=== PATIENT | female | born 1955 | race Caucasian/White ===

== ENCOUNTER 2017-11-17 23:13 | Inpatient (IN) | payer OTHER ==
[~2017-11-17] VITALS: Ht 170.2 cm; Wt 87.0 kg
[2017-11-18] VITALS (12 sets, daily range): BP systolic 161–189; BP diastolic 70–80; PULSE 71–80; RESP 10–23; TEMP 98.4–98.9; O2SAT 94–99
[2017-11-18] MEDS ORDERED: LACTULOSE SYRUP 20 GM/30 ML CUP PO PRN (03:30)
[2017-11-18] MEDS ORDERED: RESP: ALBUTEROL 2.5 MG/IPRATROPIUM 0.5 MG NEB (PRN) INH (03:30)
[2017-11-18] MEDS ORDERED: BISACODYL 10 MG SUPP RECTAL PRN (03:30)
[2017-11-18] MEDS ORDERED: MISCELLANEOUS NURSING INFORMATION XX SCH (03:30)
[2017-11-18] MEDS ORDERED: CHLORHEXIDINE GLUCONATE 2 % 1 PACK (2 CLOTHS) TOP PRN (03:30)
[2017-11-18] MEDS ORDERED: HYDROmorphone HCL PF 2 MG/ML VIAL IV PRN (03:45)
[2017-11-18] MEDS: CHLORHEXIDINE GLUCONATE 2 % 1 PACK (2 CLOTHS) TOP SCH (03:57)
[2017-11-18] MEDS: D5-1/2 NS + KCL 20 MEQ INJ 1,000 ML IV SCH ×3 (04:11→23:31)
[2017-11-18] MEDS: HYDROmorphone HCL PF 2 MG/ML VIAL IV PRN ×3 (04:12→21:41)
[2017-11-18] MEDS: ONDANSETRON HCL 4 MG/2 ML VIAL IV PUSH PRN ×2 (04:12→12:15)
[2017-11-18 04:15] LABS: HEMATOCRIT 37.2 % (35.0-46.0); MEAN CELL VOLUME 85.1 FL (80.0-100.0); MEAN CORPUSCULAR HEMOGLOBIN 29.7 PG (27.0-34.0); MEAN CORPUSCULAR HGB CONC 34.9 % (32.0-36.0); MEAN PLATELET VOLUME 9.5 FL (7.0-11.0); PLATELET COUNT 152 TH/MM3 (150-450); RED BLOOD COUNT 4.37 MIL/MM3 (4.00-5.30); RED CELL DISTRIBUTION WIDTH 14.1 % (11.6-17.2); WHITE BLOOD COUNT 7.2 TH/MM3 (4.0-11.0)
--- NOTE | 2017-11-18 04:16 | HHI.HP ---
HPI Service Critical Care Medicine Primary Care Physician Unknown Admission Diagnosis Elevated LFTs, CBD obstruction Diagnosis: Travel History International Travel<30 Days: No Contact w/Intl Traveler <30 Da: No Traveled to Known Affected Are: No History of Present Illness 62-year-old female was admitted to the [facility] when she presented with abdominal pain going on for about a week. She was diagnosed to be in DKA. CT abdomen pelvis done on 11/15 revealed cholelithiasis as well as 10 mm pancreatic head hypodensity possibly a cyst. Patient was initially treated with insulin drip which was subsequently discontinued on 11/16. She underwent imaging studies including MRCP on 11/16 which revealed abrupt cutoff of common hepatic duct related to cystic mass in the pancreatic head. HIDA scan on 11/17 revealed normal gallbladder, CBD and obstruction of common hepatic duct. Patient was transferred to [facility] for evaluation by GI for ERCP. Patient was admitted by critical care medicine service to [facility]. I evaluated the patient following her arrival. She was hemodynamically stable maintaining her blood pressure and denied any shortness of breath fever or chills. She did have some nausea and abdominal pain. Denied any diarrhea, melena or rectal bleeding. History is obtained by discussion with patient as well as reviewing records sent over from [facility]. Review of Systems ROS Per HPI. Otherwise unremarkable Past Family Social History Allergies: Coded Allergies: metoclopramide (Unverified Allergy, Mild, 11/18/17) Past Medical History Denies any medical problems before. Past Surgical History Hysterectomy Reported Medications Lovenox 40 mg subcutaneous tennis daily, Zofran 4 mg IV every 4 hourly when necessary, D5 half NS with 20mEq KCl at 150 cc per hour, Dilaudid 0.5 mg every 3 hourly when necessary for pain, sliding scale insulin Family History Noncontributory at this time Social History Mother in her late 80s from an [place]. Physical Exam Laboratory Labs from outside hospital reviewed: White count 5.6, hemoglobin 11.5, hematocrit 33.8, platelets 135 Total bilirubin 8.9, direct bilirubin 7.34, AST 1038, ALP 1306, alkaline phosphatase 746, total protein 5.3, albumin 2.7, amylase 61, lipase 64 Sodium 141, potassium 3.3, chloride 111, bicarbonate 20, and BUN 12, creatinine 0.37, glucose 183, calcium 8.5, phosphorus 1.8, magnesium 1.8 Caprini VTE Risk Assessment Caprini VTE Risk Assessment: Mod/High Risk (score >= 2) VTE Pharm Contraindication: for possible ERCP Caprini Risk Assessment Model Point Value = 1 Point Value = 2 Point Value = 3 Point Value = 5 Age 41-60 Minor surgery BMI > 25 kg/m2 Swollen legs Varicose veins or History of unexplained or recurrent spontaneous Oral contraceptives or hormone replacement Sepsis (< 1 month) Serious lung disease, including pneumonia (< 1 month) Abnormal pulmonary function Acute myocardial infarction Congestive heart failure (< 1 month) History of inflammatory bowel disease Medical patient at bed rest Age 61-74 Arthroscopic surgery Major open surgery (> 45 min) Laparoscopic surgery (> 45 min) Malignancy Confined to bed (> 72 hours) Immobilizing plaster cast Central venous access Age >= 75 History of VTE Family history of VTE Factor V Leiden Prothrombin [id number] Lupus anticoagulant Anticardiolipin antibodies Elevated serum homocysteine Heparin-induced thrombocytopenia Other congenital or acquired thrombophilia Stroke (< 1 month) Elective arthroplasty Hip, pelvis, or leg fracture Acute spinal cord injury (< 1 month) Prophylaxis Regimen Total Risk Factor Score Risk Level Prophylaxis Regimen 0-1 Low Early ambulation 2 Moderate Order ONE of the following: *Sequential Compression Device (SCD) *Heparin 5000 units SQ BID 3-4 Higher Order ONE of the following medications: *Heparin 5000 units SQ TID *Enoxaparin/Lovenox 40 mg SQ daily (WT < 150 kg, CrCl > 30 mL/min) *Enoxaparin/Lovenox 30 mg SQ daily (WT < 150 kg, CrCl > 10-29 mL/min) *Enoxaparin/Lovenox 30 mg SQ BID (WT < 150 kg, CrCl > 30 mL/min) AND/OR *Sequential Compression Device (SCD) 5 or more Highest Order ONE of the following medications: *Heparin 5000 units SQ TID (Preferred with Epidurals) *Enoxaparin/Lovenox 40 mg SQ daily (WT < 150 kg, CrCl > 30 mL/min) *Enoxaparin/Lovenox 30 mg SQ daily (WT < 150 kg, CrCl > 10-29 mL/min) *Enoxaparin/Lovenox 30 mg SQ BID (WT < 150 kg, CrCl > 30 mL/min) AND *Sequential Compression Device (SCD) Assessment and Plan Assessment and Plan 62-year-old female with: New onset Diabetes mellitus DKA which is now resolved Cystic lesion and pancreatic head with common hepatic duct obstruction/ obstructive jaundice Elevated LFTs Cholelithiasis Hypertension Plan: Patient admitted to the ICU Dilaudid when necessary for pain, Percocet when necessary for pain Supplemental O2 as needed. Bronchodilators when necessary IV hydration. Keep nothing by mouth. GI consult requested for evaluation for ERCP for biliary tract obstruction from possible cystic lesion and pancreatic head. May eventually require laparoscopic cholecystectomy. Sliding scale insulin for glycemic control. Add Levemir 10 units subcutaneously daily as patient presented with DKA to outside hospital. Strict intake output, monitor and replete elect lites, follow BUN creatinine. Follow CBC and coags. GI prophylaxis with Pepcid, DVT prophylaxis with SCDs. Resume subcutaneous Lovenox when okay with GI. Further recommendations per GI. Patient will be transferred to hospitalist service for further medical management as she will possibly be transferred out of ICU following ERCP. Misha Braxton MD Nov 18, 2017 04:16
[2017-11-18 04:25] LABS: PROTHROMBIN TIME - PATIENT 10.1 SEC (9.8-11.6)
[2017-11-18] MEDS ORDERED: DEXTROSE 50% IN WATER 50 ML VIAL(D50) IV PRN (04:30)
[2017-11-18] MEDS ORDERED: GLUCAGON 1 MG/ML VIAL IM/SQ PRN (04:30)
[2017-11-18 04:40] LABS: ALBUMIN 2.6 GM/DL (3.4-5.0); AST (GOT) 969 U/L (15-37); BICARBONATE 23.1 MEQ/L (21.0-32.0); BLOOD UREA NITROGEN 7 MG/DL (7-18); CALCIUM 8.8 MG/DL (8.5-10.1); CHLORIDE 105 MEQ/L (98-107); CREATININE 0.81 MG/DL (0.50-1.00); GLUCOSE,RANDOM 227 MG/DL (74-106); MAGNESIUM 1.6 MG/DL (1.5-2.5); SODIUM (NA) 138 MEQ/L (136-145)
[2017-11-18 04:54] LABS: ALKALINE PHOSPHATASE 1001 U/L (45-117); ALT (GPT) 1404 U/L (10-53); PHOSPHORUS 1.7 MG/DL (2.5-4.9); TOTAL BILIRUBIN ADULT 12.1 MG/DL (0.2-1.0); TOTAL PROTEIN 5.8 GM/DL (6.4-8.2)
[2017-11-18 05:12] LABS: BANDS 4 % (0-6); BASOPHILS 1 % (0-2); LYMPHOCYTES 33 % (9-44); MONOCYTES 2 % (0-8); NEUTROPHIL # MANUAL DIFF 4.5 TH/MM3 (1.8-7.7); POLYS (SEG NEUTROPHILS) 59 % (16-70); STOMATOCYTES 1+ (NORMAL)
[2017-11-18 05:13] LABS: ACANTHOCYTES OCC (NORMAL)
[2017-11-18] MEDS: INSULIN ASPART SUPPLEMENTAL SCALE SQ SCH ×4 (05:50→22:04)
[2017-11-18] MEDS: FAMOTIDINE 20 MG/2 ML VIAL IV PUSH SCH ×2 (08:09→21:34)
[2017-11-18] MEDS: SODIUM CHLORIDE 0.9% FLUSH 10 ML FLUSH IV FLUSH SCH ×2 (08:09→21:34)
[2017-11-18] MEDS: INSULIN DETEMIR 100 UNITS/ML VIAL SQ SCH ×2 (08:09→21:34)
[2017-11-18] MEDS ORDERED: POTASSIUM PHOSPHATE MONOBASIC 500 MG TAB PO PRN (08:30)
[2017-11-18] MEDS ORDERED: MAGNESIUM OXIDE 400 MG TAB PO PRN (08:30)
[2017-11-18] MEDS ORDERED: POTASSIUM CHLORIDE 25 MEQ EFFERVESCENT TAB PO PRN (08:30)
[2017-11-18] MEDS ORDERED: POTASSIUM PHOSPHATE MONOBASIC 500 MG TAB PO/TUBE PRN (08:30)
[2017-11-18] MEDS ORDERED: MAGNESIUM SULFATE INJ 4 GM in SODIUM CHLORIDE 0.9% INJ 92 ML IV PRN (08:30)
[2017-11-18] MEDS ORDERED: POTASSIUM CHLOR 40 MEQ PREMIX 100 ML IV PRN ×2 (08:30)
[2017-11-18] MEDS ORDERED: MAGNESIUM SULFATE INJ 2 GM in SODIUM CHLORIDE 0.9% INJ 96 ML IV PRN (08:30)
[2017-11-18] MEDS ORDERED: POTASSIUM PHOSPHATE INJ 30 MMOL in SODIUM CHLOR 0.9% 250 ML INJ 250 ML IV PRN (08:30)
[2017-11-18] MEDS ORDERED: SODIUM PHOSPHATE INJ 30 MMOL in SODIUM CHLOR 0.9% 250 ML INJ 240 ML IV PRN (08:30)
--- NOTE | 2017-11-18 08:55 | RADRPT ---
EXAM DATE/TIME: 11/18/2017 08:35 [facility] COMPARISON: No previous studies available for comparison. INDICATIONS : Dypnea. MEDICAL HISTORY : Diabetes. SURGICAL HISTORY : Hysterectomy. ENCOUNTER: Initial ACUITY: 1 day PAIN SCORE: 0/10 LOCATION: Bilateral chest FINDINGS: Mild airspace disease in the left lower lung zone at the base. Cardiomedias noncontrast within normal limits. Bony thorax is intact. CONCLUSION: 1. Left lung base airspace disease, presumably atelectasis. Developing pneumonia cannot be excluded i n the appropriate clinical setting. Ameya Valdez MD on November 18, 2017 at 8:52 Board Certified Radiologist. This report was verified electronically.
--- NOTE | 2017-11-18 10:28 | PD.CONS ---
HPI History of Present Illness This is a 62 year old female who presented with abd pain and nausea that started 8 days ago, she was transferred from [place] for an ERCP. She started having upper quadrant pain 8 days ago. Admits vomiting but no emesis. Feels her abdomen has been more distended of late. No prior hx liver problems or problems with gallbladder or pancreas. Never had this pain before. Denies diarrhea. Not on blood thinenrs. Admits DM but controls with diet, takes not meds for it. CT 11/15/17 showed cholelithiasis, pancreatic head density poss cyst , MRCP 11/16 showed cystic mass, HIDA 11/17 indicated CBD obstruction. (Hortencia Chen) PFSH Past Medical History DM controlled with diet OA bursitis Past Surgical History hysterectomy (Hortencia Chen) Coded Allergies: metoclopramide (Unverified Allergy, Mild, 11/18/17) Family History low blood pressure Social History denies toxic habits (Hortencia Chen) Review of Systems Constitutional: DENIES: Fever Endocrine: DENIES: Polydipsia Eyes: DENIES: Blurred vision Ears, nose, mouth, throat: DENIES: Hearing loss Respiratory: DENIES: Cough Cardiovascular: DENIES: Chest pain Gastrointestinal: COMPLAINS OF: Abdominal pain, Nausea, Swelling of Abdomen, DENIES: Diarrhea, Vomiting Musculoskeletal: DENIES: Joint pain Integumentary: COMPLAINS OF: Jaundice Hematologic/lymphatic: DENIES: Bruising Immunologic/allergic: DENIES: Eczema Neurologic: DENIES: Abnormal gait Psychiatric: DENIES: Confusion (Hortencia Chen) GI Exam Vitals I&O Vital Signs Date Time Temp Pulse Resp B/P (MAP) Pulse Ox O2 Delivery O2 Flow Rate FiO2 11/18/17 08:00 98.7 80 23 177/75 (109) 99 11/18/17 08:00 71 11/18/17 06:00 72 11/18/17 05:00 98.6 74 10 173/74 (107) 96 11/18/17 04:00 98.6 75 12 185/80 (115) 97 11/18/17 04:00 75 I/O 11/17/17 11/17/17 11/17/17 11/18/17 11/18/17 11/18/17 07:00 15:00 23:00 07:00 15:00 23:00 Output Total 700 ml Balance -700 ml Output Urine Total 700 ml Imaging Last Impressions Chest X-Ray 11/18/17 0000 Signed Impressions: Service Date/Time: Saturday, November 18, 2017 08:35 - CONCLUSION: 1. Left lung base airspace disease, presumably atelectasis. Developing pneumonia cannot be excluded in the appropriate clinical setting. Ameya Valdez MD Laboratory Test 11/18/17 02:44 11/18/17 03:55 Nasal Screen MRSA (PCR) MRSA NOT DETECTED White Blood Count 7.2 TH/MM3 Red Blood Count 4.37 MIL/MM3 Hemoglobin 13.0 GM/DL Hematocrit 37.2 % Mean Corpuscular Volume 85.1 FL Mean Corpuscular Hemoglobin 29.7 PG Mean Corpuscular Hemoglobin Concent 34.9 % Red Cell Distribution Width 14.1 % Platelet Count 152 TH/MM3 Mean Platelet Volume 9.5 FL CBC Comment AUTO DIFF Differential Total Cells Counted 100 Neutrophils % (Manual) 59 % Band Neutrophils % 4 % Lymphocytes % 33 % Monocytes % 2 % Eosinophils % 1 % Basophils % 1 % Neutrophils # (Manual) 4.5 TH/MM3 Differential Comment FINAL DIFF MANUAL Atypical Lymphocytes % Platelet Estimate NORMAL Platelet Morphology Comment NORMAL Stomatocytes 1+ Acanthocytes OCC Prothrombin Time 10.1 SEC Prothromb Time International Ratio 1.0 RATIO Activated Partial Thromboplast Time 24.3 SEC Blood Urea Nitrogen 7 MG/DL Creatinine 0.81 MG/DL Random Glucose 227 MG/DL Total Protein 5.8 GM/DL Albumin 2.6 GM/DL Calcium Level 8.8 MG/DL Phosphorus Level 1.7 MG/DL Magnesium Level 1.6 MG/DL Alkaline Phosphatase 1001 U/L Aspartate Amino Transf (AST/SGOT) 969 U/L Alanine Aminotransferase (ALT/SGPT) 1404 U/L Total Bilirubin 12.1 MG/DL Sodium Level 138 MEQ/L Potassium Level 3.4 MEQ/L Chloride Level 105 MEQ/L Carbon Dioxide Level 23.1 MEQ/L Anion Gap 10 MEQ/L Amylase Level 29 U/L Lipase 189 U/L Physical Examination HEENT: PERRL; normocephalic; atraumatic; +icterus CHEST: CTA CARDIAC: RRR ABDOMEN: Soft, distended, diffuse TTP > upper quadrant; no hepatosplenomegaly ; bowel sounds are present in all four quadrants. EXTREMITIES: No clubbing, cyanosis, trace BLE edema SKIN: Normal; no rash; +jaundice. FELT STRIP FINISHER: No focal deficits; alert and oriented times three. (Hortencia Chen) Assessment and Plan Plan ASSESSMENT - abd pain, jaundice, elevated LFTs - LFTs elevated obstructive pattern, upper quadrant pain, nausea. choledocholithiasis vs cystic obstruction CBD CT 11/15 showed cholelithiasis, poss cyst pancreatic head, MRCP 11/16 showed cystic mass, HIDA 11/17 suggestive CBD obstruction. WBC is WNL - ?ascites - abd soft and distended. liver US is pending. PLAN - ERCP today - NPO - obtain consent - await hepatitis profile - liver w/u - await liver US - CMP in a - further recs to follow pt seen by myself and Dr Hickey and this note is on his behalf (Hortencia Chen) Physician Comments Seen and examined. Procedure explained, including risk, benefits and possible complications. Further recommendations to follow. (Luther Hickey MD) Hortnecia Chen Nov 18, 2017 10:28 Luther Hickey MD Nov 18, 2017 14:48
[2017-11-18] MEDS ORDERED: GLYCOPYRROLATE 1 MG/5 ML SYRINGE IV PUSH ONE (12:00)
[2017-11-18] MEDS ORDERED: SUCCINYLCHOLINE CHLORIDE 200 MG/10 ML VIAL IV ONE (12:00)
[2017-11-18] MEDS ORDERED: NEOSTIGMINE 5 MG/5 ML SYRINGE IV PUSH ONE (12:00)
[2017-11-18] MEDS ORDERED: ROCURONIUM INJ 50 MG/5 ML SYRINGE IV PUSH ONE (12:00)
[2017-11-18] MEDS ORDERED: LIDOCAINE HCL 1% PF 5 ML SYRINGE OTHER ONE (12:00)
[2017-11-18] MEDS ORDERED: PROPOFOL 200 MG/20 ML AMP IV ONE (12:00)
--- NOTE | 2017-11-18 12:23 | RADRPT ---
EXAM DATE/TIME: 11/18/2017 09:04 [facility] COMPARISON: No previous studies available for comparison. INDICATIONS : Increased lab values. MEDICAL HISTORY : Arthritis. Diabetes. SURGICAL HISTORY : Hysterectomy. ENCOUNTER: Initial ACUITY: 1 day PAIN SCORE: 5/10 LOCATION: Bilateral upper quadrant MEASUREMENTS: LIVER: 17.8 cm length COMMON DUCT: 6 mm RIGHT KIDNEY: 12.1 x 5.6 x 5.3 cm SPLEEN: 12.9 cm length FINDINGS: Pancreas unremarkable. Fatty liver. Gallbladder has extensive shadowing in the fossa, probably do to numerous gallstones. Common bile duct is mildly prominent at 6 mm with some possible sludge within th e bile duct. Right kidney unremarkable. Spleen upper limits normal for size. No free fluid. CONCLUSION: 1. Extensive shadowing in the gallbladder fossa probably related to multiple gallstones. 2. Enlarged, fatty liver. 3. Probable sludge in common bile duct. Philip Mcgowan MD on November 18, 2017 at 12:20 Board Certified Radiologist. This report was verified electronically.
[2017-11-18] MEDS ORDERED: POVIDONE IODINE 5% (ANTISEPSIS KIT) 4 APPLICATIONS EACH NARE PRN (13:30)
[2017-11-18] MEDS ORDERED: METOPROLOL TARTRATE 25 MG TAB PO PRN (13:30)
[2017-11-18] MEDS ORDERED: SODIUM CHLORID 0.9% 500 ML IV PRN (13:30)
[2017-11-18] MEDS ORDERED: LACTATED RINGER'S 1000 ML IV PRN (13:30)
[2017-11-18] MEDS ORDERED: CHLORHEXIDINE GLUCONATE 2 % 1 PACK (2 CLOTHS) TOPICAL PRN (13:30)
[2017-11-18 13:46] LABS: HEPATITIS A AB IGM NEGATIVE (NEGATIVE); HEPATITIS B CORE AB IGM NEGATIVE (NEGATIVE)
--- NOTE | 2017-11-18 14:47 | GIPROC ---
[facility] [address]. [facility], [address] ERCP PROCEDURE REPORT EXAM DATE: 11/18/2017 PATIENT NAME: Haydee Polo MR #: [id number] BIRTHDATE: 1955 ATTENDING: Luther Hickey MD ORDER #: [id number] INDUSTRIAL PIPEFITTER JOURNEYMAN: Inna Macdonald and Christoph Saleh STATUS: inpatient INDICATIONS: The patient is a 62 yr old female here for an ERCP due to abnormal liver function test and abnormal MRCP PROCEDURE PERFORMED: ERCP MEDICATIONS: None and Per Anesthesia. CONSENT: The patient understands the risks and benefits of the procedure and understands that these risks include, but are not limited to: sedation, allergic reaction, infection, perforation and/or bleeding. Alternative means of evaluation and treatment include, among others: physical exam, x-rays, and/or surgical intervention. The patient elects to proceed with this endoscopic procedure. medical equipment was checked for proper function. Hand hygiene and appropriate measures for infection prevention was taken. After the risks, benefits and alternatives of the procedure were thoroughly explained, Informed was verified, confirmed and timeout was successfully executed by the treatment team. With the patient in left semi-prone position, medications were administered intravenously.The Pentax [id number] was passed from the mouth into the esophagus and further advanced from the esophagus into the stomach. From stomach scope was directed to the second portion of the duodenum. Major papilla was aligned with the duodenoscope. The scope position was confirmed fluoroscopically. Rest of the findings/therapeutics are given below. The scope was then completely withdrawn from the patient and the procedure completed. The pulse, BP, and O2 saturation were monitored and documented by the physician and the nursing staff throughout the entire procedure. The patient was cared for as planned according to standard protocol. The patient was then discharged to recovery in stable condition and with appropriate post procedure care. The ampulla was located the second portion of the duodenum. The ampulla appeared distorted. The ampulla was located. Failed free cannulation likely secondary to total obstruction. ADVERSE EVENT: There were no complications. IMPRESSIONS: 1. Ampulla appeared distorted with ulcer and scarring 2. Failed free cannulation likely secondary to total obstruction RECOMMENDATIONS: Interventional radiology for PTC REPEAT EXAM: As needed Luther Hickey MD eSigned: Luther Hickey MD 11/18/2017 2:46 PM cc:
[2017-11-18] MEDS ORDERED: DO NOT ADM ANY ANTICOAGULANT DRUGS PRN (15:15)
[2017-11-18] MEDS: LABETALOL HCL 100 MG/20 ML VIAL IV PUSH PRN (15:46)
[2017-11-18] MEDS ORDERED: METOPROLOL TARTRATE 25 MG TAB PO ONE (19:00)
[2017-11-18] MEDS: hydrALAZINE HCL 20 MG/ML VIAL IV PUSH PRN (20:07)
[2017-11-18 21:55] LABS: HEMATOCRIT 36.1 % (35.0-46.0); HEMOGLOBIN 12.5 GM/DL (11.6-15.3); MEAN CELL VOLUME 85.5 FL (80.0-100.0); MEAN CORPUSCULAR HEMOGLOBIN 29.5 PG (27.0-34.0); MEAN CORPUSCULAR HGB CONC 34.5 % (32.0-36.0); MEAN PLATELET VOLUME 10.2 FL (7.0-11.0); PLATELET COUNT 170 TH/MM3 (150-450); RED BLOOD COUNT 4.23 MIL/MM3 (4.00-5.30); RED CELL DISTRIBUTION WIDTH 14.1 % (11.6-17.2)
[2017-11-18 21:58] LABS: ALBUMIN 2.6 GM/DL (3.4-5.0); AST (GOT) 888 U/L (15-37); BICARBONATE 26.6 MEQ/L (21.0-32.0); BLOOD UREA NITROGEN 8 MG/DL (7-18); CALCIUM 8.9 MG/DL (8.5-10.1); CHLORIDE 101 MEQ/L (98-107); CREATININE 0.75 MG/DL (0.50-1.00); GLOMERULAR FILTRATION RATE 79 ML/MIN (>89); GLUCOSE,RANDOM 242 MG/DL (74-106); SODIUM (NA) 136 MEQ/L (136-145)
[2017-11-18 22:12] LABS: ALKALINE PHOSPHATASE 1127 U/L (45-117); ALT (GPT) 1350 U/L (10-53); TOTAL PROTEIN 5.8 GM/DL (6.4-8.2)
[2017-11-18 22:41] LABS: BANDS 2 % (0-6); LYMPHOCYTES 22 % (9-44); MONOCYTES 3 % (0-8); NEUTROPHIL # MANUAL DIFF 5.9 TH/MM3 (1.8-7.7); POLYS (SEG NEUTROPHILS) 72 % (16-70)
[2017-11-18 22:42] LABS: ACANTHOCYTES OCC (NORMAL); STOMATOCYTES 1+ (NORMAL); TARGET CELLS 1+ (NORMAL)
[2017-11-19] VITALS (11 sets, daily range): BP systolic 121–173; BP diastolic 59–76; PULSE 68–78; RESP 10–13; TEMP 98–99.1; O2SAT 95–96
[2017-11-19] MEDS: ONDANSETRON HCL 4 MG/2 ML VIAL IV PUSH PRN ×2 (03:04→08:59)
[2017-11-19] MEDS: CHLORHEXIDINE GLUCONATE 2 % 1 PACK (2 CLOTHS) TOP SCH (04:00)
[2017-11-19] MEDS: HYDROmorphone HCL PF 2 MG/ML VIAL IV PRN ×3 (05:18→17:33)
[2017-11-19] MEDS: hydrALAZINE HCL 20 MG/ML VIAL IV PUSH PRN ×2 (05:42→13:13)
[2017-11-19] MEDS: INSULIN ASPART SUPPLEMENTAL SCALE SQ SCH ×3 (05:43→18:42)
[2017-11-19 05:56] LABS: HEMATOCRIT 34.9 % (35.0-46.0); HEMOGLOBIN 12.2 GM/DL (11.6-15.3); MEAN CELL VOLUME 85.4 FL (80.0-100.0); MEAN CORPUSCULAR HEMOGLOBIN 29.8 PG (27.0-34.0); MEAN CORPUSCULAR HGB CONC 34.9 % (32.0-36.0); MEAN PLATELET VOLUME 10.6 FL (7.0-11.0); PLATELET COUNT 161 TH/MM3 (150-450); RED BLOOD COUNT 4.08 MIL/MM3 (4.00-5.30); RED CELL DISTRIBUTION WIDTH 14.1 % (11.6-17.2); WHITE BLOOD COUNT 8.8 TH/MM3 (4.0-11.0)
[2017-11-19 06:08] LABS: ALBUMIN 2.5 GM/DL (3.4-5.0); AST (GOT) 843 U/L (15-37); BICARBONATE 23.5 MEQ/L (21.0-32.0); BLOOD UREA NITROGEN 8 MG/DL (7-18); CALCIUM 8.9 MG/DL (8.5-10.1); CHLORIDE 99 MEQ/L (98-107); CREATININE 0.62 MG/DL (0.50-1.00); GLOMERULAR FILTRATION RATE 98 ML/MIN (>89); GLUCOSE,RANDOM 214 MG/DL (74-106); IRON (FE) 65 MCG/DL (50-170); SODIUM (NA) 137 MEQ/L (136-145)
[2017-11-19 06:13] LABS: % SATURATION IRON PROFILE 19.3 % (20-50); ALKALINE PHOSPHATASE 1156 U/L (45-117); ALT (GPT) 1228 U/L (10-53); FERRITIN 1490 NG/ML (8-252); PHOSPHORUS 2.3 MG/DL (2.5-4.9); TOTAL BILIRUBIN ADULT 13.9 MG/DL (0.2-1.0); TOTAL IRON BINDING CAPACITY 336 MCG/DL (250-450); TOTAL PROTEIN 5.5 GM/DL (6.4-8.2)
[2017-11-19] MEDS: METOPROLOL TARTRATE 25 MG TAB PO SCH ×2 (07:21→20:10)
[2017-11-19] MEDS: FAMOTIDINE 20 MG/2 ML VIAL IV PUSH SCH ×2 (07:21→20:10)
[2017-11-19] MEDS: POTASSIUM CHLOR 20 MEQ PREMIX 100 ML IV PRN ×4 (07:22→13:25)
[2017-11-19] MEDS: SODIUM CHLORIDE 0.9% FLUSH 10 ML FLUSH IV FLUSH SCH ×2 (07:22→20:12)
[2017-11-19] MEDS: INSULIN DETEMIR 100 UNITS/ML VIAL SQ SCH ×2 (07:22→20:11)
[2017-11-19] MEDS: D5-1/2 NS + KCL 20 MEQ INJ 1,000 ML IV SCH ×2 (08:09→18:43)
[2017-11-19 09:49] LABS: BANDS 6 % (0-6); LYMPHOCYTES 22 % (9-44); MONOCYTES 10 % (0-8); NEUTROPHIL # MANUAL DIFF 5.9 TH/MM3 (1.8-7.7); POLYS (SEG NEUTROPHILS) 61 % (16-70); TARGET CELLS 1+ (NORMAL)
[2017-11-19 09:50] LABS: STOMATOCYTES 1+ (NORMAL)
[2017-11-19] MEDS ORDERED: PIPERACIL-TAZO 3.375 GM PREMIX 50 ML IV ONE (10:00)
[2017-11-19] MEDS ORDERED: IOHEXOL 350 MG/ML 50 ML BTL (for RAD DIAG) OTHER ONE (11:28)
[2017-11-19] MEDS ORDERED: MORPHINE SULFATE 4 MG/ML INJ ONE ×2 (11:36)
--- NOTE | 2017-11-19 11:55 | RADRPT ---
EXAM DATE/TIME: 11/19/2017 08:38 [facility] COMPARISON: No previous studies available for comparison. INDICATIONS : Patient with a history of common bile duct obstruction. MEDICAL HISTORY : Diabetes Arthritis SURGICAL HISTORY : Hysterectomy ENCOUNTER: Initial ACUITY: 2 days PAIN SCORE: 5/10 LOCATION: Abdomen FLUORO TIME: 16.8 minutes IMAGE SERIES: 0 CONTRAST: 30 cc Omnipaque (iohexol) 350 DEVICE(S): 1.) 8 Pakistani biliary drain Anesthesia and pain control was provided by the Anesthesia department. PROCEDURE : 1. Ultrasound guided puncture of the biliary tree. 2. Percutaneous antegrade cholangiogram. 3. Biliary stent placement. 4. Conscious sedation with continuous EKG and oximetry monitoring. The risks, benefits and alternatives to the procedure were explained and verbal and written consent w as obtained. The site was prepped in sterile fashion. Full sterile technique was used, including ca p, mask, sterile gloves and gown and a large sterile sheet. Hand hygiene and 2% chlorhexidine and/or betadine/alcohol prep was utilized per protocol for cutaneous antisepsis. Sterile gel and sterile p robe cover were utilized for ultrasound guidance. The skin and subcutaneous tissues were infiltrated with local anesthetic solution. With ultrasound and fluoroscopic guidance the biliary tree was punctured with a 22 gauge Chiba needle and the biliary tree was opacified. An Accustick set was used to gain access to the biliary tree and a guidewire was passed into the duodenum. Serial dilatation was performed to accept the prescribed catheter. Injection of positive contrast demonstrates appropriate position. Antegrade cholangiogram demonstrates a large filling defect at the confluence of the hepatic ducts ex tending to the proximal left and right hepatic ducts. Conscious sedation was performed with the prescribed dosages and duration as above in the presence of an independent trained radiology nurse to assist in the monitoring of the patient. EKG and oximetry remained stable throughout the procedure. The patient tolerated the procedure well and there were n o complications. The patient was sent to post anesthesia recovery in stable condition. CONCLUSION: 1. Large filling defect/mass at the confluence of the hepatic ducts extending to the very central com mon bile duct. This has a typical Klatskin tumor appearance. 2. Uncomplicated transhepatic percutaneous drainage catheter placement. An 8 Pakistani internal/external drain was placed. Ameya Valdez MD on November 19, 2017 at 11:50 Board Certified Radiologist. This report was verified electronically.
--- NOTE | 2017-11-19 12:38 | HHI.PR ---
Subjective Remarks Patient just came from ERCP Feeling tired, jaundiced Having right abdominal pain, no nausea Objective Vitals Vital Signs Date Time Temp Pulse Resp B/P (MAP) Pulse Ox O2 Delivery O2 Flow Rate FiO2 11/19/17 10:00 78 11/19/17 08:00 77 11/19/17 08:00 99.1 75 10 151/69 (96) 96 11/19/17 06:00 78 11/19/17 04:00 74 11/19/17 04:00 99.1 74 11 173/76 (108) 95 11/19/17 02:00 77 11/19/17 00:00 98.5 77 12 155/72 (99) 95 11/19/17 00:00 77 11/18/17 22:00 79 11/18/17 20:00 98.4 73 13 184/72 (109) 99 11/18/17 20:00 73 11/18/17 18:00 71 11/18/17 16:35 18 11/18/17 16:00 73 11/18/17 16:00 98.9 73 21 161/70 (100) 94 11/18/17 15:15 77 15 176/74 (108) 97 11/18/17 15:00 78 16 182/75 (110) 98 Room Air 11/18/17 14:53 98.5 83 16 196/80 (118) 98 I/O 11/18/17 11/18/17 11/18/17 11/19/17 11/19/17 11/19/17 07:00 15:00 23:00 07:00 15:00 23:00 Intake Total 700 ml 2121 ml 200 ml Output Total 700 ml 1200 ml 1700 ml 1400 ml Balance -700 ml -500 ml 421 ml -1200 ml Intake Oral 480 ml 200 ml IV Total 1641 ml Other 700 ml Output Urine Total 700 ml 1200 ml 1700 ml 1400 ml Stool Total 0 ml 0 ml # Bowel Movements 0 Result Diagram: 11/19/1731411/19/17314 Objective Remarks GENERAL: This is a well-nourished, well-developed patient, in no apparent distress. SKIN: Jaundice Eyes: Icterus sclera CARDIOVASCULAR: Regular rate and rhythm without murmurs, gallops, or rubs. RESPIRATORY: Fair air entry bilaterally. No wheezes, rales, or rhonchi. GASTROINTESTINAL: Abdomen soft, tender to palpation on the right, nondistended. Positive bowel sounds MUSCULOSKELETAL: Extremities without clubbing, cyanosis, or edema. Pedal pulses appreciated NEUROLOGICAL: Awake and alert. Moves all extremity. Normal speech.no focal neurological deficit A/P Assessment and Plan 62-year-old female with: New onset Diabetes mellitus DKA which is now resolved Cystic lesion and pancreatic head with common hepatic duct obstruction/ obstructive jaundice Elevated LFTs Cholelithiasis Hypertension Plan: Status post ERCP 11/19, repeat CMP, follow with surgery for further recommendation, monitor fever and WBC Resume clear liquid diet Dilaudid when necessary for pain, Percocet when necessary for pain Supplemental O2 as needed. Bronchodilators when necessary IV hydration. Appreciate GI consultation status post ERCP for biliary tract obstruction from possible cystic lesion and pancreatic head. Surgery following to decide on laparoscopic cholecystectomy. Sliding scale insulin for glycemic control. Add Levemir 10 units subcutaneously daily as patient presented with DKA to outside hospital. Strict intake output, monitor and replete elect lites, follow BUN creatinine. Follow CBC and coags. GI prophylaxis with Pepcid, DVT prophylaxis with SCDs. Resume subcutaneous Lovenox when okay with GI. Further recommendations per GI. Corrine Montano MD Nov 19, 2017 12:38
--- NOTE | 2017-11-19 15:29 | HHI.GIFU ---
Subjective Remarks Pt resting in bed, s/p biliary drain placement. Says she has some improvement in abd pain. (Hortencia Chen) Objective Vitals I&O Vital Signs Date Time Temp Pulse Resp B/P (MAP) Pulse Ox O2 Delivery O2 Flow Rate FiO2 11/19/17 14:00 73 11/19/17 12:35 18 11/19/17 12:35 18 11/19/17 12:00 98.3 73 12 121/59 (79) 95 11/19/17 12:00 68 11/19/17 10:00 78 11/19/17 08:00 77 11/19/17 08:00 99.1 75 10 151/69 (96) 96 11/19/17 06:00 78 11/19/17 04:00 74 11/19/17 04:00 99.1 74 11 173/76 (108) 95 11/19/17 02:00 77 11/19/17 00:00 98.5 77 12 155/72 (99) 95 11/19/17 00:00 77 11/18/17 22:00 79 11/18/17 20:00 98.4 73 13 184/72 (109) 99 11/18/17 20:00 73 11/18/17 18:00 71 11/18/17 16:00 73 11/18/17 16:00 98.9 73 21 161/70 (100) 94 I/O 11/18/17 11/18/17 11/18/17 11/19/17 11/19/17 11/19/17 07:00 15:00 23:00 07:00 15:00 23:00 Intake Total 700 ml 2121 ml 200 ml Output Total 700 ml 1200 ml 1700 ml 1400 ml Balance -700 ml -500 ml 421 ml -1200 ml Intake Oral 480 ml 200 ml IV Total 1641 ml Other 700 ml Output Urine Total 700 ml 1200 ml 1700 ml 1400 ml Stool Total 0 ml 0 ml # Bowel Movements 0 Laboratory Laboratory Tests Test 11/18/17 20:08 11/19/17 03:15 White Blood Count 8.0 8.8 Red Blood Count 4.23 4.08 Hemoglobin 12.5 12.2 Hematocrit 36.1 34.9 Mean Corpuscular Volume 85.5 85.4 Mean Corpuscular Hemoglobin 29.5 29.8 Mean Corpuscular Hemoglobin Concent 34.5 34.9 Red Cell Distribution Width 14.1 14.1 Platelet Count 170 161 Mean Platelet Volume 10.2 10.6 CBC Comment AUTO DIFF AUTO DIFF Differential Total Cells Counted 100 100 Neutrophils % (Manual) 72 61 Band Neutrophils % 2 6 Lymphocytes % 22 22 Monocytes % 3 10 Eosinophils % 1 1 Neutrophils # (Manual) 5.9 5.9 Differential Comment FINAL DIFF MANUAL FINAL DIFF MANUAL Platelet Estimate NORMAL NORMAL Platelet Morphology Comment NORMAL ENLARGED Target Cells 1+ 1+ Stomatocytes 1+ 1+ Acanthocytes OCC Blood Urea Nitrogen 8 8 Creatinine 0.75 0.62 Random Glucose 242 214 Total Protein 5.8 5.5 Albumin 2.6 2.5 Calcium Level 8.9 8.9 Alkaline Phosphatase 1127 1156 Aspartate Amino Transf (AST/SGOT) 888 843 Alanine Aminotransferase (ALT/SGPT) 1350 1228 Total Bilirubin 14.0 13.9 Sodium Level 136 137 Potassium Level 3.6 3.2 Chloride Level 101 99 Carbon Dioxide Level 26.6 23.5 Anion Gap 8 15 Estimat Glomerular Filtration Rate 79 98 Phosphorus Level 2.3 Magnesium Level 2.0 Iron Level 65 Total Iron Binding Capacity 336 Percent Iron Saturation 19.3 Ferritin 1490 Tumor Marker Alpha Fetoprotein 2.1 Imaging Last Impressions Bile Duct Drainage 11/19/17 0000 Signed Impressions: Service Date/Time: Sunday, November 19, 2017 08:38 - CONCLUSION: 1. Large filling defect/mass at the confluence of the hepatic ducts extending to the very central common bile duct. This has a typical Klatskin tumor appearance. 2. Uncomplicated transhepatic percutaneous drainage catheter placement. An 8 Amharic internal/external drain was placed. Ameya Valdez MD Liver Ultrasound 11/18/17 0000 Signed Impressions: Service Date/Time: Saturday, November 18, 2017 09:04 - CONCLUSION: 1. Extensive shadowing in the gallbladder fossa probably related to multiple gallstones. 2. Enlarged, fatty liver. 3. Probable sludge in common bile duct. Philip Mcgowan MD Chest X-Ray 11/18/17 0000 Signed Impressions: Service Date/Time: Saturday, November 18, 2017 08:35 - CONCLUSION: 1. Left lung base airspace disease, presumably atelectasis. Developing pneumonia cannot be excluded in the appropriate clinical setting. Ameya Valdez MD Physical Exam HEENT: PERRL; normocephalic; atraumatic; +icterus CHEST: CTA CARDIAC: RRR ABDOMEN: Soft, nondistended, RUQ and epigastric TTP; no hepatosplenomegaly; bowel sounds are present in all four quadrants. EXTREMITIES: No clubbing, cyanosis, or edema. SKIN: Normal; no rash; + jaundice. DOUGH MAKER: No focal deficits; alert and oriented times three. (Hortencia Chen) Assessment and Plan Plan ASSESSMENT - abd pain, jaundice, elevated LFTs - LFTs elevated obstructive pattern, upper quadrant pain, nausea. choledocholithiasis vs cystic obstruction CBD CT 11/15 showed cholelithiasis, poss cyst pancreatic head, MRCP 11/16 showed cystic mass, HIDA 11/17 suggestive CBD obstruction. WBC is WNL - ?ascites - abd soft and distended. liver US is pending. 11/19/17 liver US showed prob sludge CBD, prob gallstones, fatty liver. Not much change LFTs. s/p unsuccessful ERCP - ampulla distored with ulcer and scarring. s/p biliary drain placement, finding of large filling defect/ mass at confluence hepatic ducts and extending to CBD, appearance Klatskins tumor PLAN - monitor labs - GS consult - ca 19-9 - await liver w/u - further recs to follow pt seen by myself and Dr Hickey and this note is on his behalf (Hortenica Chen) Physician Comments Surgical consult requested, will follow up with you. (Luther Hickey MD) Hortencia Chen Nov 19, 2017 15:29 Luther Hickey MD Nov 19, 2017 21:36
[2017-11-19] MEDS: oxyCODONE/ACETAMINOPHEN 5 MG/325 MG TAB PO PRN (20:11)
--- NOTE | 2017-11-19 20:30 | EKG ---
Date Performed: 11/18/2017 Time Performed: 11:38:46 PTAGE: 62 years EKG: Sinus rhythm POSSIBLE ANTERIOR MYOCARDIAL INFARCTION , OF INDETERMINATE AGE INFERIOR MYOCARDIAL INFARCTION , PROB ABLY OLD ABNORMAL ECG NO PREVIOUS TRACING DOCTOR: Nuha Gay Interpretating Date/Time 11/19/2017 20:29:04
[2017-11-20] VITALS (9 sets, daily range): BP systolic 156–200; BP diastolic 67–84; PULSE 68–91; RESP 14–21; TEMP 98–99; O2SAT 94–98
[2017-11-20 00:06] LABS: TOTAL BILIRUBIN ADULT 15.5 MG/DL (0.2-1.0); TOTAL PROTEIN 5.9 GM/DL (6.4-8.2)
[2017-11-20 00:18] LABS: ALBUMIN 2.4 GM/DL (3.4-5.0); DIRECT BILIRUBIN ADULT 12.3 MG/DL (0.0-0.2); INDIRECT BILIRUBIN 3.2 MG/DL (0.0-0.8); PHOSPHORUS 2.3 MG/DL (2.5-4.9)
[2017-11-20] MEDS: HYDROmorphone HCL PF 2 MG/ML VIAL IV PRN ×3 (02:18→18:53)
[2017-11-20] MEDS: D5-1/2 NS + KCL 20 MEQ INJ 1,000 ML IV SCH ×3 (02:23→23:18)
[2017-11-20] MEDS: CHLORHEXIDINE GLUCONATE 2 % 1 PACK (2 CLOTHS) TOP SCH (02:23)
[2017-11-20] MEDS: INSULIN ASPART SUPPLEMENTAL SCALE SQ SCH ×5 (06:00→23:17)
[2017-11-20] MEDS: FAMOTIDINE 20 MG/2 ML VIAL IV PUSH SCH ×2 (09:15→20:34)
[2017-11-20] MEDS: INSULIN DETEMIR 100 UNITS/ML VIAL SQ SCH ×2 (09:16→20:34)
[2017-11-20] MEDS: METOPROLOL TARTRATE 25 MG TAB PO SCH ×2 (09:16→20:34)
[2017-11-20] MEDS: SODIUM CHLORIDE 0.9% FLUSH 10 ML FLUSH IV FLUSH SCH ×2 (09:16→20:33)
--- NOTE | 2017-11-20 13:49 | HHI.GIFU ---
Subjective Remarks Pt resting in bed in NAD. Said she got some bad news and doesn't want to talk now. (Hortencia Chen) Objective Vitals I&O Vital Signs Date Time Temp Pulse Resp B/P (MAP) Pulse Ox O2 Delivery O2 Flow Rate FiO2 11/20/17 11:52 22 11/20/17 08:00 99.0 68 16 172/72 (105) 97 11/20/17 08:00 79 11/20/17 04:00 98.3 77 14 200/84 (122) 94 11/20/17 00:00 98.2 82 21 187/77 (113) 98 11/19/17 20:00 98.0 78 13 163/71 (101) 95 11/19/17 18:00 73 11/19/17 16:00 98.5 77 11 137/63 (87) 95 11/19/17 16:00 76 11/19/17 14:00 73 I/O 11/19/17 11/19/17 11/19/17 11/20/17 11/20/17 11/20/17 07:00 15:00 23:00 07:00 15:00 23:00 Intake Total 200 ml 1200 ml 880 ml Output Total 1400 ml 1450 ml 1050 ml Balance -1200 ml -250 ml -170 ml Intake Oral 200 ml 50 ml 480 ml IV Total 1150 ml 400 ml Output Urine Total 1400 ml 1450 ml 1000 ml Stool Total 0 ml 0 ml Drainage Total 50 ml # Bowel Movements 0 0 Laboratory Laboratory Tests Test 11/19/17 22:51 11/20/17 06:05 Potassium Level 3.7 Phosphorus Level 2.3 Total Bilirubin 15.5 Direct Bilirubin 12.3 Indirect Bilirubin 3.2 Aspartate Amino Transf (AST/SGOT) 941 Alanine Aminotransferase (ALT/SGPT) 1333 Alkaline Phosphatase 1379 Total Protein 5.9 Albumin 2.4 CA 19-9 Antigen 165.4 Imaging Last Impressions Bile Duct Drainage 11/19/17 0000 Signed Impressions: Service Date/Time: Sunday, November 19, 2017 08:38 - CONCLUSION: 1. Large filling defect/mass at the confluence of the hepatic ducts extending to the very central common bile duct. This has a typical Klatskin tumor appearance. 2. Uncomplicated transhepatic percutaneous drainage catheter placement. An 8 Tajik internal/external drain was placed. Ameya Valdez MD Liver Ultrasound 11/18/17 0000 Signed Impressions: Service Date/Time: Saturday, November 18, 2017 09:04 - CONCLUSION: 1. Extensive shadowing in the gallbladder fossa probably related to multiple gallstones. 2. Enlarged, fatty liver. 3. Probable sludge in common bile duct. Philip Mcgowan MD Chest X-Ray 11/18/17 0000 Signed Impressions: Service Date/Time: Saturday, November 18, 2017 08:35 - CONCLUSION: 1. Left lung base airspace disease, presumably atelectasis. Developing pneumonia cannot be excluded in the appropriate clinical setting. Ameya Valdez MD Physical Exam HEENT: PERRL; normocephalic; atraumatic; +icterus CHEST: respiration unlabored CARDIAC: deferred ABDOMEN: deferred EXTREMITIES: No clubbing, cyanosis, or edema. SKIN: Normal; no rash; + significant jaundice. THEATRE MANAGER: No focal deficits; alert and oriented times three. (Hortencia Chen) Assessment and Plan Plan ASSESSMENT - abd pain, jaundice, elevated LFTs - LFTs elevated obstructive pattern, upper quadrant pain, nausea. choledocholithiasis vs cystic obstruction CBD CT 11/15 showed cholelithiasis, poss cyst pancreatic head, MRCP 11/16 showed cystic mass, HIDA 11/17 suggestive CBD obstruction. WBC is WNL - ?ascites - abd soft and distended. liver US is pending. 11/19/17 liver US showed prob sludge CBD, prob gallstones, fatty liver. Not much change LFTs. s/p unsuccessful ERCP - ampulla distored with ulcer and scarring. 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 CA 19-9 elevated 165. GS consult pending. pt noncontributory today. PLAN - monitor labs - await GS consult - ca 19-9 - await liver w/u - poss EUS pt seen by myself and Dr Hickey and this note is on his behalf (Hortenica Chen) Physician Comments Agree with above assessment and plan. Possible EUS. (Luther Hickey MD) Hortencia Chen 14, 2018 13:49 Luther Hickey MD Nov 20, 2017 15:34
[2017-11-20 13:56] LABS: SMOOTH MUSCLE TOTAL AUTOABS Negative (Negative)
[2017-11-20 14:57] LABS: ALPHA-1-ANTITRYPSIN 273 mg/dL (100 - 190)
[2017-11-20] MEDS: SENNOSIDES 8.6 MG TAB PO PRN (15:37)
[2017-11-20] MEDS: ONDANSETRON HCL 4 MG/2 ML VIAL IV PUSH PRN ×2 (15:38→18:53)
--- NOTE | 2017-11-20 16:44 | MB ---
cc: Elijah Jackson MD DATE OF CONSULT: 11/20/2017 REFERRING PHYSICIAN: Corrine Montano MD REASON FOR CONSULTATION: Biliary duct obstruction, gallstones. HISTORY OF PRESENT ILLNESS: Patient is a 62-year-old female who presented to [facility] with diabetic ketoacidosis and abdominal pain. The patient states she self-diagnosed herself with diabetes in the and has been treating herself with insulin since that time. Patient has never been under the supervision of a physician for her diabetes since the and has never seen a physician and had any health maintenance. The patient has not had mammograms or colonoscopies. Patient states this is due to not having insurance. The patient underwent a workup in [place] including multiple imaging. She was found to have gallstones and a biliary obstruction as well as a cystic mass in the head of the pancreas on MRCP as well as CT scan done at that time. A HIDA scan was concerning for common bile duct obstruction as well. Patient was transferred to [facility] to undergo further evaluation and possible ERCP. An attempt at ERCP was performed, but this was unable to be cannulated. The patient has since undergone a PTC and external drainage of her biliary system. Patient currently states that she does have some persistent right upper quadrant pain as well as some gas pain. She has no other fevers, chills, night sweats, nausea, vomiting, constipation, diarrhea, or any other complaints at this time. She denies chest pain, shortness of breath, or any other complaints. She would like to be transferred out of the intensive care unit as she states she cannot sleep due to noise in the ICU. Patient denies any history of malignancy. Denies any family history of GI or pancreatic malignancy. Patient has undergone CA 19-9 level, which was elevated at 165. REVIEW OF SYSTEMS: A 12-point review of systems described by the patient is negative except for the pertinent positives mentioned above in the history of present illness. PAST MEDICAL HISTORY: Diabetes mellitus, insulin dependent, osteoarthritis, bursitis. PAST SURGICAL HISTORY: Hysterectomy remotely. ALLERGIES: METOCLOPRAMIDE. SOCIAL HISTORY: Patient denies alcohol, tobacco or illicit drug use. She did smoke remotely when she was younger but quit 30 years ago. FAMILY HISTORY: Again, denies any malignancy in immediate family. PHYSICAL EXAMINATION: VITAL SIGNS: Temperature 99.0 degrees, blood pressure 172/72, heart rate 68, O2 saturation 97%. GENERAL: Patient is a well-developed, well-nourished female, in no acute distress. HEENT: Head is normocephalic, atraumatic. Pupils are round and reactive, accommodate to light. Sclerae show icterus. Oral cavity is clear. Airway is patent. NECK: Supple. No JVD. RESPIRATORY: Breath sounds present bilaterally with nonlabored breathing pattern. HEART: Regular rhythm. No murmurs. ABDOMEN: Obese, subjectively tender in the right upper quadrant without peritonitis or rebound tenderness. No organomegaly. No ascites. Normal bowel sounds. Biliary drain is in place with benign-appearing bile. BACK: No CVA tenderness. EXTREMITIES: No clubbing, cyanosis, or edema. NEUROLOGIC: Patient is alert and oriented x 3. Mood, judgment, insight are intact. Cranial nerves 2-12 are grossly intact. Nonfocal peripheral exam. LABORATORY VALUES: Significant for hemoglobin 12. Bilirubin 15.5, direct bilirubin 12.3, elevated transaminases. CA 19-9 is 165. INR is 1.0. IMAGING: Review of outside imaging, particularly a CT scan at outside hospital, is concerning for hypodense mass in the head of the pancrease highly suspicious for malignancy with also some distorsion of the superior mesenteric vein. ASSESSMENT AND PLAN: Patient is a 62-year-old female with biliary obstruction, status post percutaneous transhepatic cholangiography and external biliary drainage. My impression is the patient likely has a pancreatic adenocarcinoma that is at least borderline resectable, if not locally advanced due to significant superior mesenteric vein encasement and possibly occlusion as well as significant biliary obstruction. The patient also has gallstones, which again, may have been sort of a precipitating event or possibly incidental as far as the patient's pain. I would recommend a workup of the patient's pancreatic head mass, which would include endoscopic ultrasound and biopsy as well as a CT scan pancreatic protocol here to better evaluate the vasculature and this mass. Ideally, the patient would have an internal drain or metal stent placed for treatment of her obstructive jaundice if a malignancy is found. I will follow long with this patient. Thank you very much for the consultation. MD JULIET Morelos/MYLA , 04:02 PM , 04:42 PM
[2017-11-20 16:45] LABS: ALBUMIN 2.5 GM/DL (3.4-5.0); AST (GOT) 319 U/L (15-37); BICARBONATE 23.7 MEQ/L (21.0-32.0); BLOOD UREA NITROGEN 7 MG/DL (7-18); CALCIUM 8.4 MG/DL (8.5-10.1); CHLORIDE 99 MEQ/L (98-107); CREATININE 0.53 MG/DL (0.50-1.00); GLOMERULAR FILTRATION RATE 118 ML/MIN (>89); GLUCOSE,RANDOM 250 MG/DL (74-106); SODIUM (NA) 131 MEQ/L (136-145)
[2017-11-20 17:03] LABS: ALKALINE PHOSPHATASE 1185 U/L (45-117); ALT (GPT) 1008 U/L (10-53); TOTAL BILIRUBIN ADULT 6.5 MG/DL (0.2-1.0); TOTAL PROTEIN 6.2 GM/DL (6.4-8.2)
[2017-11-20] MEDS: LABETALOL HCL 100 MG/20 ML VIAL IV PUSH PRN (18:15)
[2017-11-20] MEDS: MAGNESIUM HYDROXIDE SUSP 30 ML CUP PO PRN (18:53)
--- NOTE | 2017-11-20 19:25 | HHI.PR ---
Subjective Remarks Patient sitting on the commode, stated she had soreness in the site of the procedure, mild nausea Objective Vitals Vital Signs Date Time Temp Pulse Resp B/P (MAP) Pulse Ox O2 Delivery O2 Flow Rate FiO2 11/20/17 18:00 91 11/20/17 16:00 84 11/20/17 16:00 98.8 84 18 156/67 (96) 97 11/20/17 14:00 86 11/20/17 12:00 72 11/20/17 12:00 98.7 72 18 173/75 (107) 97 11/20/17 11:52 22 11/20/17 10:00 79 11/20/17 08:00 99.0 68 16 172/72 (105) 97 11/20/17 08:00 79 11/20/17 04:00 98.3 77 14 200/84 (122) 94 11/20/17 00:00 98.2 82 21 187/77 (113) 98 11/19/17 20:00 98.0 78 13 163/71 (101) 95 I/O 11/19/17 11/19/17 11/19/17 11/20/17 11/20/17 11/20/17 07:00 15:00 23:00 07:00 15:00 23:00 Intake Total 200 ml 1200 ml 880 ml Output Total 1400 ml 1450 ml 1050 ml Balance -1200 ml -250 ml -170 ml Intake Oral 200 ml 50 ml 480 ml IV Total 1150 ml 400 ml Output Urine Total 1400 ml 1450 ml 1000 ml Stool Total 0 ml 0 ml Drainage Total 50 ml # Bowel Movements 0 0 Result Diagram: 11/19/17 0315 11/20/17 1542 Objective Remarks GENERAL: This is a jaundiced 62 years old female SKIN: Jaundice HEAD: Atraumatic. Normocephalic. EYES: Icterus sclera ENT: Nose without bleeding, or drainage, Airway patent. NECK: Trachea midline. Supple CARDIOVASCULAR: Regular rate and rhythm without murmurs, gallops, or rubs. RESPIRATORY: Fair air entry bilaterally. No wheezes, rales, or rhonchi. GASTROINTESTINAL: Abdomen soft, non-tender, nondistended. Positive bowel sounds MUSCULOSKELETAL: Extremities without clubbing, cyanosis, or edema. Pedal pulses appreciated NEUROLOGICAL: Awake and alert. Moves all extremity. Normal speech.no focal neurological deficit A/P Assessment and Plan 62-year-old female with: New onset Diabetes mellitus DKA which is now resolved Cystic lesion and pancreatic head with common hepatic duct obstruction/ obstructive jaundice Elevated LFTs Cholelithiasis Hypertension Plan: 11/20: Appreciate surgery consultation recommended CT abdomen with pancreatic protocol, and pancreatic mass workup with biopsy and EUS, GI following Status post ERCP 11/19, Resume clear liquid diet Dilaudid when necessary for pain, Percocet when necessary for pain Supplemental O2 as needed. Bronchodilators when necessary IV hydration. Appreciate GI consultation status post ERCP for biliary tract obstruction from possible cystic lesion and pancreatic head. Surgery following Sliding scale insulin for glycemic control. Add Levemir 10 units subcutaneously daily as patient presented with DKA to outside hospital. Strict intake output, monitor and replete elect lites, follow BUN creatinine. Follow CBC and coags. GI prophylaxis with Pepcid, DVT prophylaxis with SCDs. Resume subcutaneous Lovenox when okay with GI. Further recommendations per GI. Corrine Montano MD Nov 20, 2017 19:25
[2017-11-21] VITALS: BP 160/70; PULSE 74; RESP 14; TEMP 98.4; O2SAT 98
[2017-11-21] MEDS: HYDROmorphone HCL PF 2 MG/ML VIAL IV PRN ×4 (02:15→22:32)
[2017-11-21] MEDS: oxyCODONE/ACETAMINOPHEN 5 MG/325 MG TAB PO PRN ×2 (02:18→23:45)
[2017-11-21] MEDS: ONDANSETRON HCL 4 MG/2 ML VIAL IV PUSH PRN ×4 (02:19→22:33)
[2017-11-21 04:00] VITALS: BP 162/69; PULSE 81; RESP 21; TEMP 98.7; O2SAT 97
[2017-11-21] MEDS: CHLORHEXIDINE GLUCONATE 2 % 1 PACK (2 CLOTHS) TOP SCH (04:00)
[2017-11-21] MEDS: INSULIN ASPART SUPPLEMENTAL SCALE SQ SCH ×4 (06:19→23:56)
[2017-11-21 06:23] LABS: ALBUMIN 2.4 GM/DL (3.4-5.0); ALT (GPT) 773 U/L (10-53); AST (GOT) 152 U/L (15-37); BICARBONATE 26.6 MEQ/L (21.0-32.0); BLOOD UREA NITROGEN 5 MG/DL (7-18); CALCIUM 8.8 MG/DL (8.5-10.1); CHLORIDE 98 MEQ/L (98-107); CREATININE 0.49 MG/DL (0.50-1.00); GLOMERULAR FILTRATION RATE 129 ML/MIN (>89); GLUCOSE,RANDOM 223 MG/DL (74-106); SODIUM (NA) 133 MEQ/L (136-145)
[2017-11-21] MEDS: SENNOSIDES 8.6 MG TAB PO PRN ×2 (06:26→22:33)
[2017-11-21] MEDS: MAGNESIUM HYDROXIDE SUSP 30 ML CUP PO PRN (06:26)
[2017-11-21 06:37] LABS: ALKALINE PHOSPHATASE 1006 U/L (45-117); TOTAL BILIRUBIN ADULT 4.5 MG/DL (0.2-1.0); TOTAL PROTEIN 5.9 GM/DL (6.4-8.2)
[2017-11-21 08:00] VITALS: BP 182/79; PULSE 84; PULSE 97; RESP 26; TEMP 99; O2SAT 98
[2017-11-21] MEDS: FAMOTIDINE 20 MG/2 ML VIAL IV PUSH SCH ×2 (09:32→20:23)
[2017-11-21] MEDS: METOPROLOL TARTRATE 25 MG TAB PO SCH ×2 (09:32→20:24)
[2017-11-21] MEDS: INSULIN DETEMIR 100 UNITS/ML VIAL SQ SCH ×2 (09:45→20:24)
[2017-11-21] MEDS: SODIUM CHLORIDE 0.9% FLUSH 10 ML FLUSH IV FLUSH SCH ×2 (10:26→20:23)
[2017-11-21] MEDS: D5-1/2 NS + KCL 20 MEQ INJ 1,000 ML IV SCH ×2 (10:57→21:29)
[2017-11-21] MEDS: POTASSIUM CHLOR 20 MEQ PREMIX 100 ML IV PRN ×2 (11:32→13:16)
[2017-11-21 12:00] VITALS: BP 172/74; PULSE 84; RESP 13; TEMP 101.9; O2SAT 98
--- NOTE | 2017-11-21 13:17 | HHI.GIFU ---
Subjective Remarks Pt resting in bed Reports continued abdominal pain, eased some after BM (+) BM today after multiple days of constipation Denies nausea, vomiting Tolerating clear liquids (Kim Rodriguez) Objective Vitals I&O Vital Signs Date Time Temp Pulse Resp B/P (MAP) Pulse Ox O2 Delivery O2 Flow Rate FiO2 11/21/17 11:29 18 11/21/17 04:00 81 11/21/17 04:00 98.7 81 21 162/69 (100) 97 11/21/17 00:00 74 11/21/17 00:00 98.4 74 14 160/70 (100) 98 11/20/17 20:00 79 11/20/17 20:00 98.0 79 15 174/78 (110) 11/20/17 18:00 91 11/20/17 16:00 84 11/20/17 16:00 98.8 84 18 156/67 (96) 97 11/20/17 14:00 86 I/O 11/20/17 11/20/17 11/20/17 11/21/17 11/21/17 11/21/17 07:00 15:00 23:00 07:00 15:00 23:00 Intake Total 880 ml 2115 ml 1654 ml Output Total 1050 ml 1950 ml 2150 ml Balance -170 ml 165 ml -496 ml Intake Oral 480 ml 800 ml 600 ml IV Total 400 ml 1315 ml 1054 ml Output Urine Total 1000 ml 1600 ml 1900 ml Drainage Total 50 ml 350 ml 250 ml # Bowel Movements 0 0 Laboratory Laboratory Tests Test 11/20/17 15:42 11/21/17 03:40 Blood Urea Nitrogen 7 5 Creatinine 0.53 0.49 Random Glucose 250 223 Total Protein 6.2 5.9 Albumin 2.5 2.4 Calcium Level 8.4 8.8 Alkaline Phosphatase 1185 1006 Aspartate Amino Transf (AST/SGOT) 319 152 Alanine Aminotransferase (ALT/SGPT) 1008 773 Total Bilirubin 6.5 4.5 Sodium Level 131 133 Potassium Level 3.6 3.4 Chloride Level 99 98 Carbon Dioxide Level 23.7 26.6 Anion Gap 8 8 Estimat Glomerular Filtration Rate 118 129 Imaging Last Impressions Bile Duct Drainage 11/19/17 0000 Signed Impressions: Service Date/Time: Sunday, November 19, 2017 08:38 - CONCLUSION: 1. Large filling defect/mass at the confluence of the hepatic ducts extending to the very central common bile duct. This has a typical Klatskin tumor appearance. 2. Uncomplicated transhepatic percutaneous drainage catheter placement. An 8 Sami internal/external drain was placed. Ameya Valdez MD Liver Ultrasound 11/18/17 0000 Signed Impressions: Service Date/Time: Saturday, November 18, 2017 09:04 - CONCLUSION: 1. Extensive shadowing in the gallbladder fossa probably related to multiple gallstones. 2. Enlarged, fatty liver. 3. Probable sludge in common bile duct. Philip Mcgowan MD Chest X-Ray 11/18/17 0000 Signed Impressions: Service Date/Time: Saturday, November 18, 2017 08:35 - CONCLUSION: 1. Left lung base airspace disease, presumably atelectasis. Developing pneumonia cannot be excluded in the appropriate clinical setting. Ameya Valdez MD Physical Exam HEENT: Normocephalic; atraumatic; +icterus CHEST: Even/unlabored CARDIAC: RRR ABDOMEN: Distended, semi-firm, tender, bowel sounds active EXTREMITIES: No clubbing, cyanosis, or edema. SKIN: (+) jaundice. DOCTOR OF NURSING PRACTICE: No focal deficits; alert and oriented times three. (Kim Rodriguez [facility]) Assessment and Plan Plan ASSESSMENT - abd pain, jaundice, elevated LFTs - LFTs elevated obstructive pattern, upper quadrant pain, nausea. choledocholithiasis vs cystic obstruction CBD CT 11/15 showed cholelithiasis, poss cyst pancreatic head, MRCP 11/16 showed cystic mass, HIDA 11/17 suggestive CBD obstruction. WBC is WNL - ?ascites - abd soft and distended. liver US is pending. 11/19/17 liver US showed prob sludge CBD, prob gallstones, fatty liver. Not much change LFTs. s/p unsuccessful ERCP - ampulla distorted with ulcer and scarring. 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 CA 19-9 elevated 165. GS consult pending. pt noncontributory today. (11/21) Pt reports continued abdominal pain and distention, some relief with BM today after multiple days of no BM. GS also recommending EUS with biopsy as well as CT scan pancreatic protocol. LFTs continue to trend down today. PLAN - EUS tomorrow- D/W Dr. Farrell - Obtain consent - NPO after MN - Clear liquids today - Monitor LFTs - CT abdomen with pancreatic protocol - Biliary drain - Further recommendations to follow based on results of above Pt has been seen and examined by myself and Dr. Hickey and this note is written on his behalf (Kim Rodriguez) Physician Comments As above for EUS in AM. Further recommendations to follow. (Luther Hickey MD) Kim Rodriguez Nov 21, 2017 13:17 Luther Hickey MD Nov 21, 2017 14:42
--- NOTE | 2017-11-21 14:46 | HHI.PR ---
cc: Elijah Jackson MD Subjective Subjective Notes Resting in bed Tolerating clears Objective Vitals/I&O Vital Signs Date Time Temp Pulse Resp B/P (MAP) Pulse Ox O2 Delivery O2 Flow Rate FiO2 11/21/17 12:00 84 11/21/17 12:00 101.9 13 172/74 (106) 98 11/19/17 11:32 Nasal Cannula 3 Labs Laboratory Tests Test 11/20/17 15:42 11/21/17 03:40 Blood Urea Nitrogen 7 5 Creatinine 0.53 0.49 Random Glucose 250 223 Total Protein 6.2 5.9 Albumin 2.5 2.4 Calcium Level 8.4 8.8 Alkaline Phosphatase 1185 1006 Aspartate Amino Transf (AST/SGOT) 319 152 Alanine Aminotransferase (ALT/SGPT) 1008 773 Total Bilirubin 6.5 4.5 Sodium Level 131 133 Potassium Level 3.6 3.4 Chloride Level 99 98 Carbon Dioxide Level 23.7 26.6 Anion Gap 8 8 Estimat Glomerular Filtration Rate 118 129 Cardiovascular: Regular Lungs: Clear Abdomen: Non-tender, Other (drain in place ) Extremities: No edema A/P Assessment and Plan 62 year old female with elevated LFTs; possible Klatskin tumor -EUS planned for tomorrow -Clear liquids; advance as tolerated -Continue to monitor LFTs -Will follow results of EUS-- may benefit from dx lap next week and racheal barahona Attending Statement The exam, history, and the medical decision-making described in the above note were completed with the assistance of the mid-level provider. I reviewed and agree with the findings presented. I attest that I had a [id number] encounter with the patient on the same day, and personally performed and documented my assessment and findings in the medical record. patient feels better today abdominal exam stable, non-tender biliary drain function ok will need EUS for likely pancreatic mass Chelly Burks SENIOR GAME DESIGNER/Computer Science Instructor SENIOR GAME DESIGNER Nov 21, 2017 14:46 Elijah Jackson MD Nov 25, 2017 23:05
[2017-11-21 15:53] LABS: MITOCHONDRIAL ABS LESS THAN 20.0 U (<=20.0)
[2017-11-21 16:00] VITALS: BP 173/71; PULSE 91; RESP 19; TEMP 101.4; O2SAT 99
--- NOTE | 2017-11-21 16:34 | HHI.PR ---
Subjective Remarks Patient stated she had a bowel movement finally today She is sore in her right abdomen still Per the nurse she had a temperature of 101, we cannot give Tylenol you to the liver failure, patient today other NSAID Clinical for EUS tomorrow by GI, surgery following for possible ex lap next week Objective Vitals Vital Signs Date Time Temp Pulse Resp B/P (MAP) Pulse Ox O2 Delivery O2 Flow Rate FiO2 11/21/17 12:00 84 11/21/17 12:00 101.9 84 13 172/74 (106) 98 11/21/17 11:29 18 11/21/17 08:00 84 11/21/17 08:00 99.0 97 26 182/79 (113) 98 11/21/17 04:00 81 11/21/17 04:00 98.7 81 21 162/69 (100) 97 11/21/17 00:00 74 11/21/17 00:00 98.4 74 14 160/70 (100) 98 11/20/17 20:00 79 11/20/17 20:00 98.0 79 15 174/78 (110) 11/20/17 18:00 91 I/O 11/20/17 11/20/17 11/20/17 11/21/17 11/21/17 11/21/17 07:00 15:00 23:00 07:00 15:00 23:00 Intake Total 880 ml 2115 ml 1654 ml Output Total 1050 ml 1950 ml 2150 ml Balance -170 ml 165 ml -496 ml Intake Oral 480 ml 800 ml 600 ml IV Total 400 ml 1315 ml 1054 ml Output Urine Total 1000 ml 1600 ml 1900 ml Drainage Total 50 ml 350 ml 250 ml # Bowel Movements 0 0 Result Diagram: 11/19/17 0315 11/21/17 0340 Objective Remarks GENERAL: This is a well-nourished, well-developed patient, in no apparent distress. SKIN: Jaundice Eyes: Icterus sclera CARDIOVASCULAR: Regular rate and rhythm without murmurs, gallops, or rubs. RESPIRATORY: Fair air entry bilaterally. No wheezes, rales, or rhonchi. GASTROINTESTINAL: Abdomen soft, tender to palpation on the right, nondistended. Positive bowel sounds MUSCULOSKELETAL: Extremities without clubbing, cyanosis, or edema. Pedal pulses appreciated NEUROLOGICAL: Awake and alert. Moves all extremity. Normal speech.no focal neurological deficit A/P Assessment and Plan 62-year-old female with: New onset Diabetes mellitus DKA which is now resolved Cystic lesion and pancreatic head with common hepatic duct obstruction/ obstructive jaundice Elevated LFTs Cholelithiasis Hypertension Plan: 11/21: Fever with 101, unable to Tylenol due to liver failure, recommended Motrin , appreciate GI and GS follow-up, plan for CT abdomen with pancreatic protocol, EUS and possible biopsy tomorrow by GI, PS may go for ex lap Status post ERCP 11/19, Resume clear liquid diet Dilaudid when necessary for pain, Percocet when necessary for pain Supplemental O2 as needed. Bronchodilators when necessary IV hydration. Appreciate GI consultation status post ERCP for biliary tract obstruction from possible cystic lesion and pancreatic head. Surgery following Sliding scale insulin for glycemic control. Add Levemir 10 units subcutaneously daily as patient presented with DKA to outside hospital. Strict intake output, monitor and replete elect lites, follow BUN creatinine. Follow CBC and coags. GI prophylaxis with Pepcid, DVT prophylaxis with SCDs. Resume subcutaneous Lovenox when okay with GI. Further recommendations per GI. Discharge Planning Not ready for discharge Corrine Montano MD Nov 21, 2017 16:34
[2017-11-21] MEDS: IBUPROFEN 400 MG TAB PO PRN (18:15)
[2017-11-21 20:00] VITALS: BP 112/51; PULSE 78; RESP 12; TEMP 98.4; O2SAT 96
[2017-11-22] VITALS (7 sets, daily range): BP systolic 113–170; BP diastolic 58–71; PULSE 66–90; RESP 14–44; TEMP 98.6–101; O2SAT 90–98
[2017-11-22] MEDS: HYDROmorphone HCL PF 2 MG/ML VIAL IV PRN ×5 (03:51→23:46)
[2017-11-22] MEDS: ONDANSETRON HCL 4 MG/2 ML VIAL IV PUSH PRN ×5 (03:52→23:50)
[2017-11-22] MEDS: CHLORHEXIDINE GLUCONATE 2 % 1 PACK (2 CLOTHS) TOP SCH (04:00)
[2017-11-22] MEDS: D5-1/2 NS + KCL 20 MEQ INJ 1,000 ML IV SCH ×2 (04:28→18:09)
[2017-11-22] MEDS: INSULIN ASPART SUPPLEMENTAL SCALE SQ SCH ×3 (06:00→18:00)
[2017-11-22] MEDS: INSULIN DETEMIR 100 UNITS/ML VIAL SQ SCH ×2 (09:00→20:19)
[2017-11-22] MEDS: SODIUM CHLORIDE 0.9% FLUSH 10 ML FLUSH IV FLUSH SCH ×2 (09:53→20:19)
[2017-11-22] MEDS: FAMOTIDINE 20 MG/2 ML VIAL IV PUSH SCH ×2 (09:53→20:25)
[2017-11-22] MEDS: METOPROLOL TARTRATE 25 MG TAB PO SCH ×2 (09:53→20:19)
[2017-11-22] MEDS: IBUPROFEN 400 MG TAB PO PRN (10:10)
--- NOTE | 2017-11-22 10:39 | HHI.PR ---
Subjective Remarks laying in bed she asked to inc the freq of the dilaudid and zofran Objective Vitals Vital Signs Date Time Temp Pulse Resp B/P (MAP) Pulse Ox O2 Delivery O2 Flow Rate FiO2 11/22/17 04:00 81 11/22/17 04:00 98.7 81 14 156/69 (98) 91 11/22/17 00:00 83 11/22/17 00:00 98.9 83 44 136/61 (86) 96 11/21/17 20:00 78 11/21/17 20:00 98.4 78 12 112/51 (71) 96 11/21/17 17:06 14 11/21/17 16:00 101.4 91 19 173/71 (105) 99 11/21/17 16:00 91 11/21/17 12:00 84 11/21/17 12:00 101.9 84 13 172/74 (106) 98 I/O 11/21/17 11/21/17 11/21/17 11/22/17 11/22/17 11/22/17 07:00 15:00 23:00 07:00 15:00 23:00 Intake Total 1654 ml 100 ml 1286 ml 1016 ml Output Total 2150 ml 1200 ml 1800 ml Balance -496 ml 100 ml 86 ml -784 ml Intake Oral 600 ml 540 ml 480 ml IV Total 1054 ml 100 ml 746 ml 536 ml Output Urine Total 1900 ml 1100 ml 1800 ml Drainage Total 250 ml 100 ml # Bowel Movements 0 1 0 Result Diagram: 11/19/17 0315 11/21/17 0340 Objective Remarks GENERAL: This is a well-nourished, well-developed patient, in no apparent distress. SKIN: Jaundice Eyes: Icterus sclera CARDIOVASCULAR: Regular rate and rhythm without murmurs, gallops, or rubs. RESPIRATORY: Fair air entry bilaterally. No wheezes, rales, or rhonchi. GASTROINTESTINAL: Abdomen soft, tender to palpation on the right, nondistended. Positive bowel sounds MUSCULOSKELETAL: Extremities without clubbing, cyanosis, or edema. Pedal pulses appreciated NEUROLOGICAL: Awake and alert. Moves all extremity. Normal speech.no focal neurological deficit A/P Assessment and Plan 62-year-old female with: New onset Diabetes mellitus DKA which is now resolved Cystic lesion and pancreatic head with common hepatic duct obstruction/ obstructive jaundice Elevated LFTs Cholelithiasis Hypertension Plan: 11/21: Fever with 101, unable to Tylenol due to liver failure, recommended Motrin , appreciate GI and GS follow-up, plan for CT abdomen with pancreatic protocol, EUS and possible biopsy tomorrow by GI, PS may go for ex lap 11/22: still running fever , going for EUS per GI, cont monitoring CMP Status post ERCP 11/19, Resume clear liquid diet Dilaudid when necessary for pain, Percocet when necessary for pain Supplemental O2 as needed. Bronchodilators when necessary IV hydration. Appreciate GI consultation status post ERCP for biliary tract obstruction from possible cystic lesion and pancreatic head. Surgery following Sliding scale insulin for glycemic control. Add Levemir 10 units subcutaneously daily as patient presented with DKA to outside hospital. Strict intake output, monitor and replete elect lites, follow BUN creatinine. Follow CBC and coags. GI prophylaxis with Pepcid, DVT prophylaxis with SCDs. Resume subcutaneous Lovenox when okay with GI. Further recommendations per GI. Discharge Planning Not ready for discharge Corrine Montano MD Nov 22, 2017 10:39
[2017-11-22] MEDS ORDERED: ePHEDrine/NS 25 MG/5 ML SYRINGE IV ONE (12:00)
[2017-11-22] MEDS ORDERED: LACTATED RINGER'S 1000 ML INJ 1,000 ML IV ONE (12:00)
[2017-11-22] MEDS ORDERED: SUCCINYLCHOLINE CHLORIDE 100 MG/5 ML SYRINGE IV PUSH ONE (12:00)
[2017-11-22] MEDS ORDERED: DEXAMETHASONE SOD PHOS 4 MG/ML VIAL IV ONE (12:00)
[2017-11-22] MEDS ORDERED: LIDOCAINE HCL 1% PF 5 ML SYRINGE OTHER ONE (12:00)
[2017-11-22] MEDS ORDERED: PROPOFOL 200 MG/20 ML AMP IV ONE (12:00)
[2017-11-22] MEDS ORDERED: ONDANSETRON HCL 4 MG/2 ML VIAL IV ONE (12:00)
[2017-11-22 12:02] LABS: ALBUMIN 2.1 GM/DL (3.4-5.0); AST (GOT) 55 U/L (15-37); BICARBONATE 24.9 MEQ/L (21.0-32.0); BLOOD UREA NITROGEN 4 MG/DL (7-18); CALCIUM 8.4 MG/DL (8.5-10.1); CHLORIDE 99 MEQ/L (98-107); CREATININE 0.48 MG/DL (0.50-1.00); GLOMERULAR FILTRATION RATE 132 ML/MIN (>89); GLUCOSE,RANDOM 209 MG/DL (74-106); SODIUM (NA) 133 MEQ/L (136-145)
[2017-11-22 12:03] LABS: ALT (GPT) 424 U/L (10-53)
[2017-11-22 12:05] LABS: ALKALINE PHOSPHATASE 704 U/L (45-117); TOTAL PROTEIN 5.6 GM/DL (6.4-8.2)
--- NOTE | 2017-11-22 13:57 | HHI.PR ---
cc: Elijah Jackson MD Subjective Subjective Notes "I'm not sure what time my procedure is going to be." Objective Vitals/I&O Vital Signs Date Time Temp Pulse Resp B/P (MAP) Pulse Ox O2 Delivery O2 Flow Rate FiO2 11/22/17 12:00 98.8 82 24 147/71 (96) 94 11/19/17 11:32 Nasal Cannula 3 Labs Laboratory Tests Test 11/22/17 11:24 Blood Urea Nitrogen 4 Creatinine 0.48 Random Glucose 209 Total Protein 5.6 Albumin 2.1 Calcium Level 8.4 Alkaline Phosphatase 704 Aspartate Amino Transf (AST/SGOT) 55 Alanine Aminotransferase (ALT/SGPT) 424 Total Bilirubin 3.0 Sodium Level 133 Potassium Level 3.5 Chloride Level 99 Carbon Dioxide Level 24.9 Anion Gap 9 Estimat Glomerular Filtration Rate 132 Cardiovascular: Regular Lungs: Clear Abdomen: Non-tender, Other (biliary drain in place ) Extremities: No edema A/P Assessment and Plan 62 year old female with elevated LFTs; 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 I reviewed and agree with the findings presented. I attest that I had a [id number] encounter with the patient on the same day, and personally performed and documented my assessment and findings in the medical record. pancreatic mass, for EUS today will follow up Bx results ideally would have internalized metal stent placed by Chelly Reyes/[facility] Carpenter RODERICK Nov 22, 2017 13:57 Elijah Jackson MD Nov 25, 2017 23:09
[2017-11-22] MEDS ORDERED: DO NOT ADM ANY ANTICOAGULANT DRUGS PRN (17:27)
--- NOTE | 2017-11-22 17:38 | PD.PROCEDR ---
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 Terrell and informed consent was obtained. Anesthesia sedated her with Diprivan. She was placed in the left lateral decubitus position. Endoscopic ultrasound: The Pentax videoscope was introduced through the oropharynx and advanced to the second portion of the duodenum. FINDINGS: The pancreas appeared to be unremarkable from head to tail with a normal pancreatic duct There was a proximal common bile duct hypoechogenicity measuring less than 2 cm possibly representing a tumor through which the biliary stent was noted 3 passes with the 22-gauge needle were done with good results No vascular invasion noted No lymphadenopathy Gallbladder filled with stones was seen ESTIMATED BLOOD LOSS: Minimal SPECIMENS REMOVED: Fine-needle aspiration of the bile duct mass COMPLICATIONS: None IMPRESSION: Probable biliary mass possibly pancreatic Gallstones PLAN: Continue with current supportive care Monitor labs Await pathology Victor Manuel Farrell MD Nov 22, 2017 17:38
[2017-11-22] MEDS: SENNOSIDES 8.6 MG TAB PO PRN (20:25)
[2017-11-22] MEDS ORDERED: IOHEXOL 350 MG/ML 10 ML VIAL (for RAD DIAG) IVCONTRAST ONE (21:21)
--- NOTE | 2017-11-22 23:35 | RADRPT ---
EXAM DATE/TIME: 11/22/2017 21:21 [facility] COMPARISON: No previous studies available for comparison. INDICATIONS : Klatskins tumor. IV CONTRAST: 100 cc Omnipaque 350 (iohexol) IV ORAL CONTRAST: No oral contrast ingested. RADIATION DOSE: 16.49 CTDIvol (mGy) MEDICAL HISTORY : Diabetes mellitus type 1. jaundice SURGICAL HISTORY : Hysterectomy. ENCOUNTER: Initial ACUITY: 1 day PAIN SCALE: 6/10 LOCATION: mid abdomen TECHNIQUE: Volumetric scanning of the abdomen was performed. Using automated exposure control and adjustment of the mA and/or kV according to patient size, radiation dose was kept as low as reasonably achievable to obtain optimal diagnostic quality images. DICOM format image data is available electronically for review and comparison. FINDINGS: Patient has internal/external biliary catheters that appear appropriately positioned. No focal mass i s seen of the liver. Sludge, numerous stones and some apparent contrast seen in the gallbladder lumen . The gallbladder is borderline mildly distended. A dominant stone in the gallbladder measures 3 cm. Otherwise, most of the stones are between 3 and 8 mm in size. No perceptible duct stone. No common bi le duct distention. The intrahepatic ducts appear slightly prominent. Questionable vague low attenuation lesion in the pancreaticoduodenal groove region, roughly 1.4 x 2.9 cm in greatest transaxial dimension series 2 image 31 and 2.6 cm craniocaudal, 3601 image 25. This i s mostly anterior to the common bile duct; mild mass effect on the duct/biliary drainage catheter. No mass seen within the pancreas. The ampullary region is grossly unremarkable. The Smaller moderate right and small left pleural effusions are seen of the visualized lung bases and wit h associated dependent/compressive atelectasis. No lymphadenopathy. Trace perihepatic ascites, mostly lateral. CONCLUSION: 1. No perceptible liver mass but there is a questionable elongated low density lesion of the pancreat icoduodenal groove. 2. Internal/external biliary drainage catheters appear appropriately positioned. No extrahepatic very distention. Intrahepatic ducts appear mildly prominent. 3. Cholelithiasis. No perceptible duct stone. 4. No lymphadenopathy or other evidence of metastatic disease in the abdomen. 5. Nonspecific pleural effusions and dependent/compressive atelectasis of the visualized lung bases, right slightly worse than left. Lionel Campoverde MD on November 22, 2017 at 23:25 Board Certified Radiologist. This report was verified electronically.
[2017-11-22 23:51] LABS: CERULOPLASMIN 53 mg/dL (18-53)
[2017-11-23] VITALS (28 sets, daily range): BP systolic 117–170; BP diastolic 70–95; PULSE 66–92; RESP 16–20; TEMP 98.3–99; O2SAT 88–99
[2017-11-23] MEDS: D5-1/2 NS + KCL 20 MEQ INJ 1,000 ML IV SCH ×3 (04:26→23:29)
[2017-11-23] MEDS: ONDANSETRON HCL 4 MG/2 ML VIAL IV PUSH PRN ×5 (04:26→21:59)
[2017-11-23] MEDS: HYDROmorphone HCL PF 2 MG/ML VIAL IV PRN ×5 (04:28→22:02)
[2017-11-23 05:18] LABS: ALBUMIN 2.1 GM/DL (3.4-5.0); ALT (GPT) 368 U/L (10-53); AST (GOT) 42 U/L (15-37); BICARBONATE 25.2 MEQ/L (21.0-32.0); BLOOD UREA NITROGEN 5 MG/DL (7-18); CALCIUM 8.4 MG/DL (8.5-10.1); CHLORIDE 98 MEQ/L (98-107); CREATININE 0.51 MG/DL (0.50-1.00); GLOMERULAR FILTRATION RATE 123 ML/MIN (>89); GLUCOSE,RANDOM 234 MG/DL (74-106); SODIUM (NA) 133 MEQ/L (136-145)
[2017-11-23 05:20] LABS: ALKALINE PHOSPHATASE 627 U/L (45-117); TOTAL BILIRUBIN ADULT 3.9 MG/DL (0.2-1.0); TOTAL PROTEIN 6.1 GM/DL (6.4-8.2)
[2017-11-23] MEDS: FAMOTIDINE 20 MG/2 ML VIAL IV PUSH SCH ×2 (08:47→20:59)
[2017-11-23] MEDS: SODIUM CHLORIDE 0.9% FLUSH 10 ML FLUSH IV FLUSH SCH ×2 (08:47→20:59)
[2017-11-23] MEDS: METOPROLOL TARTRATE 25 MG TAB PO SCH ×2 (09:14→20:58)
[2017-11-23] MEDS: INSULIN ASPART SUPPLEMENTAL SCALE SQ SCH ×4 (09:20→17:51)
[2017-11-23] MEDS: INSULIN DETEMIR 100 UNITS/ML VIAL SQ SCH ×2 (09:20→20:59)
--- NOTE | 2017-11-23 11:14 | HHI.GIFU ---
Subjective Remarks Patient borderline tearful Complains of increased abdominal pressure radiating to the left and right side Biliary drain right side appears to be draining dark bilious fluid Temperature 99. Continues with uncontrolled nausea (Alexandria Marcos) Objective Vitals I&O Vital Signs Date Time Temp Pulse Resp B/P (MAP) Pulse Ox O2 Delivery O2 Flow Rate FiO2 11/23/17 06:00 74 11/23/17 05:00 76 11/23/17 04:00 80 11/23/17 04:00 99.0 80 20 165/75 (105) 88 11/23/17 03:00 76 11/23/17 02:00 78 11/23/17 01:00 76 11/23/17 00:00 98.6 78 20 117/84 (95) 96 11/23/17 00:00 76 11/22/17 23:00 76 11/22/17 20:00 75 11/22/17 20:00 98.6 75 16 159/68 (98) 98 11/22/17 19:42 16 11/22/17 17:55 72 16 95 Nasal Cannula 2 11/22/17 17:45 97.6 70 16 154/74 (100) 95 Nasal Cannula 2 11/22/17 17:30 77 15 144/70 (94) 96 Nasal Cannula 3 11/22/17 17:25 98.1 79 18 141/65 (90) 96 Nasal Cannula 3 11/22/17 15:58 100 Nasal Cannula 3 11/22/17 15:58 98.1 67 16 133/61 (85) 100 11/22/17 15:00 66 16 113/58 (76) 97 11/22/17 12:00 98.8 82 24 147/71 (96) 94 11/22/17 12:00 82 I/O 11/22/17 11/22/17 11/22/17 11/23/17 11/23/17 11/23/17 07:00 15:00 23:00 07:00 15:00 23:00 Intake Total 1016 ml 1000 ml 40 ml Output Total 1800 ml 1550 ml Balance -784 ml -550 ml 40 ml Intake Oral 480 ml 40 ml IV Total 536 ml Other 1000 ml Output Urine Total 1800 ml 1400 ml Drainage Total 150 ml # Voids 2 # Bowel Movements 0 0 Laboratory Laboratory Tests Test 11/22/17 11:24 11/23/17 03:45 Blood Urea Nitrogen 4 5 Creatinine 0.48 0.51 Random Glucose 209 234 Total Protein 5.6 6.1 Albumin 2.1 2.1 Calcium Level 8.4 8.4 Alkaline Phosphatase 704 627 Aspartate Amino Transf (AST/SGOT) 55 42 Alanine Aminotransferase (ALT/SGPT) 424 368 Total Bilirubin 3.0 3.9 Sodium Level 133 133 Potassium Level 3.5 3.8 Chloride Level 99 98 Carbon Dioxide Level 24.9 25.2 Anion Gap 9 10 Estimat Glomerular Filtration Rate 132 123 Imaging Last Impressions Abdomen CT 11/21/17 0000 Signed Impressions: Service Date/Time: Wednesday, November 22, 2017 21:21 - CONCLUSION: 1. No perceptible liver mass but there is a questionable elongated low density lesion of the pancreaticoduodenal groove. 2. Internal/external biliary drainage catheters appear appropriately positioned. No extrahepatic very distention. Intrahepatic ducts appear mildly prominent. 3. Cholelithiasis. No perceptible duct stone. 4. No lymphadenopathy or other evidence of metastatic disease in the abdomen. 5. Nonspecific pleural effusions and dependent/compressive atelectasis of the visualized lung bases, right slightly worse than left. Lionel Campoverde MD Bile Duct Drainage 11/19/17 0000 Signed Impressions: Service Date/Time: Sunday, November 19, 2017 08:38 - CONCLUSION: 1. Large filling defect/mass at the confluence of the hepatic ducts extending to the very central common bile duct. This has a typical Klatskin tumor appearance. 2. Uncomplicated transhepatic percutaneous drainage catheter placement. An 8 Belarusian internal/external drain was placed. Ameya Valdez MD Liver Ultrasound 11/18/17 0000 Signed Impressions: Service Date/Time: Saturday, November 18, 2017 09:04 - CONCLUSION: 1. Extensive shadowing in the gallbladder fossa probably related to multiple gallstones. 2. Enlarged, fatty liver. 3. Probable sludge in common bile duct. Philip Mcgowan MD Chest X-Ray 11/18/17 0000 Signed Impressions: Service Date/Time: Saturday, November 18, 2017 08:35 - CONCLUSION: 1. Left lung base airspace disease, presumably atelectasis. Developing pneumonia cannot be excluded in the appropriate clinical setting. Ameya Valdez MD Physical Exam HEENT: Normocephalic; atraumatic; +icterus CHEST: Even/unlabored CARDIAC: RRR ABDOMEN: Distended, semi-firm, tender, bowel sounds active , increased pressure upper abdomen radiating into the left and right side EXTREMITIES: No clubbing, cyanosis, or edema. SKIN: (+) jaundice. 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 choledocholithiasis vs cystic obstruction CBD CT 11/15 showed cholelithiasis, poss cyst pancreatic head, MRCP 11/16 showed cystic mass, HIDA 11/17 suggestive CBD obstruction. WBC is WNL - ?ascites - abd soft and distended. liver US is pending. 11/19/17 liver US showed prob sludge CBD, prob gallstones, fatty liver. Not much change LFTs. s/p unsuccessful ERCP - ampulla distorted with ulcer and scarring. 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 CA 19-9 elevated 165. GS consult pending. pt noncontributory today. (11/21) Pt reports continued abdominal pain and distention, some relief with BM today after multiple days of no BM. GS also recommending EUS with biopsy as well as CT scan pancreatic protocol. LFTs continue to trend down today. 11/23/17, appears to be having a bad morning increased upper abdominal pressure radiating into the left and right side. Feels pain management is ineffective. Labs mildly improved with bilirubin 3.9, AST 42, ALT 368, alkaline phosphatase 627. Nausea uncontrolled Continues to have drainage from right sided biliary tube, EUS done on 11/22/[address] Farrell, Probable biliary mass possibly pancreatic, biopsies are pending, gallstones PLAN - Biopsies pending, await results - Appreciate general surgery input, treatment and surgical procedures depend on symptoms as well as biopsy - Nothing by mouth except sips of water/ice - Monitor LFTs and other labs - Pain management per attending's - Added Phenergan for nausea - Biliary drain, monitor for continued drainage - Further recommendations to follow based on results of above Pt has been seen and examined by myself and Dr. Hickey and this note is written on his behalf (Alexandria Marcos) Physician Comments As above, seen and examined, plan as above, will advance diet and follow up clinically. Further recommendations to follow. (Luther Hickey MD) Alexandria Marcos Nov 23, 2017 11:14 Luther Hickey MD Nov 23, 2017 12:40
[2017-11-23] MEDS ORDERED: PROMETHAZINE INJ 25 MG/ML VIAL IM PRN (11:30)
--- NOTE | 2017-11-23 12:19 | HHI.PR ---
Subjective Remarks Follow-up Klatskin tumor/cholelithiasis/new onset diabete 11/23/17-patient seen and examined early nothing by mouth and complaint of nausea. Also complains of poorly controlled pain and requesting her narcotics to be adjusted. EUS done yesterday 11/22/17 Objective Vitals Vital Signs Date Time Temp Pulse Resp B/P (MAP) Pulse Ox O2 Delivery O2 Flow Rate FiO2 11/23/17 11:39 98.3 82 20 142/81 (101) 97 11/23/17 06:00 74 11/23/17 05:00 76 11/23/17 04:00 80 11/23/17 04:00 99.0 80 20 165/75 (105) 88 11/23/17 03:00 76 11/23/17 02:00 78 11/23/17 01:00 76 11/23/17 00:00 98.6 78 20 117/84 (95) 96 11/23/17 00:00 76 11/22/17 23:00 76 11/22/17 20:00 75 11/22/17 20:00 98.6 75 16 159/68 (98) 98 11/22/17 19:42 16 11/22/17 17:55 72 16 95 Nasal Cannula 2 11/22/17 17:45 97.6 70 16 154/74 (100) 95 Nasal Cannula 2 11/22/17 17:30 77 15 144/70 (94) 96 Nasal Cannula 3 11/22/17 17:25 98.1 79 18 141/65 (90) 96 Nasal Cannula 3 11/22/17 15:58 100 Nasal Cannula 3 11/22/17 15:58 98.1 67 16 133/61 (85) 100 11/22/17 15:00 66 16 113/58 (76) 97 I/O 11/22/17 11/22/17 11/22/17 11/23/17 11/23/17 11/23/17 07:00 15:00 23:00 07:00 15:00 23:00 Intake Total 1016 ml 1000 ml 40 ml Output Total 1800 ml 1550 ml Balance -784 ml -550 ml 40 ml Intake Oral 480 ml 40 ml IV Total 536 ml Other 1000 ml Output Urine Total 1800 ml 1400 ml Drainage Total 150 ml # Voids 2 # Bowel Movements 0 0 Result Diagram: 11/19/17 0315 11/23/17 0345 Imaging Last Impressions Abdomen CT 11/21/17 0000 Signed Impressions: Service Date/Time: Wednesday, November 22, 2017 21:21 - CONCLUSION: 1. No perceptible liver mass but there is a questionable elongated low density lesion of the pancreaticoduodenal groove. 2. Internal/external biliary drainage catheters appear appropriately positioned. No extrahepatic very distention. Intrahepatic ducts appear mildly prominent. 3. Cholelithiasis. No perceptible duct stone. 4. No lymphadenopathy or other evidence of metastatic disease in the abdomen. 5. Nonspecific pleural effusions and dependent/compressive atelectasis of the visualized lung bases, right slightly worse than left. Lionel Campoverde MD Bile Duct Drainage 11/19/17 0000 Signed Impressions: Service Date/Time: Sunday, November 19, 2017 08:38 - CONCLUSION: 1. Large filling defect/mass at the confluence of the hepatic ducts extending to the very central common bile duct. This has a typical Klatskin tumor appearance. 2. Uncomplicated transhepatic percutaneous drainage catheter placement. An 8 Guyanese internal/external drain was placed. Ameya Valdez MD Liver Ultrasound 11/18/17 0000 Signed Impressions: Service Date/Time: Saturday, November 18, 2017 09:04 - CONCLUSION: 1. Extensive shadowing in the gallbladder fossa probably related to multiple gallstones. 2. Enlarged, fatty liver. 3. Probable sludge in common bile duct. Philip Mcgowan MD Chest X-Ray 11/18/17 0000 Signed Impressions: Service Date/Time: Saturday, November 18, 2017 08:35 - CONCLUSION: 1. Left lung base airspace disease, presumably atelectasis. Developing pneumonia cannot be excluded in the appropriate clinical setting. Ameya Valdez MD Objective Remarks GENERAL: NAD SKIN: Warm and dry. HEAD: Normocephalic. EYES: No scleral icterus. No injection or drainage. NECK: Supple, trachea midline. No JVD or lymphadenopathy. CARDIOVASCULAR: Regular rate and rhythm without murmurs, gallops, or rubs. RESPIRATORY: Breath sounds equal bilaterally. No accessory muscle use. GASTROINTESTINAL: Abdomen soft, non-tender, nondistended. MUSCULOSKELETAL: No cyanosis, or edema. Biliary drain in place BACK: Nontender without obvious deformity. No CVA tenderness. 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
[2017-11-23] MEDS: SENNOSIDES 8.6 MG TAB PO PRN (19:35)
[2017-11-24] VITALS (20 sets, daily range): BP systolic 138–173; BP diastolic 65–89; PULSE 68–89; RESP 18; TEMP 98.8–99.7; O2SAT 93–98
[2017-11-24] MEDS: INSULIN ASPART SUPPLEMENTAL SCALE SQ SCH ×5 (00:40→22:46)
[2017-11-24] MEDS: D5-1/2 NS + KCL 20 MEQ INJ 1,000 ML IV SCH ×2 (00:41→17:13)
[2017-11-24] MEDS: ONDANSETRON HCL 4 MG/2 ML VIAL IV PUSH PRN ×5 (02:07→18:40)
[2017-11-24] MEDS: HYDROmorphone HCL PF 2 MG/ML VIAL IV PRN ×6 (02:11→21:00)
[2017-11-24] MEDS: CHLORHEXIDINE GLUCONATE 2 % 1 PACK (2 CLOTHS) TOP SCH (03:24)
[2017-11-24] MEDS: SODIUM CHLORIDE 0.9% FLUSH 10 ML FLUSH IV FLUSH SCH ×2 (10:09→21:26)
[2017-11-24] MEDS: FAMOTIDINE 20 MG/2 ML VIAL IV PUSH SCH ×2 (10:19→21:15)
[2017-11-24] MEDS: METOPROLOL TARTRATE 25 MG TAB PO SCH ×2 (10:19→21:19)
[2017-11-24] MEDS: INSULIN DETEMIR 100 UNITS/ML VIAL SQ SCH ×2 (10:20→22:46)
[2017-11-24] MEDS: SENNOSIDES 8.6 MG TAB PO PRN (10:36)
--- NOTE | 2017-11-24 11:34 | HHI.GIFU ---
Subjective Remarks Pt resting in bed. feeling better, less pain. tolerating diet. (Hortencia Chen) Objective Vitals I&O Vital Signs Date Time Temp Pulse Resp B/P (MAP) Pulse Ox O2 Delivery O2 Flow Rate FiO2 11/24/17 08:30 79 11/24/17 08:00 98.8 84 18 158/76 (103) 97 11/24/17 06:23 16 11/24/17 06:00 80 11/24/17 05:59 99.6 81 18 144/66 (92) 95 11/24/17 05:00 76 11/24/17 04:00 75 11/24/17 03:00 74 11/24/17 02:11 74 11/24/17 01:00 76 11/24/17 00:33 99.7 89 18 173/83 (113) 94 11/24/17 00:00 75 11/23/17 23:00 74 11/23/17 22:00 92 11/23/17 21:00 80 11/23/17 20:53 99.0 84 20 170/70 (103) 95 11/23/17 20:00 83 11/23/17 19:00 84 11/23/17 18:00 88 11/23/17 17:00 90 11/23/17 16:40 98.5 71 16 166/83 (110) 98 11/23/17 16:00 88 11/23/17 15:00 76 11/23/17 14:00 66 11/23/17 13:00 72 11/23/17 12:00 68 11/23/17 11:39 98.3 82 20 142/81 (101) 97 I/O 11/23/17 11/23/17 11/23/17 11/24/17 11/24/17 11/24/17 07:00 15:00 23:00 07:00 15:00 23:00 Intake Total 40 ml 2745 ml 1320 ml 1640 ml Output Total 250 ml Balance 40 ml 2745 ml 1320 ml 1390 ml Intake Oral 40 ml 1320 ml 1640 ml IV Total 2745 ml Drainage Total 250 ml # Voids 2 5 1 Laboratory Laboratory Tests Test 11/18/17 02:44 11/18/17 03:55 11/18/17 11:02 11/18/17 20:08 Nasal Screen MRSA (PCR) MRSA NOT DETECTED Basophils % 1 % Atypical Lymphocytes % Prothrombin Time 10.1 SEC Prothromb Time International Ratio 1.0 RATIO Activated Partial Thromboplast Time 24.3 SEC Amylase Level 29 U/L Lipase 189 U/L Hepatitis A IgM Antibody NEGATIVE Hepatitis B Surface Antigen NEGATIVE Hepatitis B Core IgM Antibody NEGATIVE Hepatitis C Antibody NEGATIVE Acanthocytes OCC Test 11/19/17 03:15 11/19/17 22:51 11/20/17 06:05 11/23/17 03:45 White Blood Count 8.8 TH/MM3 Red Blood Count 4.08 MIL/MM3 Hemoglobin 12.2 GM/DL Hematocrit 34.9 % Mean Corpuscular Volume 85.4 FL Mean Corpuscular Hemoglobin 29.8 PG Mean Corpuscular Hemoglobin Concent 34.9 % Red Cell Distribution Width 14.1 % Platelet Count 161 TH/MM3 Mean Platelet Volume 10.6 FL CBC Comment AUTO DIFF Differential Total Cells Counted 100 Neutrophils % (Manual) 61 % Band Neutrophils % 6 % Lymphocytes % 22 % Monocytes % 10 % Eosinophils % 1 % Neutrophils # (Manual) 5.9 TH/MM3 Differential Comment FINAL DIFF MANUAL Platelet Estimate NORMAL Platelet Morphology Comment ENLARGED Target Cells 1+ Stomatocytes 1+ Blood Urea Nitrogen 8 MG/DL 5 MG/DL Creatinine 0.62 MG/DL 0.51 MG/DL Random Glucose 214 MG/DL 234 MG/DL Total Protein 5.5 GM/DL 6.1 GM/DL Albumin 2.5 GM/DL 2.1 GM/DL Calcium Level 8.9 MG/DL 8.4 MG/DL Phosphorus Level 2.3 MG/DL 2.3 MG/DL Magnesium Level 2.0 MG/DL Alkaline Phosphatase 1156 U/L 627 U/L Aspartate Amino Transf (AST/SGOT) 843 U/L 42 U/L Alanine Aminotransferase (ALT/SGPT) 1228 U/L 368 U/L Total Bilirubin 13.9 MG/DL 3.9 MG/DL Sodium Level 137 MEQ/L 133 MEQ/L Potassium Level 3.2 MEQ/L 3.8 MEQ/L Chloride Level 99 MEQ/L 98 MEQ/L Carbon Dioxide Level 23.5 MEQ/L 25.2 MEQ/L Iron Level 65 MCG/DL Total Iron Binding Capacity 336 MCG/DL Percent Iron Saturation 19.3 % Ferritin 1490 NG/ML [id number] 273 mg/dL Ceruloplasmin 53 mg/dL Tumor Marker Alpha Fetoprotein 2.1 NG/ML Anti-Nuclear Antibody Screen NEG Mitochondria M2 Antibody LESS THAN 20.0 U Anti-Smooth Muscle Antibody Negative Direct Bilirubin 12.3 MG/DL Indirect Bilirubin 3.2 MG/DL CA 19-9 Antigen 165.4 U/ML Anion Gap 10 MEQ/L Estimat Glomerular Filtration Rate 123 ML/MIN Imaging Last Impressions Abdomen CT 11/21/17 0000 Signed Impressions: Service Date/Time: Wednesday, November 22, 2017 21:21 - CONCLUSION: 1. No perceptible liver mass but there is a questionable elongated low density lesion of the pancreaticoduodenal groove. 2. Internal/external biliary drainage catheters appear appropriately positioned. No extrahepatic very distention. Intrahepatic ducts appear mildly prominent. 3. Cholelithiasis. No perceptible duct stone. 4. No lymphadenopathy or other evidence of metastatic disease in the abdomen. 5. Nonspecific pleural effusions and dependent/compressive atelectasis of the visualized lung bases, right slightly worse than left. Lionel Campoverde MD Bile Duct Drainage 11/19/17 0000 Signed Impressions: Service Date/Time: Sunday, November 19, 2017 08:38 - CONCLUSION: 1. Large filling defect/mass at the confluence of the hepatic ducts extending to the very central common bile duct. This has a typical Klatskin tumor appearance. 2. Uncomplicated transhepatic percutaneous drainage catheter placement. An 8 Macedonian internal/external drain was placed. Ameya Valdez MD Liver Ultrasound 11/18/17 0000 Signed Impressions: Service Date/Time: Saturday, November 18, 2017 09:04 - CONCLUSION: 1. Extensive shadowing in the gallbladder fossa probably related to multiple gallstones. 2. Enlarged, fatty liver. 3. Probable sludge in common bile duct. Philip Mcgowan MD Chest X-Ray 11/18/17 0000 Signed Impressions: Service Date/Time: Saturday, November 18, 2017 08:35 - CONCLUSION: 1. Left lung base airspace disease, presumably atelectasis. Developing pneumonia cannot be excluded in the appropriate clinical setting. Ameya Valdez MD Physical Exam HEENT: Normocephalic; atraumatic; CHEST: Even/unlabored CARDIAC: RRR ABDOMEN: mildly Distended,soft, mild upper quadrant TTP less than before, bowel sounds active EXTREMITIES: No clubbing, cyanosis, or edema. SKIN: (+) mild jaundice. 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 (Hortencia Chen) Assessment and Plan Plan ASSESSMENT - abd pain, jaundice, elevated LFTs - LFTs elevated obstructive pattern, upper quadrant pain, nausea. choledocholithiasis vs cystic obstruction CBD CT 11/15 showed cholelithiasis, poss cyst pancreatic head, MRCP 11/16 showed cystic mass, HIDA 11/17 suggestive CBD obstruction. WBC is WNL - ?ascites - abd soft and distended. liver US is pending. 11/19/17 liver US showed prob sludge CBD, prob gallstones, fatty liver. Not much change LFTs. s/p unsuccessful ERCP - ampulla distorted with ulcer and scarring. 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 CA 19-9 elevated 165. GS consult pending. pt noncontributory today. (11/21) Pt reports continued abdominal pain and distention, some relief with BM today after multiple days of no BM. GS also recommending EUS with biopsy as well as CT scan pancreatic protocol. LFTs continue to trend down today. 11/23/17, appears to be having a bad morning increased upper abdominal pressure radiating into the left and right side. Feels pain management is ineffective. Labs mildly improved with bilirubin 3.9, AST 42, ALT 368, alkaline phosphatase 627. Nausea uncontrolled Continues to have drainage from right sided biliary tube, EUS done on 11/22/[address] Farrell, Probable biliary mass possibly pancreatic, biopsies are pending, gallstones 11/24/17 doing better, less pain. tolerating diet. bx still pending PLAN - Biopsies pending, await results - await GS f/u - MOHIT - Monitor labs - supportive care Pt has been seen and examined by myself and Dr. Hickey and this note is written on his behalf (Hortencia Chen) Physician Comments As above, doing better than yesterday and no abd pain. Will follow up with you. (Luther Hickey MD) Hortencia Chen Nov 24, 2017 11:34 Luther Hickey MD Nov 24, 2017 13:14
--- NOTE | 2017-11-24 12:34 | HHI.PR ---
Subjective Remarks Follow-up Klatskin tumor/cholelithiasis/new onset diabetes 11/23/17-patient seen and examined early nothing by mouth and complaint of nausea. Also complains of poorly controlled pain and requesting her narcotics to be adjusted. EUS done yesterday 11/22/17 11/24/17-patient seen and examined; states she's had improvement of abdominal pain and denies any nausea was able to tolerate by mouth. Objective Vitals Vital Signs Date Time Temp Pulse Resp B/P (MAP) Pulse Ox O2 Delivery O2 Flow Rate FiO2 11/24/17 12:05 98.9 82 18 148/81 (103) 98 11/24/17 08:30 79 11/24/17 08:00 98.8 84 18 158/76 (103) 97 11/24/17 06:23 16 11/24/17 06:00 80 11/24/17 05:59 99.6 81 18 144/66 (92) 95 11/24/17 05:00 76 11/24/17 04:00 75 11/24/17 03:00 74 11/24/17 02:11 74 11/24/17 01:00 76 11/24/17 00:33 99.7 89 18 173/83 (113) 94 11/24/17 00:00 75 11/23/17 23:00 74 11/23/17 22:00 92 11/23/17 21:00 80 11/23/17 20:53 99.0 84 20 170/70 (103) 95 11/23/17 20:00 83 11/23/17 19:00 84 11/23/17 18:00 88 11/23/17 17:00 90 11/23/17 16:40 98.5 71 16 166/83 (110) 98 11/23/17 16:00 88 11/23/17 15:00 76 11/23/17 14:00 66 11/23/17 13:00 72 I/O 11/23/17 11/23/17 11/23/17 11/24/17 11/24/17 11/24/17 07:00 15:00 23:00 07:00 15:00 23:00 Intake Total 40 ml 2745 ml 1320 ml 1640 ml Output Total 250 ml Balance 40 ml 2745 ml 1320 ml 1390 ml Intake Oral 40 ml 1320 ml 1640 ml IV Total 2745 ml Drainage Total 250 ml # Voids 2 5 1 Result Diagram: 11/23/17 0345 Imaging Last Impressions Abdomen CT 11/21/17 0000 Signed Impressions: Service Date/Time: Wednesday, November 22, 2017 21:21 - CONCLUSION: 1. No perceptible liver mass but there is a questionable elongated low density lesion of the pancreaticoduodenal groove. 2. Internal/external biliary drainage catheters appear appropriately positioned. No extrahepatic very distention. Intrahepatic ducts appear mildly prominent. 3. Cholelithiasis. No perceptible duct stone. 4. No lymphadenopathy or other evidence of metastatic disease in the abdomen. 5. Nonspecific pleural effusions and dependent/compressive atelectasis of the visualized lung bases, right slightly worse than left. Lionel Campoverde MD Bile Duct Drainage 11/19/17 0000 Signed Impressions: Service Date/Time: Sunday, November 19, 2017 08:38 - CONCLUSION: 1. Large filling defect/mass at the confluence of the hepatic ducts extending to the very central common bile duct. This has a typical Klatskin tumor appearance. 2. Uncomplicated transhepatic percutaneous drainage catheter placement. An 8 Kinyarwanda internal/external drain was placed. Ameya Valdez MD Liver Ultrasound 11/18/17 0000 Signed Impressions: Service Date/Time: Saturday, November 18, 2017 09:04 - CONCLUSION: 1. Extensive shadowing in the gallbladder fossa probably related to multiple gallstones. 2. Enlarged, fatty liver. 3. Probable sludge in common bile duct. Philip Mcgowan MD Chest X-Ray 11/18/17 0000 Signed Impressions: Service Date/Time: Saturday, November 18, 2017 08:35 - CONCLUSION: 1. Left lung base airspace disease, presumably atelectasis. Developing pneumonia cannot be excluded in the appropriate clinical setting. Ameya Valdez MD Objective Remarks GENERAL: NAD SKIN: Warm and dry. HEAD: Normocephalic. EYES: No scleral icterus. No injection or drainage. NECK: Supple, trachea midline. No JVD or lymphadenopathy. CARDIOVASCULAR: Regular rate and rhythm without murmurs, gallops, or rubs. RESPIRATORY: Breath sounds equal bilaterally. No accessory muscle use. GASTROINTESTINAL: Abdomen soft, non-tender, nondistended. MUSCULOSKELETAL: No cyanosis, or edema. Biliary drain in place BACK: Nontender without obvious deformity. No CVA tenderness. 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
[2017-11-24 12:37] LABS: ALBUMIN 2.1 GM/DL (3.4-5.0); AST (GOT) 36 U/L (15-37); BLOOD UREA NITROGEN 5 MG/DL (7-18); CALCIUM 8.4 MG/DL (8.5-10.1); CHLORIDE 94 MEQ/L (98-107); CREATININE 0.63 MG/DL (0.50-1.00); GLOMERULAR FILTRATION RATE 96 ML/MIN (>89); GLUCOSE,RANDOM 237 MG/DL (74-106); SODIUM (NA) 129 MEQ/L (136-145)
[2017-11-24 12:38] LABS: ALT (GPT) 243 U/L (10-53)
[2017-11-24 12:40] LABS: ALKALINE PHOSPHATASE 536 U/L (45-117); TOTAL BILIRUBIN ADULT 4.3 MG/DL (0.2-1.0); TOTAL PROTEIN 6.1 GM/DL (6.4-8.2)
[2017-11-24 13:02] LABS: HEMOGLOBIN A1C 11.1 % (4.3-6.0)
[2017-11-24] MEDS ORDERED: HYDROmorphone HCL PF 1 MG/ML VIAL IV PUSH ONE (21:00)
[2017-11-25] VITALS (31 sets, daily range): BP systolic 147–178; BP diastolic 62–84; PULSE 63–94; RESP 18–22; TEMP 98.5–100.2; O2SAT 88–94
[2017-11-25] MEDS: CHLORHEXIDINE GLUCONATE 2 % 1 PACK (2 CLOTHS) TOP SCH ×2 (00:27→19:04)
[2017-11-25] MEDS: HYDROmorphone HCL PF 2 MG/ML VIAL IV PRN ×6 (00:45→22:06)
[2017-11-25] MEDS: ONDANSETRON HCL 4 MG/2 ML VIAL IV PUSH PRN ×6 (00:45→22:04)
[2017-11-25] MEDS: SENNOSIDES 8.6 MG TAB PO PRN (05:09)
[2017-11-25] MEDS: D5-1/2 NS + KCL 20 MEQ INJ 1,000 ML IV SCH ×2 (05:12→16:29)
[2017-11-25] MEDS: INSULIN ASPART SUPPLEMENTAL SCALE SQ SCH ×4 (06:46→21:41)
[2017-11-25 07:40] LABS: BICARBONATE 28.6 MEQ/L (21.0-32.0); CALCIUM 8.4 MG/DL (8.5-10.1); CREATININE 0.61 MG/DL (0.50-1.00)
[2017-11-25] MEDS: METOPROLOL TARTRATE 25 MG TAB PO SCH ×2 (08:13→21:44)
[2017-11-25] MEDS: FAMOTIDINE 20 MG/2 ML VIAL IV PUSH SCH ×2 (08:13→21:45)
[2017-11-25] MEDS: INSULIN DETEMIR 100 UNITS/ML VIAL SQ SCH ×2 (08:14→21:44)
[2017-11-25] MEDS: SODIUM CHLORIDE 0.9% FLUSH 10 ML FLUSH IV FLUSH SCH ×2 (08:14→21:45)
--- NOTE | 2017-11-25 10:16 | HHI.PR ---
Subjective Remarks Follow-up Klatskin tumor/cholelithiasis/new onset diabetes 11/23/17-patient seen and examined early nothing by mouth and complaint of nausea. Also complains of poorly controlled pain and requesting her narcotics to be adjusted. EUS done yesterday 11/22/17 11/24/17-patient seen and examined; states she's had improvement of abdominal pain and denies any nausea was able to tolerate by mouth. 11/25/17-patient seen and examined, reports some abdominal discomfort this morning otherwise stable and afebrile Objective Vitals Vital Signs Date Time Temp Pulse Resp B/P (MAP) Pulse Ox O2 Delivery O2 Flow Rate FiO2 11/25/17 08:07 95 Nasal Cannula 2.00 11/25/17 08:00 98.8 72 22 155/68 (97) 90 11/25/17 07:02 71 11/25/17 06:01 75 11/25/17 05:03 75 11/25/17 04:36 98.9 79 18 152/73 (99) 93 11/25/17 04:07 67 11/25/17 03:06 64 11/25/17 02:06 67 11/25/17 01:08 72 11/25/17 00:48 100.2 71 18 148/66 (93) 94 11/25/17 00:01 71 11/24/17 23:00 70 11/24/17 22:04 72 11/24/17 21:03 79 11/24/17 20:52 86 18 168/89 (115) 93 11/24/17 20:07 72 11/24/17 19:06 77 11/24/17 16:00 73 11/24/17 16:00 99.3 76 18 138/65 (89) 95 11/24/17 12:05 98.9 82 18 148/81 (103) 98 11/24/17 12:00 68 I/O 11/24/17 11/24/17 11/24/17 11/25/17 11/25/17 11/25/17 07:00 15:00 23:00 07:00 15:00 23:00 Intake Total 1640 ml 600 ml 1180 ml Output Total 250 ml 10 ml 1030 ml Balance 1390 ml 590 ml 150 ml Intake Oral 1640 ml 600 ml 280 ml IV Total 900 ml Output Urine Total 850 ml Drainage Total 250 ml 10 ml 180 ml # Voids 1 4 2 # Bowel Movements 0 Result Diagram: 11/25/17 0617 Imaging Last Impressions Abdomen CT 11/21/17 0000 Signed Impressions: Service Date/Time: Wednesday, November 22, 2017 21:21 - CONCLUSION: 1. No perceptible liver mass but there is a questionable elongated low density lesion of the pancreaticoduodenal groove. 2. Internal/external biliary drainage catheters appear appropriately positioned. No extrahepatic very distention. Intrahepatic ducts appear mildly prominent. 3. Cholelithiasis. No perceptible duct stone. 4. No lymphadenopathy or other evidence of metastatic disease in the abdomen. 5. Nonspecific pleural effusions and dependent/compressive atelectasis of the visualized lung bases, right slightly worse than left. Lionel Campoverde MD Bile Duct Drainage 11/19/17 0000 Signed Impressions: Service Date/Time: Sunday, November 19, 2017 08:38 - CONCLUSION: 1. Large filling defect/mass at the confluence of the hepatic ducts extending to the very central common bile duct. This has a typical Klatskin tumor appearance. 2. Uncomplicated transhepatic percutaneous drainage catheter placement. An 8 Qatari internal/external drain was placed. Ameya Valdez MD Liver Ultrasound 11/18/17 0000 Signed Impressions: Service Date/Time: Saturday, November 18, 2017 09:04 - CONCLUSION: 1. Extensive shadowing in the gallbladder fossa probably related to multiple gallstones. 2. Enlarged, fatty liver. 3. Probable sludge in common bile duct. Philip Mcgowan MD Chest X-Ray 11/18/17 0000 Signed Impressions: Service Date/Time: Saturday, November 18, 2017 08:35 - CONCLUSION: 1. Left lung base airspace disease, presumably atelectasis. Developing pneumonia cannot be excluded in the appropriate clinical setting. Ameya Valdez MD Objective Remarks GENERAL: NAD SKIN: Warm and dry. HEAD: Normocephalic. EYES: No scleral icterus. No injection or drainage. NECK: Supple, trachea midline. No JVD or lymphadenopathy. CARDIOVASCULAR: Regular rate and rhythm without murmurs, gallops, or rubs. RESPIRATORY: Breath sounds equal bilaterally. No accessory muscle use. GASTROINTESTINAL: Abdomen soft, non-tender, nondistended. MUSCULOSKELETAL: No cyanosis, or edema. Biliary drain in place BACK: Nontender without obvious deformity. No CVA tenderness. 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
[2017-11-25] MEDS ORDERED: POTASSIUM CHLORIDE 10 MEQ CONTROLLED RELEASE TAB PO ONE (10:30)
--- NOTE | 2017-11-25 11:40 | HHI.GIFU ---
Subjective Remarks Pt resting in bed. Not much change. tolerating diet. (Hortencia Chen) Objective Vitals I&O Vital Signs Date Time Temp Pulse Resp B/P (MAP) Pulse Ox O2 Delivery O2 Flow Rate FiO2 11/25/17 10:00 78 11/25/17 09:00 70 11/25/17 08:07 95 Nasal Cannula 2.00 11/25/17 08:00 98.8 72 22 155/68 (97) 90 11/25/17 08:00 70 11/25/17 07:02 71 11/25/17 06:01 75 11/25/17 05:03 75 11/25/17 04:36 98.9 79 18 152/73 (99) 93 11/25/17 04:07 67 11/25/17 03:06 64 11/25/17 02:06 67 11/25/17 01:08 72 11/25/17 00:48 100.2 71 18 148/66 (93) 94 11/25/17 00:01 71 11/24/17 23:00 70 11/24/17 22:04 72 11/24/17 21:03 79 11/24/17 20:52 86 18 168/89 (115) 93 11/24/17 20:07 72 11/24/17 19:06 77 11/24/17 16:00 73 11/24/17 16:00 99.3 76 18 138/65 (89) 95 11/24/17 12:05 98.9 82 18 148/81 (103) 98 11/24/17 12:00 68 I/O 11/24/17 11/24/17 11/24/17 11/25/17 11/25/17 11/25/17 07:00 15:00 23:00 07:00 15:00 23:00 Intake Total 1640 ml 600 ml 1180 ml Output Total 250 ml 10 ml 1030 ml Balance 1390 ml 590 ml 150 ml Intake Oral 1640 ml 600 ml 280 ml IV Total 900 ml Output Urine Total 850 ml Drainage Total 250 ml 10 ml 180 ml # Voids 1 4 2 # Bowel Movements 0 Laboratory Laboratory Tests Test 11/25/17 06:17 Blood Urea Nitrogen 4 Creatinine 0.61 Random Glucose 173 Calcium Level 8.4 Sodium Level 132 Potassium Level 3.2 Chloride Level 95 Carbon Dioxide Level 28.6 Anion Gap 8 Estimat Glomerular Filtration Rate 100 Imaging Last Impressions Abdomen CT 11/21/17 0000 Signed Impressions: Service Date/Time: Wednesday, November 22, 2017 21:21 - CONCLUSION: 1. No perceptible liver mass but there is a questionable elongated low density lesion of the pancreaticoduodenal groove. 2. Internal/external biliary drainage catheters appear appropriately positioned. No extrahepatic very distention. Intrahepatic ducts appear mildly prominent. 3. Cholelithiasis. No perceptible duct stone. 4. No lymphadenopathy or other evidence of metastatic disease in the abdomen. 5. Nonspecific pleural effusions and dependent/compressive atelectasis of the visualized lung bases, right slightly worse than left. Lionel Campoverde MD Bile Duct Drainage 11/19/17 0000 Signed Impressions: Service Date/Time: Sunday, November 19, 2017 08:38 - CONCLUSION: 1. Large filling defect/mass at the confluence of the hepatic ducts extending to the very central common bile duct. This has a typical Klatskin tumor appearance. 2. Uncomplicated transhepatic percutaneous drainage catheter placement. An 8 Pashto internal/external drain was placed. Ameya Valdez MD Liver Ultrasound 11/18/17 0000 Signed Impressions: Service Date/Time: Saturday, November 18, 2017 09:04 - CONCLUSION: 1. Extensive shadowing in the gallbladder fossa probably related to multiple gallstones. 2. Enlarged, fatty liver. 3. Probable sludge in common bile duct. Philip Mcgowan MD Chest X-Ray 11/18/17 0000 Signed Impressions: Service Date/Time: Saturday, November 18, 2017 08:35 - CONCLUSION: 1. Left lung base airspace disease, presumably atelectasis. Developing pneumonia cannot be excluded in the appropriate clinical setting. Ameya Valdez MD Physical Exam HEENT: Normocephalic; atraumatic; CHEST: CTA CARDIAC: RRR ABDOMEN: mildly Distended,soft, mild upper quadrant TTP less than before, bowel sounds active EXTREMITIES: No clubbing, cyanosis, or edema. SKIN: (+) mild jaundice. 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 (Hortencia Chen) Assessment and Plan Plan ASSESSMENT - abd pain, jaundice, elevated LFTs - LFTs elevated obstructive pattern, upper quadrant pain, nausea. choledocholithiasis vs cystic obstruction CBD CT 11/15 showed cholelithiasis, poss cyst pancreatic head, MRCP 11/16 showed cystic mass, HIDA 11/17 suggestive CBD obstruction. WBC is WNL - ?ascites - abd soft and distended. liver US is pending. 11/19/17 liver US showed prob sludge CBD, prob gallstones, fatty liver. Not much change LFTs. s/p unsuccessful ERCP - ampulla distorted with ulcer and scarring. 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 CA 19-9 elevated 165. GS consult pending. pt noncontributory today. (11/21) Pt reports continued abdominal pain and distention, some relief with BM today after multiple days of no BM. GS also recommending EUS with biopsy as well as CT scan pancreatic protocol. LFTs continue to trend down today. 11/23/17, appears to be having a bad morning increased upper abdominal pressure radiating into the left and right side. Feels pain management is ineffective. Labs mildly improved with bilirubin 3.9, AST 42, ALT 368, alkaline phosphatase 627. Nausea uncontrolled Continues to have drainage from right sided biliary tube, EUS done on 11/22/[address] Farrell, Probable biliary mass possibly pancreatic, biopsies are pending, gallstones 11/24/17 doing better, less pain. tolerating diet. bx still pending 11/25/17 bx still pending. pain managed. tolerating diet. PLAN - Biopsies pending, await results - MOHIT - Monitor labs - supportive care Pt has been seen and examined by myself and and myself and this note is on her behalf (Hortencia Chen) Physician Comments seen, examined agree with above await pathology report possible surgery this week consider oncology eval based on the above results (Landy Broussard MD) Hortencia Chen Nov 25, 2017 11:40 Landy Broussard MD Nov 25, 2017 12:50
[2017-11-25] MEDS ORDERED: DEXTROSE 50% IN WATER 50 ML VIAL(D50) IV PUSH PRN (18:30)
[2017-11-25] MEDS ORDERED: GLUCAGON 1 MG/ML VIAL OTHER PRN (18:30)
[2017-11-25] MEDS: hydrALAZINE HCL 20 MG/ML VIAL IV PUSH PRN (19:21)
[2017-11-26] VITALS (24 sets, daily range): BP systolic 145–172; BP diastolic 64–78; PULSE 62–83; RESP 16–20; TEMP 98.3–100.3; O2SAT 90–96
[2017-11-26] MEDS: ONDANSETRON HCL 4 MG/2 ML VIAL IV PUSH PRN ×5 (02:15→21:05)
[2017-11-26] MEDS: HYDROmorphone HCL PF 2 MG/ML VIAL IV PRN ×2 (02:15→06:35)
[2017-11-26] MEDS: D5-1/2 NS + KCL 20 MEQ INJ 1,000 ML IV SCH (02:18)
[2017-11-26 06:40] LABS: ALT (GPT) 173 U/L (10-53); AST (GOT) 42 U/L (15-37); BLOOD UREA NITROGEN 1 MG/DL (7-18); CALCIUM 8.1 MG/DL (8.5-10.1); CHLORIDE 98 MEQ/L (98-107); CREATININE 0.52 MG/DL (0.50-1.00); GLOMERULAR FILTRATION RATE 120 ML/MIN (>89); GLUCOSE,RANDOM 177 MG/DL (74-106); SODIUM (NA) 135 MEQ/L (136-145)
[2017-11-26 06:43] LABS: ALKALINE PHOSPHATASE 431 U/L (45-117); TOTAL BILIRUBIN ADULT 4.1 MG/DL (0.2-1.0); TOTAL PROTEIN 6.2 GM/DL (6.4-8.2)
[2017-11-26] MEDS: INSULIN DETEMIR 100 UNITS/ML VIAL SQ SCH ×2 (07:57→23:40)
[2017-11-26] MEDS: FAMOTIDINE 20 MG/2 ML VIAL IV PUSH SCH ×2 (07:57→21:04)
[2017-11-26] MEDS: METOPROLOL TARTRATE 25 MG TAB PO SCH ×2 (07:57→21:03)
[2017-11-26] MEDS: SENNOSIDES 8.6 MG TAB PO PRN (08:07)
[2017-11-26] MEDS: INSULIN ASPART SUPPLEMENTAL SCALE SQ SCH ×4 (08:07→21:00)
[2017-11-26] MEDS: oxyCODONE/ACETAMINOPHEN 5 MG/325 MG TAB PO PRN ×3 (10:43→21:07)
[2017-11-26] MEDS: SODIUM CHLORIDE 0.9% FLUSH 10 ML FLUSH IV FLUSH SCH ×2 (10:46→21:04)
--- NOTE | 2017-11-26 10:52 | HHI.PR ---
Subjective Remarks Follow-up Klatskin tumor/cholelithiasis/new onset diabetes 11/23/17-patient seen and examined early nothing by mouth and complaint of nausea. Also complains of poorly controlled pain and requesting her narcotics to be adjusted. EUS done yesterday 11/22/17 11/24/17-patient seen and examined; states she's had improvement of abdominal pain and denies any nausea was able to tolerate by mouth. 11/25/17-patient seen and examined, reports some abdominal discomfort this morning otherwise stable and afebrile 11/26/17-patient seen and examined, no significant abdominal pain. Was concerned about addiction to narcotics, Objective Vitals Vital Signs Date Time Temp Pulse Resp B/P (MAP) Pulse Ox O2 Delivery O2 Flow Rate FiO2 11/26/17 07:54 98.6 70 16 151/71 (97) 90 11/26/17 07:21 69 11/26/17 06:03 73 11/26/17 05:01 78 11/26/17 04:13 18 11/26/17 04:05 83 11/26/17 03:36 98.8 74 18 155/65 (95) 93 11/26/17 03:06 69 11/26/17 02:02 70 11/26/17 01:07 79 11/26/17 00:35 100.3 71 18 148/64 (92) 93 11/26/17 00:04 67 11/25/17 23:07 70 11/25/17 22:00 94 11/25/17 21:35 158/62 (94) 11/25/17 21:01 90 11/25/17 20:50 Room Air 11/25/17 20:02 83 11/25/17 19:50 87 93 11/25/17 19:36 99.9 83 18 159/66 (97) 88 11/25/17 19:20 178/84 (115) 11/25/17 19:14 73 11/25/17 17:00 72 11/25/17 16:41 99.1 76 22 176/71 (106) 90 11/25/17 16:00 78 11/25/17 15:00 72 11/25/17 14:00 80 11/25/17 13:00 68 11/25/17 12:00 79 11/25/17 11:45 98.5 63 147/67 (93) 94 11/25/17 11:00 72 I/O 11/25/17 11/25/17 11/25/17 11/26/17 11/26/17 11/26/17 07:00 15:00 23:00 07:00 15:00 23:00 Intake Total 1180 ml 1000 ml 600 ml Output Total 1030 ml 2920 ml 820 ml Balance 150 ml -1920 ml -220 ml Intake Oral 280 ml 1000 ml 600 ml IV Total 900 ml Output Urine Total 850 ml 2700 ml 800 ml Drainage Total 180 ml 220 ml 20 ml # Voids 2 3 # Bowel Movements 0 2 Result Diagram: 11/26/17 0539 Imaging Last Impressions Abdomen CT 11/21/17 0000 Signed Impressions: Service Date/Time: Wednesday, November 22, 2017 21:21 - CONCLUSION: 1. No perceptible liver mass but there is a questionable elongated low density lesion of the pancreaticoduodenal groove. 2. Internal/external biliary drainage catheters appear appropriately positioned. No extrahepatic very distention. Intrahepatic ducts appear mildly prominent. 3. Cholelithiasis. No perceptible duct stone. 4. No lymphadenopathy or other evidence of metastatic disease in the abdomen. 5. Nonspecific pleural effusions and dependent/compressive atelectasis of the visualized lung bases, right slightly worse than left. Lionel Campoverde MD Bile Duct Drainage 11/19/17 0000 Signed Impressions: Service Date/Time: Sunday, November 19, 2017 08:38 - CONCLUSION: 1. Large filling defect/mass at the confluence of the hepatic ducts extending to the very central common bile duct. This has a typical Klatskin tumor appearance. 2. Uncomplicated transhepatic percutaneous drainage catheter placement. An 8 Khmer internal/external drain was placed. Ameya Valdez MD Liver Ultrasound 11/18/17 0000 Signed Impressions: Service Date/Time: Saturday, November 18, 2017 09:04 - CONCLUSION: 1. Extensive shadowing in the gallbladder fossa probably related to multiple gallstones. 2. Enlarged, fatty liver. 3. Probable sludge in common bile duct. Philip Mcgowan MD Chest X-Ray 11/18/17 0000 Signed Impressions: Service Date/Time: Saturday, November 18, 2017 08:35 - CONCLUSION: 1. Left lung base airspace disease, presumably atelectasis. Developing pneumonia cannot be excluded in the appropriate clinical setting. Ameya Valdez MD Objective Remarks GENERAL: NAD SKIN: Warm and dry. HEAD: Normocephalic. EYES: No scleral icterus. No injection or drainage. NECK: Supple, trachea midline. No JVD or lymphadenopathy. CARDIOVASCULAR: Regular rate and rhythm without murmurs, gallops, or rubs. RESPIRATORY: Breath sounds equal bilaterally. No accessory muscle use. GASTROINTESTINAL: Abdomen soft, non-tender, nondistended. MUSCULOSKELETAL: No cyanosis, or edema. Biliary drain in place BACK: Nontender without obvious deformity. No CVA tenderness. 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 surgery waiting for biopsy report at this time Diabetes type 2 Continue Levemir 10 units every 12H Hypertension Continue Lopressor 50 mg every 12 hours Zan Ramirez MD Nov 26, 2017 10:52
--- NOTE | 2017-11-26 10:57 | HHI.GIFU ---
Subjective Remarks Pt OOB doing morning toilette and practicing ambulating with walker. Feeling better today. (Hortencia Chen) Objective Vitals I&O Vital Signs Date Time Temp Pulse Resp B/P (MAP) Pulse Ox O2 Delivery O2 Flow Rate FiO2 11/26/17 10:52 98.8 74 20 145/76 (99) 93 11/26/17 07:54 98.6 70 16 151/71 (97) 90 11/26/17 07:21 69 11/26/17 06:03 73 11/26/17 05:01 78 11/26/17 04:13 18 11/26/17 04:05 83 11/26/17 03:36 98.8 74 18 155/65 (95) 93 11/26/17 03:06 69 11/26/17 02:02 70 11/26/17 01:07 79 11/26/17 00:35 100.3 71 18 148/64 (92) 93 11/26/17 00:04 67 11/25/17 23:07 70 11/25/17 22:00 94 11/25/17 21:35 158/62 (94) 11/25/17 21:01 90 11/25/17 20:50 Room Air 11/25/17 20:02 83 11/25/17 19:50 87 93 11/25/17 19:36 99.9 83 18 159/66 (97) 88 11/25/17 19:20 178/84 (115) 11/25/17 19:14 73 11/25/17 17:00 72 11/25/17 16:41 99.1 76 22 176/71 (106) 90 11/25/17 16:00 78 11/25/17 15:00 72 11/25/17 14:00 80 11/25/17 13:00 68 11/25/17 12:00 79 11/25/17 11:45 98.5 63 147/67 (93) 94 11/25/17 11:00 72 I/O 11/25/17 11/25/17 11/25/17 11/26/17 11/26/17 11/26/17 07:00 15:00 23:00 07:00 15:00 23:00 Intake Total 1180 ml 1000 ml 600 ml Output Total 1030 ml 2920 ml 820 ml Balance 150 ml -1920 ml -220 ml Intake Oral 280 ml 1000 ml 600 ml IV Total 900 ml Output Urine Total 850 ml 2700 ml 800 ml Drainage Total 180 ml 220 ml 20 ml # Voids 2 3 # Bowel Movements 0 2 Laboratory Laboratory Tests Test 11/26/17 05:39 Blood Urea Nitrogen 1 Creatinine 0.52 Random Glucose 177 Total Protein 6.2 Albumin 2.0 Calcium Level 8.1 Alkaline Phosphatase 431 Aspartate Amino Transf (AST/SGOT) 42 Alanine Aminotransferase (ALT/SGPT) 173 Total Bilirubin 4.1 Sodium Level 135 Potassium Level 3.6 Chloride Level 98 Carbon Dioxide Level 27.0 Anion Gap 10 Estimat Glomerular Filtration Rate 120 Imaging Last Impressions Abdomen CT 11/21/17 0000 Signed Impressions: Service Date/Time: Wednesday, November 22, 2017 21:21 - CONCLUSION: 1. No perceptible liver mass but there is a questionable elongated low density lesion of the pancreaticoduodenal groove. 2. Internal/external biliary drainage catheters appear appropriately positioned. No extrahepatic very distention. Intrahepatic ducts appear mildly prominent. 3. Cholelithiasis. No perceptible duct stone. 4. No lymphadenopathy or other evidence of metastatic disease in the abdomen. 5. Nonspecific pleural effusions and dependent/compressive atelectasis of the visualized lung bases, right slightly worse than left. Lionel Campoverde MD Bile Duct Drainage 11/19/17 0000 Signed Impressions: Service Date/Time: Sunday, November 19, 2017 08:38 - CONCLUSION: 1. Large filling defect/mass at the confluence of the hepatic ducts extending to the very central common bile duct. This has a typical Klatskin tumor appearance. 2. Uncomplicated transhepatic percutaneous drainage catheter placement. An 8 Moldovan internal/external drain was placed. Ameya Valdez MD Liver Ultrasound 11/18/17 0000 Signed Impressions: Service Date/Time: Saturday, November 18, 2017 09:04 - CONCLUSION: 1. Extensive shadowing in the gallbladder fossa probably related to multiple gallstones. 2. Enlarged, fatty liver. 3. Probable sludge in common bile duct. Philip Mcgowan MD Chest X-Ray 11/18/17 0000 Signed Impressions: Service Date/Time: Saturday, November 18, 2017 08:35 - CONCLUSION: 1. Left lung base airspace disease, presumably atelectasis. Developing pneumonia cannot be excluded in the appropriate clinical setting. Ameya Valdez MD Physical Exam HEENT: Normocephalic; atraumatic; +icterus CHEST: CTA CARDIAC: RRR ABDOMEN: mildly Distended,soft, mild upper quadrant TTP less than before, bowel sounds active EXTREMITIES: No clubbing, cyanosis, or edema. SKIN: (+) mild jaundice. DROP TESTER: No focal deficits; alert and oriented times three. (Hortencia Chen [facility]) Assessment and Plan Plan ASSESSMENT - abd pain, jaundice, elevated LFTs - LFTs elevated obstructive pattern, upper quadrant pain, nausea. choledocholithiasis vs cystic obstruction CBD CT 11/15 showed cholelithiasis, poss cyst pancreatic head, MRCP 11/16 showed cystic mass, HIDA 11/17 suggestive CBD obstruction. WBC is WNL - ?ascites - abd soft and distended. liver US is pending. 11/19/17 liver US showed prob sludge CBD, prob gallstones, fatty liver. Not much change LFTs. s/p unsuccessful ERCP - ampulla distorted with ulcer and scarring. 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 CA 19-9 elevated 165. GS consult pending. pt noncontributory today. (11/21) Pt reports continued abdominal pain and distention, some relief with BM today after multiple days of no BM. GS also recommending EUS with biopsy as well as CT scan pancreatic protocol. LFTs continue to trend down today. 11/23/17, appears to be having a bad morning increased upper abdominal pressure radiating into the left and right side. Feels pain management is ineffective. Labs mildly improved with bilirubin 3.9, AST 42, ALT 368, alkaline phosphatase 627. Nausea uncontrolled Continues to have drainage from right sided biliary tube, EUS done on 11/22/[address] Farrell, Probable biliary mass possibly pancreatic, biopsies are pending, gallstones 11/24/17 doing better, less pain. tolerating diet. bx still pending 11/25/17 bx still pending. pain managed. tolerating diet. 11/26/17 up and moving today, pain improving. d/w GS, still awaiting path PLAN - Biopsies pending, await results - MOHIT - Monitor labs - supportive care Pt has been seen and examined by myself and and myself and this note is on her behalf (Hortencia Chen) Hortencia Chen Nov 26, 2017 10:57 Landy Broussard MD Nov 26, 2017 12:39
[2017-11-26] MEDS ORDERED: oxyCODONE/ACETAMINOPHEN 7.5 MG/325 MG TAB PO PRN (11:00)
[2017-11-26] MEDS ORDERED: SODIUM CHLORIDE 0.9% 10 ML VIAL IRRIGATION SCH (14:00)
--- NOTE | 2017-11-26 17:58 | HHI.PR ---
cc: Elijah Jackson MD Subjective Subjective Notes Reviewed results of patient EUS results Objective Vitals/I&O Vital Signs Date Time Temp Pulse Resp B/P (MAP) Pulse Ox O2 Delivery O2 Flow Rate FiO2 11/26/17 10:52 98.8 74 20 145/76 (99) 93 11/26/17 08:00 Room Air 11/25/17 08:07 2.00 Labs Laboratory Tests Test 11/26/17 05:39 Blood Urea Nitrogen 1 Creatinine 0.52 Random Glucose 177 Total Protein 6.2 Albumin 2.0 Calcium Level 8.1 Alkaline Phosphatase 431 Aspartate Amino Transf (AST/SGOT) 42 Alanine Aminotransferase (ALT/SGPT) 173 Total Bilirubin 4.1 Sodium Level 135 Potassium Level 3.6 Chloride Level 98 Carbon Dioxide Level 27.0 Anion Gap 10 Estimat Glomerular Filtration Rate 120 Cardiovascular: Regular Lungs: Clear Abdomen: Other (external internal biliary drain in place ) Extremities: No edema A/P Assessment and Plan 62 year old female with elevated LFTs -EUS results available---+ adenocarcinoma -Consult Medical Oncology -Diet as tolerated -Continue to monitor LFTs Attending Statement The exam, history, and the medical decision-making described in the above note were completed with the assistance of the mid-level provider. I reviewed and agree with the findings presented. I attest that I had a [id number] encounter with the patient on the same day, and personally performed and documented my assessment and findings in the medical record. long d/w patient (45 minutes) at bedside about diagnosis (pancreatic cancer). discussed prognosis, palliation, treatment options will consult med onc will ask IR to place metal stent and remove biliary drain will plan staging laparoscopy, lap [place] and infusiport placement as outpatient or if has uncontrolled pain can do surgery Saturday as inpatient Chelly BurksP/Stroke Program Coordinator [employer] Nov 26, 2017 17:58 Elijah Jackson MD Nov 27, 2017 09:58
[2017-11-26] MEDS ORDERED: HYDROmorphone HCL PF 2 MG/ML VIAL IV PUSH PRN (19:45)
[2017-11-26] MEDS: guaiFENesin E.R. 600 MG TAB PO SCH (21:03)
[2017-11-27] VITALS (8 sets, daily range): BP systolic 147–163; BP diastolic 65–73; PULSE 63–77; RESP 16–20; TEMP 98–98.7; O2SAT 92–97
[2017-11-27] MEDS: HYDROmorphone HCL PF 2 MG/ML VIAL IV PUSH PRN (00:17)
--- NOTE | 2017-11-27 01:23 | MB ---
cc: Chavo Mitchell MD DATE OF CONSULT: 11/26/2017 REASON FOR CONSULTATION: Patient with recent diagnosis of pancreatic adenocarcinoma. HISTORY OF PRESENT ILLNESS: This is a 62-year-old female who presented to the hospital with abdominal pain and was found to be jaundiced and had abnormal LFTs. This was consistent with an obstructive pattern. She had CT imaging which showed cholelithiasis and there was a possible cystic pancreatic head mass. She subsequently underwent MRCP, which confirmed the cystic mass. She also had a HIDA scan on 11/17/2017, which was consistent with CBD obstruction. She then had a liver ultrasound, which showed sludge in the common bile duct and some gallstones. There was fatty liver. She underwent an ERCP, which was unsuccessful. The ampulla were distorted with ulceration and scarring. She subsequently had biliary drain placement. There were findings of filling defect and mass at the confluence of the hepatic ducts and extending to the CBD. She has undergone endoscopic ultrasound with biopsy. The biopsy and EUS were completed on 11/22/2017. The biopsy confirmed adenocarcinoma with pancreatic primary. Based on the EUS report, there was a proximal common bile duct hypoechogenicity that was less than 2 cm, representing the tumor. The patient had CT of the abdomen with contrast on 11/22/2017. This showed a questionable vague low attenuation lesion in the pancreaticoduodenal groove, which was roughly 2.9 x 1.4 cm in the greatest transaxial dimension. This was anterior to the common bile duct. There was mild mass effect in the duct/biliary drainage catheter. No mass was seen in the pancreas. The ampullary region is grossly unremarkable. There was no liver mass. Oncology has been consulted to make further recommendations in this patient who has a diagnosis of pancreatobiliary adenocarcinoma. REVIEW OF SYSTEMS: A comprehensive review of systems was completed, which is negative except as described in the HPI. PAST MEDICAL HISTORY: 1. Diabetes, controlled with diet 2. Osteoarthritis. 3. History of bursitis. PAST SURGICAL HISTORY: Hysterectomy. FAMILY HISTORY: Was reviewed and is noncontributory to this admission. SOCIAL HISTORY: She does not smoke cigarettes. No alcohol abuse. No illicit drug use. She works at a [employer]. MEDICATIONS: 1. Mucinex 600 mg p.o. b.i.d. 2. Dilaudid 1 mg IV q4 hours p.r.n. 3. Percocet 7.5/325 one tablet p.o. q4 hours p.r.n. 4. Sliding scale insulin. 5. Lopressor 50 mg p.o. q12 hours. 6. Phenergan 12.5 mg IM q4 hours p.r.n. 7. Zofran 4 mg IV q4 hours p.r.n. 8. Motrin 400 mg p.o. q6 hours p.r.n. 9. Hydralazine 10 mg IV q6 hours p.r.n. 10. Pepcid 20 mg IV q12 hours. 11. Labetalol 10 mg IV q4 hours p.r.n. 12. DuoNeb p.r.n. 13. Milk of magnesia p.r.n. 14. Senokot p.r.n. 15. Bisacodyl p.r.n. 16. Lactulose p.r.n. ALLERGIES: METOCLOPRAMIDE. PHYSICAL EXAMINATION: VITAL SIGNS: Blood pressure is 156/78, pulse is in the 60s, temperature is 98.6, O2 saturation is 93% in room air. GENERAL: Well-developed, well-nourished female who is obese, in no apparent distress. HEENT: Pupils are equal, round, reactive to light. EOMI. No oral thrush. No oral lesions. NECK: Supple. No JVD. No bruits. No lymphadenopathy. CHEST: Is clear to auscultation bilaterally. CARDIAC: S1, S2. Regular rate and rhythm. ABDOMEN: Is soft, nondistended. Bowel sounds are present. Biliary drain is in place that has yellow-appearing fluid. EXTREMITIES: Without any edema, erythema or cyanosis. SKIN: Without any petechiae, lesions or bruises. NEUROLOGIC: No focal deficits. PSYCHIATRIC: Mood and affect are appropriate. LABORATORIES: WBC 8.8, hemoglobin 12.2, platelet count 161. Serum Chemistries: Sodium 135, potassium 3.6, CO2 of 27, BUN 1, creatinine 0.52, GFR is 120, glucose is 177, calcium is 8.1, total bilirubin is 4.1, AST is 42, ALT is 173, alkaline phosphatase is 431, albumin is 2. CA 19-9 is 165.4. Amylase is 29, lipase is 189. Hepatitis profile is negative. Imaging was reviewed in the EMR. ASSESSMENT AND PLAN: This is a 62-year-old female who presented with abdominal pain and jaundice and was found to have abnormal liver function tests. She has undergone biliary drain placement. She was found to have a pancreaticobiliary mass, which has been biopsied and this confirmed adenocarcinoma. 1. Pancreatobiliary adenocarcinoma: I reviewed the imaging. I reviewed the endoscopic ultrasound and CT scans. I think this patient needs an evaluation from Surgical Oncology to see whether this mass is resectable. I will discuss this case with Radiology and, at this point, it appears that the mass may be resectable. Dr. Jackson has seen this patient. I will defer further recommendations regarding any surgery to Dr. Jackson. The patient was somewhat ambiguous in terms of moving forward with any kind of treatment for this malignancy. She states that she is not sure whether she would like to go through with any kind of treatment as she is afraid that it may affect her quality of life and she prefers to have quality over quantity of time that she will be alive. We will ask Palliative Care to have a conversation with the patient to determine goals of care. 2. Transaminitis, secondary to underlying malignancy and biliary obstruction: The LFTs appear to be slowly improving. Thank you for allowing me to participate in the care of this patient. I will continue to follow this patient along. MD RYLEY Hong/HANNAH , 12:39 AM , 01:21 AM VIKKI
[2017-11-27] MEDS: oxyCODONE/ACETAMINOPHEN 5 MG/325 MG TAB PO PRN ×5 (02:50→20:19)
[2017-11-27] MEDS: ONDANSETRON HCL 4 MG/2 ML VIAL IV PUSH PRN ×5 (02:50→20:19)
[2017-11-27] MEDS: SODIUM CHLORIDE 0.9% FLUSH 10 ML FLUSH IV FLUSH PRN (02:51)
[2017-11-27] MEDS: CHLORHEXIDINE GLUCONATE 2 % 1 PACK (2 CLOTHS) TOP SCH (04:00)
[2017-11-27] MEDS: INSULIN ASPART SUPPLEMENTAL SCALE SQ SCH ×4 (08:00→20:30)
[2017-11-27] MEDS: FAMOTIDINE 20 MG/2 ML VIAL IV PUSH SCH ×2 (08:46→19:36)
[2017-11-27] MEDS: SODIUM CHLORIDE 0.9% FLUSH 10 ML FLUSH IV FLUSH SCH ×2 (08:47→19:36)
[2017-11-27] MEDS: guaiFENesin E.R. 600 MG TAB PO SCH ×3 (08:53→19:36)
[2017-11-27] MEDS: INSULIN DETEMIR 100 UNITS/ML VIAL SQ SCH ×2 (08:53→20:30)
[2017-11-27] MEDS: METOPROLOL TARTRATE 25 MG TAB PO SCH ×3 (08:53→19:36)
--- NOTE | 2017-11-27 10:06 | HHI.PR ---
Subjective Subjective Notes feels bad today, does not want IR to place stent today Objective Vitals/I&O Vital Signs Date Time Temp Pulse Resp B/P (MAP) Pulse Ox O2 Delivery O2 Flow Rate FiO2 11/27/17 10:01 Room Air 2.00 11/27/17 08:00 98.5 77 20 163/69 (100) 92 Labs Laboratory Tests Test 11/27/17 09:40 Abdomen: Non-distended Narrative Exam RUQ pain, no peritonitis A/P Assessment and Plan 62yo female with newly diagnosed pancreatic carcinoma, biliary obstruction, encasing SMV/portal veins (borderline resectable vs locally advanced), stable. - recommend IR place internal metal stent tomorrow - will plan for port placement and lap [place] (for symptomatic stones and risk of infection during chemo) on Saturday will be OOT this week/weekend, back Saturday, partners covering if any acute issues, I am available by phone Elijah Jackson MD Nov 27, 2017 10:06
[2017-11-27 10:12] LABS: BACTERIA, URINE MOD /hpf; BILIRUBIN, URINE SMALL (NEG); BLOOD, URINE LARGE (NEG); GLUCOSE,URINE NEG (NEG); KETONE, URINE NEG (NEG); NITRITE,URINE NEG (NEG); PH, URINE 6.5 (5.0-8.5); SQUAMOUS EPITHELIAL CELL URINE 3 /hpf (0-5); URINE COLOR DARK-YELLOW (YELLW/STRAW); URINE LEUKOCYTE ESTERASE LARGE (NEG); WHITE BLOOD CELL CLUMPS FEW
--- NOTE | 2017-11-27 10:19 | HHI.PR ---
Subjective Remarks Follow-up Klatskin tumor/cholelithiasis/new onset diabetes and now pancreatic carcinoma 11/23/17-patient seen and examined early nothing by mouth and complaint of nausea. Also complains of poorly controlled pain and requesting her narcotics to be adjusted. EUS done yesterday 11/22/17 11/24/17-patient seen and examined; states she's had improvement of abdominal pain and denies any nausea was able to tolerate by mouth. 11/25/17-patient seen and examined, reports some abdominal discomfort this morning otherwise stable and afebrile 11/26/17-patient seen and examined, no significant abdominal pain. Was concerned about addiction to narcotics, 11/27/17-patient seen and examined,EUS biopsy positive for pancreatic carcinoma. Today patient states she's not feeling well at all and doesn't want IR placement of the biliary stent Objective Vitals Vital Signs Date Time Temp Pulse Resp B/P (MAP) Pulse Ox O2 Delivery O2 Flow Rate FiO2 11/27/17 10:01 Room Air 2.00 11/27/17 08:00 98.5 77 20 163/69 (100) 92 11/27/17 04:18 67 11/27/17 04:00 66 16 11/27/17 00:00 66 11/27/17 00:00 98.2 66 18 147/65 (92) 97 11/26/17 21:00 98.3 74 20 172/72 (105) 96 11/26/17 17:00 66 11/26/17 16:00 98.6 68 20 156/78 (104) 93 11/26/17 16:00 64 11/26/17 15:00 74 11/26/17 14:00 62 11/26/17 13:00 74 11/26/17 12:00 82 11/26/17 11:00 76 11/26/17 10:52 98.8 74 20 145/76 (99) 93 I/O 11/26/17 11/26/17 11/26/17 11/27/17 11/27/17 11/27/17 07:00 15:00 23:00 07:00 15:00 23:00 Intake Total 600 ml 330 ml 750 ml 240 ml Output Total 820 ml 550 ml 100 ml 400 ml Balance -220 ml 330 ml 200 ml 140 ml -400 ml Intake Oral 600 ml 750 ml 240 ml IV Total 330 ml Output Urine Total 800 ml 500 ml 400 ml Drainage Total 20 ml 50 ml 100 ml # Voids 2 2 # Bowel Movements 2 Result Diagram: 11/26/17 0539 Imaging Last Impressions Abdomen CT 11/21/17 0000 Signed Impressions: Service Date/Time: Wednesday, November 22, 2017 21:21 - CONCLUSION: 1. No perceptible liver mass but there is a questionable elongated low density lesion of the pancreaticoduodenal groove. 2. Internal/external biliary drainage catheters appear appropriately positioned. No extrahepatic very distention. Intrahepatic ducts appear mildly prominent. 3. Cholelithiasis. No perceptible duct stone. 4. No lymphadenopathy or other evidence of metastatic disease in the abdomen. 5. Nonspecific pleural effusions and dependent/compressive atelectasis of the visualized lung bases, right slightly worse than left. Lionel Campoverde MD Bile Duct Drainage 11/19/17 0000 Signed Impressions: Service Date/Time: Sunday, November 19, 2017 08:38 - CONCLUSION: 1. Large filling defect/mass at the confluence of the hepatic ducts extending to the very central common bile duct. This has a typical Klatskin tumor appearance. 2. Uncomplicated transhepatic percutaneous drainage catheter placement. An 8 Bahamian internal/external drain was placed. Ameya Valdez MD Liver Ultrasound 11/18/17 0000 Signed Impressions: Service Date/Time: Saturday, November 18, 2017 09:04 - CONCLUSION: 1. Extensive shadowing in the gallbladder fossa probably related to multiple gallstones. 2. Enlarged, fatty liver. 3. Probable sludge in common bile duct. Philip Mcgowan MD Chest X-Ray 11/18/17 0000 Signed Impressions: Service Date/Time: Saturday, November 18, 2017 08:35 - CONCLUSION: 1. Left lung base airspace disease, presumably atelectasis. Developing pneumonia cannot be excluded in the appropriate clinical setting. Ameya Valdez MD Objective Remarks GENERAL: NAD SKIN: Warm and dry. HEAD: Normocephalic. EYES: No scleral icterus. No injection or drainage. NECK: Supple, trachea midline. No JVD or lymphadenopathy. CARDIOVASCULAR: Regular rate and rhythm without murmurs, gallops, or rubs. RESPIRATORY: Breath sounds equal bilaterally. No accessory muscle use. GASTROINTESTINAL: Abdomen soft, non-tender, nondistended. MUSCULOSKELETAL: No cyanosis, or edema. Biliary drain in place BACK: Nontender without obvious deformity. No CVA tenderness. 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
--- NOTE | 2017-11-27 12:30 | PD.ONC.PN ---
Subjective Subjective Remarks Afebrile overnight. patient resting in bed. states she still has not decided if she wants to pursue any type of treatment for her cancer. Objective Data Date Time Temp Pulse Resp B/P (MAP) Pulse Ox O2 Delivery O2 Flow Rate FiO2 11/27/17 12:07 98.0 76 20 161/71 (101) 11/27/17 10:01 Room Air 2.00 11/27/17 08:00 98.5 77 20 163/69 (100) 92 11/27/17 04:18 67 11/27/17 04:00 66 16 11/27/17 00:00 66 11/27/17 00:00 98.2 66 18 147/65 (92) 97 11/26/17 21:00 98.3 74 20 172/72 (105) 96 11/26/17 17:00 66 11/26/17 16:00 98.6 68 20 156/78 (104) 93 11/26/17 16:00 64 11/26/17 15:00 74 11/26/17 14:00 62 11/26/17 13:00 74 11/27/17 11/27/17 11/27/17 07:00 15:00 23:00 Intake Total 240 ml Output Total 100 ml 400 ml Balance 140 ml -400 ml Result Diagram: 11/26/17 0539 Laboratory Results Laboratory Tests Test 11/27/17 09:40 Urine Color DARK-YELLOW Urine Turbidity HAZY Urine pH 6.5 Urine Specific [place] 1.013 Urine Protein 30 mg/dL Urine Glucose (UA) NEG mg/dL Urine Ketones NEG mg/dL Urine Occult Blood LARGE Urine Nitrite NEG Urine Bilirubin SMALL Urine Urobilinogen 4.0 MG/DL Urine Leukocyte Esterase LARGE Urine RBC /hpf Urine WBC /hpf Urine WBC Clumps FEW Urine Squamous Epithelial Cells 3 /hpf Urine Bacteria MOD /hpf Urine Yeast (Budding) FEW Microscopic Urinalysis Comment CULTURE INDICATED Culture Results Microbiology Date/Time Source Procedure Growth Status 11/27/17 09:40 Urine Clean Catch Urine Culture Pending Received Administered Medications Medications (Trade) Dose Ordered Sig/Kiara Route PRN Reason Start Time Stop Time Status Last Admin Dose Admin Sodium Chloride (NS Flush) 2 ml UNSCH PRN IV FLUSH FLUSH AFTER USING IV ACCESS 11/18/17 03:30 11/27/17 02:51 Sodium Chloride (NS Flush) 2 ml BID IV FLUSH 11/18/17 09:00 11/27/17 08:47 Oxycodone/ Acetaminophen (Percocet 5-325 Mg) 1 tab Q4H PRN PO PAIN SCALE 1 TO 5 11/18/17 03:30 11/27/17 11:54 Famotidine (Pepcid Inj) 20 mg Q12HR IV PUSH 11/18/17 09:00 11/27/17 08:46 Miscellaneous Information 1 Q361D XX 11/18/17 03:30 11/18/17 03:30 Chlorhexidine Gluconate (Chlorhexidine 2% Cloth) Taper DAILY@04 TOP 11/18/17 04:00 11/14/18 03:59 11/22/17 04:00 Magnesium Hydroxide (Milk Of Magnesia Liq) 30 ml Q12H PRN PO Mild constipation 11/18/17 03:30 11/21/17 06:26 Sennosides (Senokot) 17.2 mg Q12H PRN PO Moderate constipation 11/18/17 03:30 11/26/17 08:07 Bisacodyl (Dulcolax Supp) 10 mg DAILY PRN RECTAL SEVERE CONSITIPATION 11/18/17 03:30 11/21/17 06:26 Lactulose (Lactulose Liq) 30 ml DAILY PRN PO SEVERE CONSITIPATION 11/18/17 03:30 11/25/17 18:10 Labetalol HCl (Trandate Inj) 10 mg Q4H PRN IV PUSH SBP greater than 160mm Hg 11/18/17 07:00 11/20/17 18:15 Hydralazine HCl (Apresoline Inj) 10 mg Q6H PRN IV PUSH SBP >160 11/18/17 19:00 11/25/17 19:21 Ibuprofen (Motrin) 400 mg Q6H PRN PO FEVER 11/21/17 16:15 11/22/17 10:10 Ondansetron HCl (Zofran Inj) 4 mg Q4H PRN IV PUSH NAUSEA OR VOMITING 11/22/17 10:45 11/27/17 11:53 Insulin Detemir (Levemir Inj) 10 units Q12HR SQ 11/23/17 21:00 11/26/17 23:40 Metoprolol Tartrate (Lopressor) 50 mg Q12HR PO 11/23/17 21:00 11/27/17 11:56 Insulin Aspart (NovoLOG SUPPLEMENTAL SCALE) 1 ACHS SLIDING SCALE SQ 11/25/17 21:00 11/26/17 19:40 Sodium Chloride (NS Inj) 10 ml 2XWEEK IRRIGATION 11/26/17 14:00 11/26/17 20:27 Hydromorphone HCl (Dilaudid Pf Inj) 1 mg Q4H PRN IV PUSH SEVERE BREAKTHOUGH PAIN 11/26/17 19:00 11/27/17 00:17 Guaifenesin (Mucinex Er) 600 mg BID PO 11/26/17 21:00 11/27/17 11:55 Objective Remarks GENERAL: Pleasant middle aged female, sitting up in bed resting. SKIN: Warm and dry. HEAD: Normocephalic. EYES: No injection or drainage. NECK: Supple, trachea midline. CARDIOVASCULAR: Regular rate and rhythm RESPIRATORY: Breath sounds equal bilaterally. No accessory muscle use. GASTROINTESTINAL: Abdomen soft, tender in epigastrium, nondistended. EXTREMITIES: No cyanosis, or edema. MUSCULOSKELETAL: Adequate muscle tone. NEUROLOGICAL: awake and alert. normal speech. Assessment/Plan Problem List: (1) Pancreatic cancer ICD Codes: C25.9 - Malignant neoplasm of pancreas, unspecified Plan: --Renetta, surgical oncology following and recommends IR place internal metal stent tomorrow and plans for port placement and lap [place] (for symptomatic stones and risk of infection during chemo) on Saturday Pancreatobiliary adenocarcinoma, mass may be resectable. --patient is undecided on whether or how much treatment she is interested in receiving. --awaiting palliative care consult. Assessment 62y/o female with newly diagnosed pancreatic adenocarcinoma. h/o Diabetes, Osteoarthritis. Plan 1. internal metal stent placement in IR tomorrow 2. port placement and lap [place] next saturday per Dr. Jackson 3. await palliative care consult--patient is undecided about pursuing treatment. Attending Statement The exam, history, and the medical decision-making described in the above note were completed with the assistance of the mid-level provider. I reviewed and agree with the findings presented. I attest that I had a [id number] encounter with the patient on the same day, and personally performed and documented my assessment and findings in the medical record. Wants to pursue with stent placement tomorrow and Lap [place] on saturday per sug onc note patient's tumor is not resectable upfront will consider michael-adjuvant treatment, discussed with patient in detail she now wants to pursue all treatment options on going supportive care Radha Bardales Nov 27, 2017 12:30 Chavo Mitchell MD Nov 27, 2017 23:23
--- NOTE | 2017-11-27 14:09 | PD.CONS ---
Consult Service Palliative Care . Consult Requested By Dr. Mitchell . Primary Care Physician Unknown . Reason for Consultation a. To assist with evaluation and management of symptoms including: Pain, nausea, constipation b. To assist medical decision maker(s) with: better understanding of current medical conditions; weighing benefits/burdens of medical treatment options; making medical treatment decisions. . HPI History of Present Illness Ms. Polo is a 62 year-old female who lives in [place], [place]. She was admitted to [facility] for abdominal pain and nausea with a duration of 1 week. Patient was diagnosed with diabetic ketoacidosis. CT scan and MRCP revealed gallstones and a biliary obstruction as well as a cystic mass in the head of the pancreas. A HIDA scan was also concerning for common bile duct obstruction. The patient was transferred to [facility] for further evaluation and possible ERCP. Labs from outside [place] were reviewed. = WBC: 5.6, hemoglobin 11.5, hematocrit 33.8, platelets 135 = Total bilirubin: 8.9, direct bilirubin 7.34, AST 1038, ALP 1306, alkaline phosphatase 746 = Amylase: 61 = Lipase: 64 = BUN: 12, creatinine 0.37 =Sodium: 141, potassium 3.3, chloride 111, glucose 183, calcium 8.5, phosphorus 1.8, magnesium 1.8 =Total protein: 5.3, albumin 2.7 On exam, the patient reported upper quadrant pain with distention and nausea. She denied any prior history of problems with her liver, gallbladder or pancreas. U/S liver showed sludge in the common bile duct and some gallstones. There was a fatty liver. ERCP with Dr. Hickey on 11/18/2017 was unsuccessful secondary due to total obstruction, ampulla appeared distorted with ulcer and scarring. Status post biliary drain placement on 11/19/2017 with findings of large filling defect/mass at confluence hepatic ducts and extending to CBD, typical [place] tumor appearance. General surgery was consulted. Patient denied personal or familial history of GI or pancreatic cancer. She underwent CA 19-9 which was elevated at 165.4 EUS with fine-needle aspiration biopsy with Dr. Farrell on 11/22/2017 showed gallstones and a probable biliary mass, likely pancreatic. Pathology confirmed adenocarcinoma with pancreatic primary. Dr. Mitchell (medical oncology) saw the patient and recommended surgical oncology to weigh in as the mass may be resectable. Dr. Jackson (general surgery) recommended internal biliary stent placement in the upcoming days. Plan for port placement and laparoscopic cholecystectomy on 12/02/17. In conversations with medical oncology, the patient was ambiguous in terms of moving forward with any aggressive interventions stating it may affect her quality of life. She states she prefers quality over quantity. Palliative Care was consulted to assist with symptom management and to discuss with the patient/ family the benefits and burdens of her current illnesses and the options regarding future care. . Function/Cognitive Trajectory Patient was living independently and working prior to this hospitalization and recent diagnosis of pancreatic adenocarcinoma. . Review of Systems Constitutional: COMPLAINS OF: Weight loss, Change in appetite (Decreased appetite), Generalized weakness Ears, nose, mouth, throat: DENIES: Oral lesions Respiratory: DENIES: Shortness of breath Gastrointestinal: COMPLAINS OF: Abdominal pain, Constipation Hematologic/Lymphatics: COMPLAINS OF: Bruising Past Family Social History Coded Allergies: metoclopramide (Unverified Allergy, Mild, 11/18/17) Past Medical History Diabetes Osteoarthritis Bursitis . Past Surgical History Hysterectomy . Reported Medications No reported medications . Current Medications Medications (Trade) Dose Ordered Sig/Kiara Route Start Time Stop Time Status Last Admin (NS Flush) 2 ml UNSCH PRN IV FLUSH 11/18/17 03:30 11/27/17 02:51 (NS Flush) 2 ml BID IV FLUSH 11/18/17 09:00 11/27/17 08:47 (Percocet 5-325 Mg) 1 tab Q4H PRN PO 11/18/17 03:30 11/27/17 11:54 (Pepcid Inj) 20 mg Q12HR IV PUSH 11/18/17 09:00 11/27/17 08:46 (Duoneb Neb) 1 ampule Q4HR NEB PRN INH 11/18/17 03:30 Miscellaneous Information 1 Q361D XX 11/18/17 03:30 11/18/17 03:30 (Chlorhexidine 2% Cloth) Taper DAILY@04 TOP 11/18/17 04:00 11/14/18 03:59 11/22/17 04:00 (Chlorhexidine 2% Cloth) 3 pack UNSCH PRN TOP 11/18/17 03:30 (Milk Of Magnesia Liq) 30 ml Q12H PRN PO 11/18/17 03:30 11/21/17 06:26 (Senokot) 17.2 mg Q12H PRN PO 11/18/17 03:30 11/26/17 08:07 (Dulcolax Supp) 10 mg DAILY PRN RECTAL 11/18/17 03:30 11/21/17 06:26 (Lactulose Liq) 30 ml DAILY PRN PO 11/18/17 03:30 11/25/17 18:10 (Trandate Inj) 10 mg Q4H PRN IV PUSH 11/18/17 07:00 11/20/17 18:15 (K-Lyte Cl Eff) 50 meq UNSCH PRN PO 11/18/17 08:30 (Apresoline Inj) 10 mg Q6H PRN IV PUSH 11/18/17 19:00 11/25/17 19:21 (Motrin) 400 mg Q6H PRN PO 11/21/17 16:15 11/22/17 10:10 (Zofran Inj) 4 mg Q4H PRN IV PUSH 11/22/17 10:45 11/27/17 11:53 (Phenergan Inj) 12.5 mg Q4H PRN IM 11/23/17 11:30 (Levemir Inj) 10 units Q12HR SQ 11/23/17 21:00 11/26/17 23:40 (Lopressor) 50 mg Q12HR PO 11/23/17 21:00 11/27/17 11:56 (D50w (Vial) Inj) 50 ml UNSCH PRN IV PUSH 11/25/17 18:30 (Glucagon Inj) 1 mg UNSCH PRN OTHER 11/25/17 18:30 (NovoLOG SUPPLEMENTAL SCALE) 1 ACHS SLIDING SCALE SQ 11/25/17 21:00 11/26/17 19:40 (Percocet 7.5-325 Mg) 1 tab Q4H PRN PO 11/26/17 11:00 (NS Inj) 10 ml 2XWEEK IRRIGATION 11/26/17 14:00 11/26/17 20:27 (Dilaudid Pf Inj) 1 mg Q4H PRN IV PUSH 11/26/17 19:00 11/27/17 00:17 (Mucinex Er) 600 mg BID PO 11/26/17 21:00 11/27/17 11:55 . Family History Patient's mother in her late 80s from an [place]. . Substance Use Tobacco: Smokes smoking history, quit approximately 30 years ago. Alcohol: Patient denies Prescription med abuse: Patient denies Illicits: Patient denies . Psychosocial History Patient moved to [place], [place] when she was around 12 years old. Patient has 1 brother, Edwardo, who lives locally. Her mother is and her father is alive and well, living independently nearby. Patient is ; she has no children. She works at a [employer]. 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 . Spiritual/Cultural Factors Spiritual; does not practice organized zoroastrianism. . Today's verbally stated goals: Goals are unclear at this time. Patient is waiting to gather more information about treatment options stating quality of life is more important to her and the quantity. . Family/friends goals: No family present. . Ethical and Legal Issues Per [place] statutes, in the absence of written advanced directives healthcare proxy decision making would fall to the patient's father. . Physical Exam Vital Signs Date Time Temp Pulse Resp B/P (MAP) Pulse Ox O2 Delivery O2 Flow Rate FiO2 11/27/17 12:07 98.0 76 20 161/71 (101) 11/27/17 10:01 Room Air 2.00 11/27/17 08:00 98.5 77 20 163/69 (100) 92 11/27/17 04:18 67 11/27/17 04:00 66 16 11/27/17 00:00 66 11/27/17 00:00 98.2 66 18 147/65 (92) 97 11/26/17 21:00 98.3 74 20 172/72 (105) 96 11/26/17 17:00 66 11/26/17 16:00 98.6 68 20 156/78 (104) 93 11/26/17 16:00 64 11/26/17 15:00 74 11/26/17 14:00 62 . 11/27/17 11/28/17 19:00 07:00 Output Total 400 ml Balance -400 ml Output Urine Total 400 ml . Exam CONSTITUTIONAL/GENERAL: This is an adequately nourished patient, in no apparent distress. TUBES/LINES/DRAINS: PIV, biliary drain SKIN: Jaundice. Ecchymoses on upper extremities. Skin temperature appropriate. Not diaphoretic. HEAD: Atraumatic. Normocephalic. EYES: Pupils equal and round and reactive. Extraocular motions intact. + scleral icterus. No injection or drainage. Fundi not examined. ENT: Hearing grossly normal. Nose without bleeding or purulent drainage. Oral mucosa is dry NECK: Trachea midline. Supple, nontender. No palpable thyroid enlargement or nodularity. CARDIOVASCULAR: Regular rate and rhythm without murmurs, gallops, or rubs. No JVD. Peripheral pulses symmetric. RESPIRATORY/CHEST: Symmetric, unlabored respirations. Clear to auscultation. Breath sounds equal bilaterally. No wheezes, rales, or rhonchi. GASTROINTESTINAL: Abdomen is tender to palpation. Biliary catheter draining without difficulties. Bowel sounds active 4 quadrants. GENITOURINARY: Without palpable bladder distension. MUSCULOSKELETAL: Extremities without clubbing, cyanosis, or edema. No obvious deformities no mottling or clubbing. LYMPHATICS: No palpable cervical or supraclavicular adenopathy. NEUROLOGICAL: Awake and alert. Motor and sensory grossly within normal limits. Follows commands. Cognitively sharp. Moves all extremities. PSYCHIATRIC: No obvious anxiety/depression. no apparent hallucinations or other psychotic thought process. . Diagnostic Tests Laboratory Laboratory Tests Test 11/25/17 06:17 11/26/17 05:39 11/27/17 09:40 Blood Urea Nitrogen 4 MG/DL (7-18) 1 MG/DL (7-18) Creatinine 0.61 MG/DL (0.50-1.00) 0.52 MG/DL (0.50-1.00) Random Glucose 173 MG/DL (74-106) 177 MG/DL (74-106) Calcium Level 8.4 MG/DL (8.5-10.1) 8.1 MG/DL (8.5-10.1) Sodium Level 132 MEQ/L (136-145) 135 MEQ/L (136-145) Potassium Level 3.2 MEQ/L (3.5-5.1) 3.6 MEQ/L (3.5-5.1) Chloride Level 95 MEQ/L (98-107) 98 MEQ/L (98-107) Carbon Dioxide Level 28.6 MEQ/L (21.0-32.0) 27.0 MEQ/L (21.0-32.0) Anion Gap 8 MEQ/L (5-15) 10 MEQ/L (5-15) Estimat Glomerular Filtration Rate 100 ML/MIN (>89) 120 ML/MIN (>89) Total Protein 6.2 GM/DL (6.4-8.2) Albumin 2.0 GM/DL (3.4-5.0) Alkaline Phosphatase 431 U/L (45-117) Aspartate Amino Transf (AST/SGOT) 42 U/L (15-37) Alanine Aminotransferase (ALT/SGPT) 173 U/L (10-53) Total Bilirubin 4.1 MG/DL (0.2-1.0) Urine Color DARK-YELLOW (YELLW/STRAW) Urine Turbidity HAZY (CLEAR) Urine pH 6.5 (5.0-8.5) Urine Specific [place] 1.013 (1.002-1.035) Urine Protein 30 mg/dL (NEG-TRACE) Urine Glucose (UA) NEG mg/dL (NEG) Urine Ketones NEG mg/dL (NEG) Urine Occult Blood LARGE (NEG) Urine Nitrite NEG (NEG) Urine Bilirubin SMALL (NEG) Urine Urobilinogen 4.0 MG/DL (LESS THAN Urine Leukocyte Esterase LARGE (NEG) Urine RBC /hpf (0-3) Urine WBC /hpf (0-5) Urine WBC Clumps FEW (NONE) Urine Squamous Epithelial Cells 3 /hpf (0-5) Urine Bacteria MOD /hpf (NONE) Urine Yeast (Budding) FEW (NONE) Microscopic Urinalysis Comment CULTURE INDICATED . Result Diagram: 11/26/17 0539 Microbiology Microbiology Date/Time Source Procedure Growth Status 11/27/17 09:40 Urine Clean Catch Urine Culture Pending Received . Patient/Family Conference Present at Family Conference: Spoke with patient at bedside. . Family Conference Location: Bedside Issues Discussed: * Palliative care role, purpose, approach * Additional medical, psychosocial, and spiritual history * Patients general health, functional status, and cognitive changes in the months leading up to the current hospitalization * Patient/family understanding of the current medical problems * Patient/family understanding of prognosis * Patients goals of care as best understood from advance directives and/or conversations and/or values * Current medical treatment options and benefits/burdens of those options * Likely scenarios comparing ongoing aggressive care with a transition to comfort measures only * Questions answered to the best of my ability * Palliative care contact information provided . Assessment and Plan Disease Oriented Problem List: (1) Diabetes (2) Cholelithiasis (3) Hypertension (4) Elevated LFTs (5) Pancreatic cancer Symptom Scale: (1) Pain (2) Nausea (3) Constipation Pertinent Non-Medical Issues Psychosocial: Patient moved to [place], [place] when she was around 12 years old. Patient has 1 brother, Edwardo, who lives locally. Her mother is and her father is alive and well, living independently nearby. Patient is ; she has no children. She works at a [employer]. 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 Spiritual: Patient defines herself as "spiritual" Legal: Per [place] statutes, in the absence of written advanced directives healthcare proxy decision making falls to the patient's father Ethical issues impacting care: No known ethical issues impacting care. . Important Contacts Jarett Polo, father: [phone] Edwardo Polo, brother: [phone] . Prognosis Patient is a 62 yo female with newly diagnosed pancreatic adenocarcinoma. General surgery is uncertain if the mass is resectable at this time; patient has not yet decided if she wants to proceed with aggressive interventions. Plan for internal biliary stent placement tomorrow and port placement with cholecystectomy on 12/02/2017. Patient will make a decision whether she wishes to proceed with more complex surgery after Saturday. . Code Status: Full Code Plan * FULL CODE * Decision-making: Patient currently has good insight and judgment related to her medical condition. She understands that per [place] statutes, in the absence of written advanced directives healthcare proxy is decision making will follow to her father. We discussed written advanced directives and healthcare surrogate designation. Forms left at bedside; palliative care will meet with patient tomorrow to discuss further. * Goals are unclear at this time. Patient is waiting to gather more information about treatment options stating quality of life is more important to her and the quantity. * Discussed patient with bedside nurse and Radha Bardales (oncology PA) * Palliative care contact information was provided to the patient * Symptom management: = Pain: Multifactoral; contributing factors include invasive lines, tumor burden, cholelithiasis, CBD obstruction, abdominal distention, constipation. Patient reports intermittent abdominal pain that varies in location and characteristic. She currently has Percocet 5-325mg tablet for pain rated 1-5 and 7.5-325mg tablet q4 hours PRN for pain rated 6-10. Hydromorphone 1mg IV every 4 hours for severe breakthrough pain. 24 hour PRN dose = Percocet (5-325mg tablet) 4 and Hydromorphone 1 mg IV 1 = Constipation: Patient is high risk for constipation secondary to low oral intake, impaired mobility, opioid analgesics and tumor burden. LBM: 11/27/2017, soft. Current orders for PRN Milk of magnesia, Senokot, Dulcolax suppository and Lactulose. Educated the patient on factors that may contribute to constipation as well as the goal that the patient will have a BM every 3 days. = Nausea: Patient reports "waves of nausea." She is unable to identify exacerbating factors. She has orders for PRN Phenergan IM and IV Zofran. Patient has received 4 doses of Zofran in the past 24 hours. * Palliative care will continue to follow this patient throughout her hospitalization to establish trust, assist with symptom management and clarification of medical treatment goals . Thank you for the opportunity to participate in the care of Ms. Polo. . Attestation To help prompt me to consider important information that might be impacting today's encounter and assessment, information from prior notes written by myself or my colleagues may have been "brought forward" into today's note. My signature on this note, however, is an attestation that I personally performed the exam, history, and/or decision-making noted today, and, unless otherwise indicated, the interactions with patient, family, and staff as well as the review of records all occurred today. I also attest that the listed assessment and stated plan reflect my best clinical judgment today based on the combination of historical information, prior notes, and today's exam/ interactions. When time spent is documented, it refers only to time spent today by the signer, or if indicated, combined time spent today by collaborating physician/nurse practitioner. . Hansa Padilla Nov 27, 2017 14:09
--- NOTE | 2017-11-27 16:20 | HHI.GIFU ---
Subjective Remarks Pt OOB to chair. Will proceed with stenting & lap [place] & port placement and then decide about resection of mass if poss. (Hortencia Chen) Objective Vitals I&O Vital Signs Date Time Temp Pulse Resp B/P (MAP) Pulse Ox O2 Delivery O2 Flow Rate FiO2 11/27/17 16:07 98.6 63 20 162/72 (102) 96 11/27/17 12:07 98.0 76 20 161/71 (101) 11/27/17 10:01 Room Air 2.00 11/27/17 08:00 98.5 77 20 163/69 (100) 92 11/27/17 04:18 67 11/27/17 04:00 66 16 11/27/17 00:00 66 11/27/17 00:00 98.2 66 18 147/65 (92) 97 11/26/17 21:00 98.3 74 20 172/72 (105) 96 11/26/17 17:00 66 I/O 11/26/17 11/26/17 11/26/17 11/27/17 11/27/17 11/27/17 07:00 15:00 23:00 07:00 15:00 23:00 Intake Total 600 ml 330 ml 750 ml 240 ml Output Total 820 ml 550 ml 100 ml 400 ml Balance -220 ml 330 ml 200 ml 140 ml -400 ml Intake Oral 600 ml 750 ml 240 ml IV Total 330 ml Output Urine Total 800 ml 500 ml 400 ml Drainage Total 20 ml 50 ml 100 ml # Voids 2 2 # Bowel Movements 2 Laboratory Laboratory Tests Test 11/27/17 09:40 Urine Color DARK-YELLOW Urine Turbidity HAZY Urine pH 6.5 Urine Specific [place] 1.013 Urine Protein 30 Urine Glucose (UA) NEG Urine Ketones NEG Urine Occult Blood LARGE Urine Nitrite NEG Urine Bilirubin SMALL Urine Urobilinogen 4.0 Urine Leukocyte Esterase LARGE Urine RBC Urine WBC Urine WBC Clumps FEW Urine Squamous Epithelial Cells 3 Urine Bacteria MOD Urine Yeast (Budding) FEW Microscopic Urinalysis Comment CULTURE INDICATED Date/Time Source Procedure Growth Status 11/27/17 09:40 Urine Clean Catch Urine Culture Pending Received Imaging Last Impressions Abdomen CT 11/21/17 0000 Signed Impressions: Service Date/Time: Wednesday, November 22, 2017 21:21 - CONCLUSION: 1. No perceptible liver mass but there is a questionable elongated low density lesion of the pancreaticoduodenal groove. 2. Internal/external biliary drainage catheters appear appropriately positioned. No extrahepatic very distention. Intrahepatic ducts appear mildly prominent. 3. Cholelithiasis. No perceptible duct stone. 4. No lymphadenopathy or other evidence of metastatic disease in the abdomen. 5. Nonspecific pleural effusions and dependent/compressive atelectasis of the visualized lung bases, right slightly worse than left. Lionel Campoverde MD Bile Duct Drainage 11/19/17 0000 Signed Impressions: Service Date/Time: Sunday, November 19, 2017 08:38 - CONCLUSION: 1. Large filling defect/mass at the confluence of the hepatic ducts extending to the very central common bile duct. This has a typical Klatskin tumor appearance. 2. Uncomplicated transhepatic percutaneous drainage catheter placement. An 8 Hebrew internal/external drain was placed. Ameya Valdez MD Liver Ultrasound 11/18/17 0000 Signed Impressions: Service Date/Time: Saturday, November 18, 2017 09:04 - CONCLUSION: 1. Extensive shadowing in the gallbladder fossa probably related to multiple gallstones. 2. Enlarged, fatty liver. 3. Probable sludge in common bile duct. Philip Mcgowan MD Chest X-Ray 11/18/17 0000 Signed Impressions: Service Date/Time: Saturday, November 18, 2017 08:35 - CONCLUSION: 1. Left lung base airspace disease, presumably atelectasis. Developing pneumonia cannot be excluded in the appropriate clinical setting. Ameya Valdez MD Physical Exam HEENT: Normocephalic; atraumatic; +icterus CHEST: CTA CARDIAC: RRR ABDOMEN: mildly Distended,soft, mild epigastric TTP less than before, bowel sounds active EXTREMITIES: No clubbing, cyanosis,+BLE edema SKIN: (+) mild jaundice. ENERGY MANAGER: No focal deficits; alert and oriented times three. (Hortencia Chen UTILIZATION ENGINEER) Assessment and Plan Plan ASSESSMENT - abd pain, jaundice, elevated LFTs - LFTs elevated obstructive pattern, upper quadrant pain, nausea. choledocholithiasis vs cystic obstruction CBD CT 11/15 showed cholelithiasis, poss cyst pancreatic head, MRCP 11/16 showed cystic mass, HIDA 11/17 suggestive CBD obstruction. WBC is WNL - ?ascites - abd soft and distended. liver US is pending. 11/19/17 liver US showed prob sludge CBD, prob gallstones, fatty liver. Not much change LFTs. s/p unsuccessful ERCP - ampulla distorted with ulcer and scarring. 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 CA 19-9 elevated 165. GS consult pending. pt noncontributory today. (11/21) Pt reports continued abdominal pain and distention, some relief with BM today after multiple days of no BM. GS also recommending EUS with biopsy as well as CT scan pancreatic protocol. LFTs continue to trend down today. 11/23/17, appears to be having a bad morning increased upper abdominal pressure radiating into the left and right side. Feels pain management is ineffective. Labs mildly improved with bilirubin 3.9, AST 42, ALT 368, alkaline phosphatase 627. Nausea uncontrolled Continues to have drainage from right sided biliary tube, EUS done on 11/22/[address] Farrell, Probable biliary mass possibly pancreatic, biopsies are pending, gallstones 11/24/17 doing better, less pain. tolerating diet. bx still pending 11/25/17 bx still pending. pain managed. tolerating diet. 11/26/17 up and moving today, pain improving. d/w GS, still awaiting path 11/27/17 path adenocarcinoma. oncology following plans for port placement. will get stent from IR. poss racheal [place] saturday. PLAN - further mgmt per oncology and surgical oncology - supportive care - GI will sign off. please reconsult if needed Pt has been seen and examined by myself and and myself and this note is on her behalf (Hortencia Chen) Hortencia Chen Nov 27, 2017 16:20 Landy Broussard MD Nov 27, 2017 19:32
[2017-11-28] VITALS (16 sets, daily range): BP systolic 140–185; BP diastolic 70–98; PULSE 58–78; RESP 16–20; TEMP 97.7–98.9; O2SAT 93–96
[2017-11-28] MEDS: ONDANSETRON HCL 4 MG/2 ML VIAL IV PUSH PRN ×5 (00:26→20:38)
[2017-11-28] MEDS: HYDROmorphone HCL PF 2 MG/ML VIAL IV PUSH PRN ×5 (00:27→20:39)
[2017-11-28] MEDS: CHLORHEXIDINE GLUCONATE 2 % 1 PACK (2 CLOTHS) TOP SCH (04:00)
[2017-11-28] MEDS: INSULIN ASPART SUPPLEMENTAL SCALE SQ SCH ×4 (08:00→20:40)
[2017-11-28] MEDS: INSULIN DETEMIR 100 UNITS/ML VIAL SQ SCH ×2 (09:00→20:40)
[2017-11-28] MEDS: guaiFENesin E.R. 600 MG TAB PO SCH ×2 (09:04→20:39)
[2017-11-28] MEDS: METOPROLOL TARTRATE 25 MG TAB PO SCH ×2 (09:04→20:39)
[2017-11-28] MEDS: FAMOTIDINE 20 MG/2 ML VIAL IV PUSH SCH ×2 (09:04→20:39)
[2017-11-28] MEDS: SODIUM CHLORIDE 0.9% FLUSH 10 ML FLUSH IV FLUSH SCH ×2 (09:05→20:39)
--- NOTE | 2017-11-28 10:29 | HHI.PR ---
Subjective Remarks Follow-up Klatskin tumor/cholelithiasis/new onset diabetes and now pancreatic carcinoma 11/23/17-patient seen and examined early nothing by mouth and complaint of nausea. Also complains of poorly controlled pain and requesting her narcotics to be adjusted. EUS done yesterday 11/22/17 11/24/17-patient seen and examined; states she's had improvement of abdominal pain and denies any nausea was able to tolerate by mouth. 11/25/17-patient seen and examined, reports some abdominal discomfort this morning otherwise stable and afebrile 11/26/17-patient seen and examined, no significant abdominal pain. Was concerned about addiction to narcotics, 11/27/17-patient seen and examined,EUS biopsy positive for pancreatic carcinoma. Today patient states she's not feeling well at all and doesn't want IR placement of the biliary stent 11/28/17-patient seen and examined, again states she's not feeling well today and thinks her biliary stent is working Objective Vitals Vital Signs Date Time Temp Pulse Resp B/P (MAP) Pulse Ox O2 Delivery O2 Flow Rate FiO2 11/28/17 07:15 98.3 67 18 144/83 (103) 94 11/28/17 06:04 16 11/28/17 04:53 98.5 73 20 175/78 (110) 96 11/28/17 04:11 65 11/28/17 00:57 16 11/28/17 00:32 98.6 62 16 140/71 (94) 94 11/28/17 00:11 68 11/27/17 21:15 18 11/27/17 20:30 Room Air 11/27/17 20:00 66 11/27/17 19:45 98.7 65 20 163/73 (103) 93 11/27/17 16:07 98.6 63 20 162/72 (102) 96 11/27/17 12:07 98.0 76 20 161/71 (101) I/O 11/27/17 11/27/17 11/27/17 11/28/17 11/28/17 11/28/17 06:59 14:59 22:59 06:59 14:59 22:59 Intake Total 240 ml 480 ml Output Total 100 ml 400 ml 1610 ml 1420 ml Balance 140 ml -400 ml -1130 ml -1420 ml Intake Oral 240 ml 480 ml Output Urine Total 400 ml 1250 ml 900 ml Gastric Drainage Total 360 ml Drainage Total 100 ml 520 ml # Voids 2 Result Diagram: 11/26/17 0539 Imaging Last Impressions Abdomen CT 11/21/17 0000 Signed Impressions: Service Date/Time: Wednesday, November 22, 2017 21:21 - CONCLUSION: 1. No perceptible liver mass but there is a questionable elongated low density lesion of the pancreaticoduodenal groove. 2. Internal/external biliary drainage catheters appear appropriately positioned. No extrahepatic very distention. Intrahepatic ducts appear mildly prominent. 3. Cholelithiasis. No perceptible duct stone. 4. No lymphadenopathy or other evidence of metastatic disease in the abdomen. 5. Nonspecific pleural effusions and dependent/compressive atelectasis of the visualized lung bases, right slightly worse than left. Lionel Campoverde MD Bile Duct Drainage 11/19/17 0000 Signed Impressions: Service Date/Time: Sunday, November 19, 2017 08:38 - CONCLUSION: 1. Large filling defect/mass at the confluence of the hepatic ducts extending to the very central common bile duct. This has a typical Kl[place]kin tumor appearance. 2. Uncomplicated transhepatic percutaneous drainage catheter placement. An 8 [place] internal/external drain was placed. Ameya Valdez MD Liver Ultrasound 11/18/17 0000 Signed Impressions: Service Date/Time: Saturday, November 18, 2017 09:04 - CONCLUSION: 1. Extensive shadowing in the gallbladder fossa probably related to multiple gallstones. 2. Enlarged, fatty liver. 3. Probable sludge in common bile duct. Philip Mcgowan MD Chest X-Ray 11/18/17 0000 Signed Impressions: Service Date/Time: Saturday, November 18, 2017 08:35 - CONCLUSION: 1. Left lung base airspace disease, presumably atelectasis. Developing pneumonia cannot be excluded in the appropriate clinical setting. Ameya Valdez MD Objective Remarks GENERAL: NAD however with depressed mood SKIN: Warm and dry. HEAD: Normocephalic. EYES: No scleral icterus. No injection or drainage. NECK: Supple, trachea midline. No JVD or lymphadenopathy. CARDIOVASCULAR: Regular rate and rhythm without murmurs, gallops, or rubs. RESPIRATORY: Breath sounds equal bilaterally. No accessory muscle use. GASTROINTESTINAL: Abdomen soft, non-tender, nondistended. MUSCULOSKELETAL: No cyanosis, or edema. Biliary drain in place BACK: Nontender without obvious deformity. No CVA tenderness. 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
[2017-11-28] MEDS ORDERED: MIDAZOLAM HCL 2 MG/2 ML VIAL ONE ×2 (13:14→13:58)
[2017-11-28] MEDS ORDERED: fentaNYL CITRATE 250 MCG/5 ML AMP ONE (13:14)
[2017-11-28] MEDS ORDERED: PROCHLORPERAZINE INJ 10 MG/2 ML VIAL IV PUSH PRN (14:00)
--- NOTE | 2017-11-28 14:09 | PD.RAD ---
Post Procedure Progress Note Pre Procedure Diagnosis: (1) Pancreatic cancer Post Procedure Diagnosis: (1) Pancreatic cancer Procedure Date: Nov 28, 2017 Supervising Radiologist: Ameya Valedz Proceduralist/Assist: London Lindo, RT(R), Josefa Flores RT(R) Anesthesia: Conscious Sedation Plan of Activity Patient to Unit: ROPU Patient Condition: Good See PACS Report for procedural detail/treatment Ameya Valdez MD Nov 28, 2017 14:09
--- NOTE | 2017-11-28 14:14 | PD.ONC.PN ---
Subjective Subjective Remarks Afebrile Patient reports the Percocet gives her a "wet cough" Denies any shortness of breath Reports she is not coughing anything up and has "never been able to cough up any phlegm her whole life" Currently having some abdominal pain has just asked for some IV Dilaudid Objective Data Date Time Temp Pulse Resp B/P (MAP) Pulse Ox O2 Delivery O2 Flow Rate FiO2 11/28/17 11:05 98.0 61 18 158/74 (102) 93 11/28/17 07:15 98.3 67 18 144/83 (103) 94 11/28/17 06:04 16 11/28/17 04:53 98.5 73 20 175/78 (110) 96 11/28/17 04:11 65 11/28/17 00:57 16 11/28/17 00:32 98.6 62 16 140/71 (94) 94 11/28/17 00:11 68 11/27/17 21:15 18 11/27/17 20:30 Room Air 11/27/17 20:00 66 11/27/17 19:45 98.7 65 20 163/73 (103) 93 11/27/17 16:07 98.6 63 20 162/72 (102) 96 11/28/17 11/28/17 11/28/17 07:00 15:00 23:00 Output Total 1420 ml Balance -1420 ml Result Diagram: 11/26/17 0539 Culture Results Microbiology Date/Time Source Procedure Growth Status 11/27/17 09:40 Urine Clean Catch Urine Culture - Preliminary Staphylococcus Aureus Resulted Administered Medications Medications (Trade) Dose Ordered Sig/Kiara Route PRN Reason Start Time Stop Time Status Last Admin Dose Admin Sodium Chloride (NS Flush) 2 ml UNSCH PRN IV FLUSH FLUSH AFTER USING IV ACCESS 11/18/17 03:30 11/27/17 02:51 Sodium Chloride (NS Flush) 2 ml BID IV FLUSH 11/18/17 09:00 11/28/17 09:05 Famotidine (Pepcid Inj) 20 mg Q12HR IV PUSH 11/18/17 09:00 11/28/17 09:04 Miscellaneous Information 1 Q361D XX 11/18/17 03:30 11/18/17 03:30 Chlorhexidine Gluconate (Chlorhexidine 2% Cloth) Taper DAILY@04 TOP 11/18/17 04:00 11/14/18 03:59 11/22/17 04:00 Magnesium Hydroxide (Milk Of Magnesia Liq) 30 ml Q12H PRN PO Mild constipation 11/18/17 03:30 11/21/17 06:26 Sennosides (Senokot) 17.2 mg Q12H PRN PO Moderate constipation 11/18/17 03:30 11/26/17 08:07 Bisacodyl (Dulcolax Supp) 10 mg DAILY PRN RECTAL SEVERE CONSITIPATION 11/18/17 03:30 11/21/17 06:26 Lactulose (Lactulose Liq) 30 ml DAILY PRN PO SEVERE CONSITIPATION 11/18/17 03:30 11/25/17 18:10 Labetalol HCl (Trandate Inj) 10 mg Q4H PRN IV PUSH SBP greater than 160mm Hg 11/18/17 07:00 11/20/17 18:15 Hydralazine HCl (Apresoline Inj) 10 mg Q6H PRN IV PUSH SBP >160 11/18/17 19:00 11/25/17 19:21 Ibuprofen (Motrin) 400 mg Q6H PRN PO FEVER 11/21/17 16:15 11/22/17 10:10 Ondansetron HCl (Zofran Inj) 4 mg Q4H PRN IV PUSH NAUSEA OR VOMITING 11/22/17 10:45 11/28/17 11:36 Insulin Detemir (Levemir Inj) 10 units Q12HR SQ 11/23/17 21:00 11/27/17 20:30 Metoprolol Tartrate (Lopressor) 50 mg Q12HR PO 11/23/17 21:00 11/28/17 09:04 Insulin Aspart (NovoLOG SUPPLEMENTAL SCALE) 1 ACHS SLIDING SCALE SQ 11/25/17 21:00 11/27/17 20:30 Sodium Chloride (NS Inj) 10 ml 2XWEEK IRRIGATION 11/26/17 14:00 11/26/17 20:27 Hydromorphone HCl (Dilaudid Pf Inj) 1 mg Q4H PRN IV PUSH SEVERE BREAKTHOUGH PAIN 11/26/17 19:00 11/28/17 11:36 Guaifenesin (Mucinex Er) 600 mg BID PO 11/26/17 21:00 11/28/17 09:04 Objective Remarks GENERAL: Fatigued appearing older female resting in bed no obvious distress SKIN: Warm and dry. Jaundiced HEAD: Normocephalic. EYES: No injection or drainage. NECK: Supple, trachea midline. CARDIOVASCULAR: Regular rate and rhythm without murmurs. RESPIRATORY: Clear anteriorly. GASTROINTESTINAL: Abdomen soft. Mildly tender to epigastric area EXTREMITIES: No cyanosis, or edema. MUSCULOSKELETAL: Adequate muscle tone. NEUROLOGICAL: No obvious focal deficit. Awake, alert, and oriented x3. 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 --patient is undecided on whether or how much treatment she is interested in receiving. --awaiting palliative care consult. Assessment 62y/o female with newly diagnosed pancreatic adenocarcinoma. h/o Diabetes, Osteoarthritis. Plan 1. Patient getting internal metal stent today 2. Patient complaining of Percocet. I will switch this out for [place] to see if she tolerates this better 3. Port will be placed on Saturday as she has now decided she wants chemotherapy 4. Supportive care India Lehman Nov 28, 2017 14:14
[2017-11-28] MEDS ORDERED: IOHEXOL 350 MG/ML 50 ML BTL (for RAD DIAG) OTHER ONE (14:29)
[2017-11-28] MEDS ORDERED: PIPERACIL-TAZO 3.375 GM PREMIX 50 ML IV SCH (14:30)
--- NOTE | 2017-11-28 15:00 | RADRPT ---
EXAM DATE/TIME: 11/28/2017 13:34 COMPARISON: BILIARY DRAINAGE W STENT PLACE, November 19, 2017, 8:38. INDICATIONS : 62-year-old female with history of pancreatic adenocarcinoma and biliary obstruction status post bili chuyita drainage catheter placement. Patient is now on hospice and biliary stent placement is requested. MEDICAL HISTORY : DM SURGICAL HISTORY : Hysterectomy ENCOUNTER: Subsequent ACUITY: 1 week PAIN SCORE: 7/10 LOCATION: Bilateral lower quadrant FLUORO TIME: 6.2 minutes IMAGE SERIES: 0 SEDATION TIME: 30 minutes CONTRAST: 30 cc Omnipaque (iohexol) 350 MEDICATION(S): 1.) 4.5 mg midazolam (Versed) IV 2.) 275 mcg fentanyl (Sublimaze) IV DEVICE(S): 1.) 8mm x80mm 120cm stent (self expanding) PROCEDURES PERFORMED: 1. Percutaneous antegrade cholangiogram. 2. Metallic biliary stent placement. 3. Conscious sedation with continuous EKG and oximetry monitoring. FINDINGS: The risks, benefits and alternatives to the procedure were explained and verbal and written consent w as obtained. The site was prepped in sterile fashion. Full sterile technique was used, including cap, mask, sterile gloves and gown and a large sterile sheet. Hand hygiene and 2% chlorhexidine and/or be tadine/alcohol prep was utilized per protocol for cutaneous antisepsis. Sterile gel and sterile probe cover were utilized for ultrasound guidance. The skin and subcutaneous tissues were infiltrated with local anesthetic solution. Contrast injected through the existing biliary catheter demonstrated occlusion of the proximal to mid common bile duct. Catheter was then removed over a Glidewire. Upon removal of the catheter small steven unt of odorous purulent fluid was drained from the incision site (approximately 10 ml). Therefore, th e incision site was extended slightly and soft tissues aggressively irrigated. Next, a [address] was placed into the central bile duct. Distance was subsequently calculated with a marking pigtai l catheter and an 8 x 80 mm self-expanding stent was deployed and subsequently dilated with 8 mm ball oon. There was brisk flow through the biliary stent on followup contrast injections. Difficul wires a nd catheters were removed. Sheath was removed. Conscious sedation was performed with the prescribed dosages and duration as above in the presence of an independent trained radiology nurse to assist in the monitoring of the patient. EKG and oximetry remained stable throughout the procedure. The patient tolerated the procedure well and there were no complications. The patient was sent to post anesthesia recovery in stable condition. CONCLUSION: 1. Uncomplicated placement of 8mm metallic common bile duct stent. 2. Small incisional abscess at the prior biliary drainage site. This was aggressively irrigated. Will request antibiotic coverage. Small sample was cemented for culture. Ameya Valdez MD on November 28, 2017 at 14:51 Board Certified Radiologist. This report was verified electronically.
[2017-11-28] MEDS: hydrALAZINE HCL 20 MG/ML VIAL IV PUSH PRN (16:55)
[2017-11-28] MEDS: ACETAMINOPHEN/HYDROcodone 325 MG/7.5 MG TAB PO PRN ×2 (16:56→23:32)
[2017-11-28] MEDS: PIPERACIL-TAZO 3.375 GM PREMIX 50 ML IV SCH ×2 (17:14→23:24)
[2017-11-29] VITALS (21 sets, daily range): BP systolic 146–185; BP diastolic 67–80; PULSE 63–86; RESP 16–22; TEMP 97–98.8; O2SAT 95–99
[2017-11-29] MEDS: ONDANSETRON HCL 4 MG/2 ML VIAL IV PUSH PRN ×4 (02:17→22:39)
[2017-11-29] MEDS: CHLORHEXIDINE GLUCONATE 2 % 1 PACK (2 CLOTHS) TOP SCH (03:03)
[2017-11-29] MEDS: PIPERACIL-TAZO 3.375 GM PREMIX 50 ML IV SCH ×3 (06:40→22:39)
[2017-11-29 06:46] LABS: AUTOMATED NEUTROPHIL # 8.1 TH/MM3 (1.8-7.7); BASOPHIL % 0.3 % (0.0-2.0); EOSINOPHIL # 0.1 TH/MM3 (0-0.4); EOSINOPHIL % 0.9 % (0.0-4.0); HEMATOCRIT 29.1 % (35.0-46.0); HEMOGLOBIN 9.8 GM/DL (11.6-15.3); LYMPH % 13.9 % (9.0-44.0); LYMPHOCYTE # 1.4 TH/MM3 (1.0-4.8); MEAN CELL VOLUME 85.6 FL (80.0-100.0); MEAN CORPUSCULAR HEMOGLOBIN 28.8 PG (27.0-34.0); MEAN CORPUSCULAR HGB CONC 33.6 % (32.0-36.0); MEAN PLATELET VOLUME 9.1 FL (7.0-11.0); MONOCYTE # 0.6 TH/MM3 (0-0.9); NEUT % 78.9 % (16.0-70.0); PLATELET COUNT 391 TH/MM3 (150-450); RED CELL DISTRIBUTION WIDTH 14.7 % (11.6-17.2); WHITE BLOOD COUNT 10.3 TH/MM3 (4.0-11.0)
[2017-11-29 07:04] LABS: ALBUMIN 2.1 GM/DL (3.4-5.0); ALT (GPT) 93 U/L (10-53); AST (GOT) 33 U/L (15-37); BLOOD UREA NITROGEN 6 MG/DL (7-18); CALCIUM 8.3 MG/DL (8.5-10.1); CHLORIDE 100 MEQ/L (98-107); CREATININE 0.49 MG/DL (0.50-1.00); GLOMERULAR FILTRATION RATE 129 ML/MIN (>89); GLUCOSE,RANDOM 93 MG/DL (74-106); SODIUM (NA) 137 MEQ/L (136-145)
[2017-11-29 07:07] LABS: ALKALINE PHOSPHATASE 415 U/L (45-117); TOTAL BILIRUBIN ADULT 3.2 MG/DL (0.2-1.0); TOTAL PROTEIN 6.9 GM/DL (6.4-8.2)
[2017-11-29] MEDS: INSULIN ASPART SUPPLEMENTAL SCALE SQ SCH ×4 (08:00→21:00)
[2017-11-29] MEDS: INSULIN DETEMIR 100 UNITS/ML VIAL SQ SCH ×2 (08:09→21:40)
[2017-11-29] MEDS: METOPROLOL TARTRATE 25 MG TAB PO SCH ×2 (08:09→21:39)
[2017-11-29] MEDS: hydrALAZINE HCL 20 MG/ML VIAL IV PUSH PRN (08:10)
[2017-11-29] MEDS: guaiFENesin E.R. 600 MG TAB PO SCH ×2 (08:11→21:00)
[2017-11-29] MEDS: FAMOTIDINE 20 MG/2 ML VIAL IV PUSH SCH ×2 (08:11→21:38)
[2017-11-29] MEDS: SODIUM CHLORIDE 0.9% FLUSH 10 ML FLUSH IV FLUSH SCH ×2 (08:12→21:40)
[2017-11-29] MEDS: ACETAMINOPHEN/HYDROcodone 325 MG/7.5 MG TAB PO PRN (11:24)
[2017-11-29] MEDS ORDERED: ACETAMINOPHEN/HYDROcodone 325 MG/10 MG TAB PO PRN (11:30)
--- NOTE | 2017-11-29 11:35 | HHI.PR ---
Subjective Remarks Follow-up Klatskin tumor/cholelithiasis/new onset diabetes and now pancreatic carcinoma 11/23/17-patient seen and examined early nothing by mouth and complaint of nausea. Also complains of poorly controlled pain and requesting her narcotics to be adjusted. EUS done yesterday 11/22/17 11/24/17-patient seen and examined; states she's had improvement of abdominal pain and denies any nausea was able to tolerate by mouth. 11/25/17-patient seen and examined, reports some abdominal discomfort this morning otherwise stable and afebrile 11/26/17-patient seen and examined, no significant abdominal pain. Was concerned about addiction to narcotics, 11/27/17-patient seen and examined,EUS biopsy positive for pancreatic carcinoma. Today patient states she's not feeling well at all and doesn't want IR placement of the biliary stent 11/28/17-patient seen and examined, again states she's not feeling well today and thinks her biliary stent is working 11/29/17-patient seen and examined, complains of abdominal pain and inadequate pain control. Status post draining of abdominal abscess 11/28/17. Labile BP Objective Vitals Vital Signs Date Time Temp Pulse Resp B/P (MAP) Pulse Ox O2 Delivery O2 Flow Rate FiO2 11/29/17 08:30 Room Air 11/29/17 08:00 63 11/29/17 08:00 98.8 76 16 176/75 (108) 95 11/29/17 06:43 70 185/80 (115) 11/29/17 04:17 98.5 81 22 167/79 (108) 99 11/29/17 00:01 70 11/28/17 23:28 98.1 69 18 162/73 (102) 94 11/28/17 20:46 94 Room Air 11/28/17 20:33 98.4 78 20 174/98 (123) 94 11/28/17 20:16 67 11/28/17 16:38 98.9 74 16 183/70 (107) 95 11/28/17 14:20 97.7 67 18 185/82 (116) 94 11/28/17 12:00 58 I/O 11/28/17 11/28/17 11/28/17 11/29/17 11/29/17 11/29/17 07:00 15:00 23:00 07:00 15:00 23:00 Intake Total 530 ml Output Total 1420 ml 1400 ml Balance -1420 ml -870 ml Intake Oral 480 ml IV Total 50 ml Output Urine Total 900 ml 1400 ml Drainage Total 520 ml Result Diagram: 11/29/1760011/29/17600 Imaging Last Impressions Bilary Stent Insertion 11/28/17 0000 Signed Impressions: Service Date/Time: November 13:34 - CONCLUSION: 1. Uncomplicated placement of 8mm metallic common bile duct stent. 2. Small incisional abscess at the prior biliary drainage site. This was aggressively irrigated. Will request antibiotic coverage. Small sample was cemented for culture. Ameya Valdez MD Abdomen CT 11/21/17 0000 Signed Impressions: Service Date/Time: Wednesday, November 22, 2017 21:21 - CONCLUSION: 1. No perceptible liver mass but there is a questionable elongated low density lesion of the pancreaticoduodenal groove. 2. Internal/external biliary drainage catheters appear appropriately positioned. No extrahepatic very distention. Intrahepatic ducts appear mildly prominent. 3. Cholelithiasis. No perceptible duct stone. 4. No lymphadenopathy or other evidence of metastatic disease in the abdomen. 5. Nonspecific pleural effusions and dependent/compressive atelectasis of the visualized lung bases, right slightly worse than left. Lionel Campoverde MD Bile Duct Drainage 11/19/17 0000 Signed Impressions: Service Date/Time: Sunday, November 19, 2017 08:38 - CONCLUSION: 1. Large filling defect/mass at the confluence of the hepatic ducts extending to the very central common bile duct. This has a typical Klatskin tumor appearance. 2. Uncomplicated transhepatic percutaneous drainage catheter placement. An 8 Austrian internal/external drain was placed. Ameya Valdez MD Liver Ultrasound 11/18/17 0000 Signed Impressions: Service Date/Time: Saturday, November 18, 2017 09:04 - CONCLUSION: 1. Extensive shadowing in the gallbladder fossa probably related to multiple gallstones. 2. Enlarged, fatty liver. 3. Probable sludge in common bile duct. Philip Mcgowan MD Chest X-Ray 11/18/17 0000 Signed Impressions: Service Date/Time: Saturday, November 18, 2017 08:35 - CONCLUSION: 1. Left lung base airspace disease, presumably atelectasis. Developing pneumonia cannot be excluded in the appropriate clinical setting. Ameya Valdez MD Objective Remarks GENERAL: NAD however with depressed mood SKIN: Warm and dry. HEAD: Normocephalic. EYES: No scleral icterus. No injection or drainage. NECK: Supple, trachea midline. No JVD or lymphadenopathy. CARDIOVASCULAR: Regular rate and rhythm without murmurs, gallops, or rubs. RESPIRATORY: Breath sounds equal bilaterally. No accessory muscle use. GASTROINTESTINAL: Abdomen soft, non-tender, nondistended. MUSCULOSKELETAL: No cyanosis, or edema. Biliary drain in place BACK: Nontender without obvious deformity. No CVA tenderness. 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 Pancreatic carcinoma Appreciate input from GI, Surg Onc EUS 11/22/17 EUS , pathology positive for pancreatic carcinoma Plan for possible Port infusion placement next week 12/02 Continue with current pain medication Biliary obstruction s/p Placement of metallic common bile duct stent 11/28/17 Appreciate input from GI Incisional abscess Status post drainage of small incisional abscess at prior biliary drainage site Case was discussed yesterday with interventional radiology Currently on Zosyn IV pending culture report Cholelithiasis Plan for possible laparoscopic cholecystectomy next week 12/02 Appreciate input from general surgery Pain management accordingly Diabetes type 2 Continue Levemir 10 units every 12H Hypertension Increase Lopressor to 75 mg every 12 hours Zan Ramirez MD Nov 29, 2017 11:35
[2017-11-29] MEDS: LABETALOL HCL 100 MG/20 ML VIAL IV PUSH PRN (13:39)
--- NOTE | 2017-11-29 16:46 | HHI.HCPN ---
Met with Ms. Polo for follow-up and ongoing support. She is sitting up at bedside, self reports she is not having a good day. States she had a procedure done yesterday and her understanding is she is going to have gallbladder surgery on Saturday. She remains hopeful to stabilize enough to go back home. Family is continuing to visit her in the hospital but she wishes to be closer to them in [place]. Ms. Polo states she is working with her family to get her affairs in order. Provided her with a copy of [employer] advanced directive. Provided active listening and ongoing emotional support. She is appreciative of palliative care visits. Palliative care will continue to follow throughout hospitalization. Nikky Wagner, [employer] Nov 29, 2017 16:46
--- NOTE | 2017-11-29 18:02 | PD.ONC.PN ---
Subjective Subjective Remarks sitting up in bed multiple family members in room. (patient's father and brother) appetiet famohan denies any pain some nausea Objective Data Date Time Temp Pulse Resp B/P (MAP) Pulse Ox O2 Delivery O2 Flow Rate FiO2 11/29/17 16:00 74 11/29/17 16:00 98.4 76 18 150/67 (94) 98 11/29/17 15:00 74 11/29/17 14:39 146/67 (93) 11/29/17 14:00 72 11/29/17 13:00 76 11/29/17 12:00 97.0 85 18 168/69 (102) 98 11/29/17 12:00 79 11/29/17 11:00 74 11/29/17 10:00 66 11/29/17 09:00 70 11/29/17 08:30 Room Air 11/29/17 08:00 63 11/29/17 08:00 98.8 76 16 176/75 (108) 95 11/29/17 07:00 70 11/29/17 06:43 70 185/80 (115) 11/29/17 04:17 98.5 81 22 167/79 (108) 99 11/29/17 00:01 70 11/28/17 23:28 98.1 69 18 162/73 (102) 94 11/28/17 20:46 94 Room Air 11/28/17 20:33 98.4 78 20 174/98 (123) 94 11/28/17 20:16 67 11/29/17 11/29/17 11/29/17 07:00 15:00 23:00 Intake Total 530 ml Output Total 1400 ml Balance -870 ml Result Diagram: 11/29/17 0611/29/17 06 Laboratory Results Laboratory Tests Test 11/29/17 06:01 White Blood Count 10.3 TH/MM3 Red Blood Count 3.40 MIL/MM3 Hemoglobin 9.8 GM/DL Hematocrit 29.1 % Mean Corpuscular Volume 85.6 FL Mean Corpuscular Hemoglobin 28.8 PG Mean Corpuscular Hemoglobin Concent 33.6 % Red Cell Distribution Width 14.7 % Platelet Count 391 TH/MM3 Mean Platelet Volume 9.1 FL Neutrophils (%) (Auto) 78.9 % Lymphocytes (%) (Auto) 13.9 % Monocytes (%) (Auto) 6.0 % Eosinophils (%) (Auto) 0.9 % Basophils (%) (Auto) 0.3 % Neutrophils # (Auto) 8.1 TH/MM3 Lymphocytes # (Auto) 1.4 TH/MM3 Monocytes # (Auto) 0.6 TH/MM3 Eosinophils # (Auto) 0.1 TH/MM3 Basophils # (Auto) 0.0 TH/MM3 CBC Comment DIFF FINAL Differential Comment Blood Urea Nitrogen 6 MG/DL Creatinine 0.49 MG/DL Random Glucose 93 MG/DL Total Protein 6.9 GM/DL Albumin 2.1 GM/DL Calcium Level 8.3 MG/DL Alkaline Phosphatase 415 U/L Aspartate Amino Transf (AST/SGOT) 33 U/L Alanine Aminotransferase (ALT/SGPT) 93 U/L Total Bilirubin 3.2 MG/DL Sodium Level 137 MEQ/L Potassium Level 3.4 MEQ/L Chloride Level 100 MEQ/L Carbon Dioxide Level 26.0 MEQ/L Anion Gap 11 MEQ/L Estimat Glomerular Filtration Rate 129 ML/MIN Culture Results Microbiology Date/Time Source Procedure Growth Status 11/27/17 09:40 Urine Clean Catch Urine Culture - Final Staphylococcus Aureus Complete 11/28/17 13:42 Abscess Drainage Gram Stain - Final Resulted 11/28/17 13:42 Wound Culture - Preliminary Staphylococcus Aureus Group D Enterococcus Roro Albicans Resulted Administered Medications Medications (Trade) Dose Ordered Sig/Kiara Route PRN Reason Start Time Stop Time Status Last Admin Dose Admin Sodium Chloride (NS Flush) 2 ml UNSCH PRN IV FLUSH FLUSH AFTER USING IV ACCESS 11/18/17 03:30 11/27/17 02:51 Sodium Chloride (NS Flush) 2 ml BID IV FLUSH 11/18/17 09:00 11/29/17 08:12 Famotidine (Pepcid Inj) 20 mg Q12HR IV PUSH 11/18/17 09:00 11/29/17 08:11 Miscellaneous Information 1 Q361D XX 11/18/17 03:30 11/18/17 03:30 Chlorhexidine Gluconate (Chlorhexidine 2% Cloth) Taper DAILY@04 TOP 11/18/17 04:00 11/14/18 03:59 11/22/17 04:00 Magnesium Hydroxide (Milk Of Magnesia Liq) 30 ml Q12H PRN PO Mild constipation 11/18/17 03:30 11/21/17 06:26 Sennosides (Senokot) 17.2 mg Q12H PRN PO Moderate constipation 11/18/17 03:30 11/26/17 08:07 Bisacodyl (Dulcolax Supp) 10 mg DAILY PRN RECTAL SEVERE CONSITIPATION 11/18/17 03:30 11/21/17 06:26 Lactulose (Lactulose Liq) 30 ml DAILY PRN PO SEVERE CONSITIPATION 11/18/17 03:30 11/25/17 18:10 Labetalol HCl (Trandate Inj) 10 mg Q4H PRN IV PUSH SBP greater than 160mm Hg 11/18/17 07:00 11/29/17 13:39 Hydralazine HCl (Apresoline Inj) 10 mg Q6H PRN IV PUSH SBP >160 11/18/17 19:00 11/29/17 08:10 Ibuprofen (Motrin) 400 mg Q6H PRN PO FEVER 11/21/17 16:15 11/22/17 10:10 Ondansetron HCl (Zofran Inj) 4 mg Q4H PRN IV PUSH NAUSEA OR VOMITING 11/22/17 10:45 11/29/17 11:24 Insulin Detemir (Levemir Inj) 10 units Q12HR SQ 11/23/17 21:00 11/29/17 08:09 Insulin Aspart (NovoLOG SUPPLEMENTAL SCALE) 1 ACHS SLIDING SCALE SQ 11/25/17 21:00 11/27/17 20:30 Sodium Chloride (NS Inj) 10 ml 2XWEEK IRRIGATION 11/26/17 14:00 11/26/17 20:27 Hydromorphone HCl (Dilaudid Pf Inj) 1 mg Q4H PRN IV PUSH SEVERE BREAKTHOUGH PAIN 11/26/17 19:00 11/28/17 20:39 Guaifenesin (Mucinex Er) 600 mg BID PO 11/26/17 21:00 11/28/17 20:39 Piperacillin Sod/ Tazobactam Sod 50 ml @ 100 mls/hr Q8H IV 11/28/17 15:00 11/29/17 15:41 Objective Remarks GENERAL: nad SKIN: Warm and dry. NECK: Supple, trachea midline. No JVD or lymphadenopathy. LYMPHATIC: No adenopathy. CARDIOVASCULAR: Regular rate and rhythm without murmurs. RESPIRATORY: Breath sounds equal bilaterally. No accessory muscle use. GASTROINTESTINAL: Abdomen soft, non-tender, nondistended. EXTREMITIES: No cyanosis, or edema. 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 --patient is undecided on whether or how much treatment she is interested in receiving. --awaiting palliative care consult. Assessment 62y/o female with newly diagnosed pancreatic adenocarcinoma. h/o Diabetes, Osteoarthritis. Plan Assessment: 1. Pancreatobiliary adenocarcinoma 2. Biliary obstruction /Jaundice 3. Abdominal pain 4. Nausea Plan: - supportive care - Lap [place] next week - will need neoadjuvant treatment outpatient - wants to receive treatment close to home in [place] Answered questions regarding prognosis and treatment. family members had multiple questions Chavo Mitchell MD Nov 29, 2017 18:02
[2017-11-29] MEDS: IBUPROFEN 400 MG TAB PO PRN (18:36)
[2017-11-30] VITALS (19 sets, daily range): BP systolic 146–179; BP diastolic 66–80; PULSE 62–96; RESP 16–18; TEMP 97.9–98.5; O2SAT 94–97
[2017-11-30] MEDS: guaiFENesin E.R. 600 MG TAB PO SCH ×3 (01:24→20:47)
[2017-11-30] MEDS: CHLORHEXIDINE GLUCONATE 2 % 1 PACK (2 CLOTHS) TOP SCH ×2 (04:00→22:31)
[2017-11-30] MEDS: ONDANSETRON HCL 4 MG/2 ML VIAL IV PUSH PRN ×4 (05:16→20:53)
[2017-11-30] MEDS: HYDROmorphone HCL PF 2 MG/ML VIAL IV PUSH PRN (05:27)
[2017-11-30] MEDS: PIPERACIL-TAZO 3.375 GM PREMIX 50 ML IV SCH ×3 (07:00→23:37)
[2017-11-30] MEDS: INSULIN ASPART SUPPLEMENTAL SCALE SQ SCH ×4 (08:00→20:50)
[2017-11-30] MEDS: FAMOTIDINE 20 MG/2 ML VIAL IV PUSH SCH ×2 (08:13→20:47)
[2017-11-30] MEDS: METOPROLOL TARTRATE 25 MG TAB PO SCH ×2 (08:13→20:47)
[2017-11-30] MEDS: INSULIN DETEMIR 100 UNITS/ML VIAL SQ SCH ×2 (08:14→20:49)
[2017-11-30] MEDS: SODIUM CHLORIDE 0.9% FLUSH 10 ML FLUSH IV FLUSH SCH ×2 (08:18→10:38)
[2017-11-30] MEDS: MAGNESIUM HYDROXIDE SUSP 30 ML CUP PO PRN (08:31)
[2017-11-30] MEDS: SENNOSIDES 8.6 MG TAB PO PRN (08:31)
[2017-11-30] MEDS: IBUPROFEN 400 MG TAB PO PRN ×2 (10:37→17:29)
--- NOTE | 2017-11-30 12:10 | HHI.PR ---
Subjective Remarks Follow-up Klatskin tumor/cholelithiasis/new onset diabetes and now pancreatic carcinoma Patient reports some abdominal discomfort and fatigue. Otherwise no new complaints. Objective Vitals Vital Signs Date Time Temp Pulse Resp B/P (MAP) Pulse Ox O2 Delivery O2 Flow Rate FiO2 11/30/17 11:30 96 21 11/30/17 08:02 98.5 76 18 160/70 (100) 94 11/30/17 06:00 64 11/30/17 05:19 97.9 79 18 165/69 (101) 97 11/30/17 05:00 70 11/30/17 04:00 66 11/30/17 03:00 64 11/30/17 02:00 68 11/30/17 01:28 98.3 65 18 146/66 (92) 96 11/30/17 01:00 64 11/30/17 00:00 63 11/29/17 23:00 64 11/29/17 22:00 86 11/29/17 21:00 72 11/29/17 21:00 98.2 69 16 157/75 (102) 96 11/29/17 20:00 Room Air 11/29/17 20:00 72 11/29/17 19:00 75 11/29/17 19:00 74 11/29/17 18:00 68 11/29/17 17:00 68 11/29/17 16:00 74 11/29/17 16:00 98.4 76 18 150/67 (94) 98 11/29/17 15:00 74 11/29/17 14:39 146/67 (93) 11/29/17 14:00 72 11/29/17 13:00 76 I/O 11/29/17 11/29/17 11/29/17 11/30/17 11/30/17 11/30/17 07:00 15:00 23:00 07:00 15:00 23:00 Intake Total 530 ml 960 ml Output Total 1400 ml 1700 ml Balance -870 ml -740 ml Intake Oral 480 ml 960 ml IV Total 50 ml Output Urine Total 1400 ml 1700 ml # Bowel Movements 0 Result Diagram: 11/29/1760011/29/17600 Objective Remarks GENERAL: No acute distress. Appear frail CARDIOVASCULAR: Regular rate and rhythm without murmurs, gallops, or rubs. RESPIRATORY: Breath sounds equal bilaterally. No accessory muscle use. GASTROINTESTINAL: Abdomen soft, non-tender, nondistended. MUSCULOSKELETAL: No cyanosis, or edema. Biliary drain in place BACK: Nontender without obvious deformity. No CVA tenderness. 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 Cultures growing staph aureus, group D enterococcus, and Roro. Currently on Zosyn IV Cholelithiasis Plan for possible laparoscopic cholecystectomy next week 12/02 Appreciate input from general surgery Pain management accordingly Diabetes type 2 Continue Levemir 10 units every 12H Hypertension Increase Lopressor to 75 mg every 12 hours Discharge Planning Plan for surgery on Saturday. Fernandez Way MD Nov 30, 2017 12:10
[2017-12-01] VITALS (18 sets, daily range): BP systolic 140–189; BP diastolic 66–84; PULSE 58–88; RESP 14–20; TEMP 97.6–98.9; O2SAT 97–100
[2017-12-01] MEDS: ONDANSETRON HCL 4 MG/2 ML VIAL IV PUSH PRN ×3 (03:15→20:51)
[2017-12-01] MEDS: IBUPROFEN 400 MG TAB PO PRN (03:16)
[2017-12-01] MEDS ORDERED: SIMETHICONE 125 MG CHEWABLE TAB PO ONE (04:15)
[2017-12-01 05:21] LABS: HEMOGLOBIN 9.4 GM/DL (11.6-15.3); MEAN CELL VOLUME 84.9 FL (80.0-100.0); MEAN CORPUSCULAR HEMOGLOBIN 28.5 PG (27.0-34.0); MEAN CORPUSCULAR HGB CONC 33.6 % (32.0-36.0); MEAN PLATELET VOLUME 8.6 FL (7.0-11.0); PLATELET COUNT 403 TH/MM3 (150-450); RED CELL DISTRIBUTION WIDTH 14.6 % (11.6-17.2); WHITE BLOOD COUNT 8.9 TH/MM3 (4.0-11.0)
[2017-12-01 05:43] LABS: ALBUMIN 2.1 GM/DL (3.4-5.0); BICARBONATE 28.2 MEQ/L (21.0-32.0); CALCIUM 8.4 MG/DL (8.5-10.1); CREATININE 0.62 MG/DL (0.50-1.00); DIRECT BILIRUBIN ADULT 1.5 MG/DL (0.0-0.2); INDIRECT BILIRUBIN 0.5 MG/DL (0.0-0.8); TOTAL PROTEIN 6.8 GM/DL (6.4-8.2)
[2017-12-01] MEDS ORDERED: POTASSIUM BICARBONATE 25 MEQ EFFERVESCENT TAB PO ONE (06:00)
[2017-12-01] MEDS: PIPERACIL-TAZO 3.375 GM PREMIX 50 ML IV SCH (06:26)
[2017-12-01] MEDS: INSULIN ASPART SUPPLEMENTAL SCALE SQ SCH ×4 (08:00→22:51)
[2017-12-01] MEDS: FAMOTIDINE 20 MG/2 ML VIAL IV PUSH SCH ×2 (08:44→20:53)
[2017-12-01] MEDS: INSULIN DETEMIR 100 UNITS/ML VIAL SQ SCH ×2 (08:44→22:51)
[2017-12-01] MEDS: POTASSIUM CHLOR 20 MEQ PREMIX 100 ML IV SCH ×2 (08:44→11:13)
[2017-12-01] MEDS: METOPROLOL TARTRATE 25 MG TAB PO SCH ×2 (08:51→20:55)
[2017-12-01] MEDS: guaiFENesin E.R. 600 MG TAB PO SCH ×2 (08:51→22:51)
[2017-12-01] MEDS: SODIUM CHLORIDE 0.9% FLUSH 10 ML FLUSH IV FLUSH SCH ×2 (09:00→20:55)
[2017-12-01] MEDS ORDERED: POTASSIUM CHLORIDE 10 MEQ CONTROLLED RELEASE TAB PO ONE (10:00)
--- NOTE | 2017-12-01 14:34 | HHI.PR ---
Subjective Remarks Patient complained of having abdominal cramping and diarrhea today. Objective Vitals Vital Signs Date Time Temp Pulse Resp B/P (MAP) Pulse Ox O2 Delivery O2 Flow Rate FiO2 12/01/17 13:50 98.0 75 20 148/71 (96) 98 12/01/17 13:03 98.2 72 18 162/84 (110) 97 12/01/17 07:49 97.6 67 18 157/73 (101) 97 12/01/17 06:00 58 12/01/17 05:00 68 12/01/17 04:00 67 12/01/17 04:00 98.0 58 16 153/66 (95) 100 12/01/17 03:00 64 12/01/17 02:00 66 12/01/17 00:00 97.9 70 14 140/71 (94) 98 12/01/17 00:00 61 11/30/17 23:00 62 11/30/17 22:00 62 11/30/17 21:00 82 11/30/17 20:00 98.0 93 18 179/75 (109) 96 11/30/17 20:00 72 11/30/17 19:33 92 Nasal Cannula 3.00 11/30/17 19:00 70 11/30/17 17:14 98.0 66 16 171/71 (104) 97 I/O 11/30/17 11/30/17 11/30/17 12/01/17 12/01/17 12/01/17 07:00 15:00 23:00 07:00 15:00 23:00 Intake Total 1130 ml 100 ml 50 ml Output Total 650 ml Balance 1130 ml -550 ml 50 ml Intake Oral 1080 ml IV Total 50 ml 100 ml 50 ml Output Urine Total 650 ml # Voids 4 Result Diagram: 12/01/17 0500 12/01/17 0500 Objective Remarks GENERAL: No acute distress. Appear frail CARDIOVASCULAR: Regular rate and rhythm without murmurs, gallops, or rubs. RESPIRATORY: Breath sounds equal bilaterally. No accessory muscle use. GASTROINTESTINAL: Abdomen soft, mild diffuse discomfort to palpation. Nondistended. MUSCULOSKELETAL: No cyanosis, or edema. Biliary drain in place BACK: Nontender without obvious deformity. No CVA tenderness. 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 Cultures growing staph aureus, group D enterococcus, and Roro. Currently on Zosyn IV Cholelithiasis Plan for possible laparoscopic cholecystectomy next week 12/02 Appreciate input from general surgery Pain management accordingly Diabetes type 2 Continue Levemir 10 units every 12H Hypokalemia: Replace aggressively. Follow-up BMP Diarrhea: Could be secondary to antibiotics. Doubt C. difficile. Patient adamant about receiving antidiarrheal medication. We will give one-time dose of Imodium. Check stool for C. difficile if diarrhea recurs. Hypertension Increase Lopressor to 75 mg every 12 hours Discharge Planning Plan for surgery on Saturday. Fernandez Way MD Dec 01, 2017 14:34
[2017-12-01] MEDS ORDERED: ACETAMINOPHEN 325 MG TAB PO PRN (14:45)
[2017-12-01] MEDS ORDERED: LOPERAMIDE HCL 2 MG CAP PO ONE (15:30)
[2017-12-01 17:07] LABS: BICARBONATE 25.6 MEQ/L (21.0-32.0); CALCIUM 8.4 MG/DL (8.5-10.1); CREATININE 0.49 MG/DL (0.50-1.00)
[2017-12-01] MEDS: FLUCONAZOLE 200 MG TAB PO SCH (17:10)
[2017-12-01] MEDS: POTASSIUM CHLORIDE INJ 30 MEQ in SODIUM CHLOR 0.45% 1000 ML INJ 1,000 ML IV SCH (21:16)
[2017-12-01] MEDS: CHLORHEXIDINE GLUCONATE 2 % 1 PACK (2 CLOTHS) TOP SCH (22:53)
[2017-12-02] VITALS (22 sets, daily range): BP systolic 142–181; BP diastolic 67–89; PULSE 65–88; RESP 16–18; TEMP 97.8–99.1; O2SAT 95–100
[2017-12-02] MEDS: ONDANSETRON HCL 4 MG/2 ML VIAL IV PUSH PRN (03:53)
[2017-12-02] MEDS: SODIUM CHLORIDE 0.9% FLUSH 10 ML FLUSH IV FLUSH PRN ×2 (03:53→05:02)
[2017-12-02 07:54] LABS: HEMATOCRIT 28.3 % (35.0-46.0); HEMOGLOBIN 9.5 GM/DL (11.6-15.3); MEAN CELL VOLUME 85.1 FL (80.0-100.0); MEAN CORPUSCULAR HEMOGLOBIN 28.6 PG (27.0-34.0); MEAN CORPUSCULAR HGB CONC 33.7 % (32.0-36.0); MEAN PLATELET VOLUME 8.7 FL (7.0-11.0); PLATELET COUNT 422 TH/MM3 (150-450); RED BLOOD COUNT 3.33 MIL/MM3 (4.00-5.30); RED CELL DISTRIBUTION WIDTH 14.5 % (11.6-17.2); WHITE BLOOD COUNT 9.2 TH/MM3 (4.0-11.0)
[2017-12-02] MEDS: INSULIN ASPART SUPPLEMENTAL SCALE SQ SCH ×4 (08:00→20:57)
[2017-12-02] MEDS: INSULIN DETEMIR 100 UNITS/ML VIAL SQ SCH ×2 (08:08→20:59)
[2017-12-02] MEDS: SODIUM CHLORIDE 0.9% FLUSH 10 ML FLUSH IV FLUSH SCH ×2 (08:08→21:06)
[2017-12-02 08:15] LABS: CALCIUM 8.4 MG/DL (8.5-10.1); CREATININE 0.54 MG/DL (0.50-1.00)
[2017-12-02] MEDS: FAMOTIDINE 20 MG/2 ML VIAL IV PUSH SCH ×2 (08:23→21:05)
[2017-12-02] MEDS: FLUCONAZOLE 200 MG TAB PO SCH (08:23)
[2017-12-02] MEDS: METOPROLOL TARTRATE 25 MG TAB PO SCH ×2 (08:24→21:05)
[2017-12-02] MEDS: guaiFENesin E.R. 600 MG TAB PO SCH ×2 (08:27→21:05)
[2017-12-02] MEDS: POTASSIUM CHLOR 20 MEQ PREMIX 100 ML IV SCH ×2 (11:45→21:07)
[2017-12-02] MEDS ORDERED: ceFAZolin INJ 1,000 MG VIAL IV ONE ×2 (12:00→16:50)
[2017-12-02] MEDS ORDERED: NEOSTIGMINE 5 MG/5 ML SYRINGE IV PUSH ONE (12:00)
[2017-12-02] MEDS ORDERED: DEXAMETHASONE SOD PHOS 4 MG/ML VIAL IV ONE (12:00)
[2017-12-02] MEDS ORDERED: ONDANSETRON HCL 4 MG/2 ML VIAL IV ONE (12:00)
[2017-12-02] MEDS ORDERED: PROPOFOL 200 MG/20 ML AMP IV ONE (12:00)
[2017-12-02] MEDS ORDERED: GLYCOPYRROLATE 1 MG/5 ML SYRINGE IV PUSH ONE (12:00)
[2017-12-02] MEDS ORDERED: LIDOCAINE HCL 1% PF 5 ML SYRINGE OTHER ONE (12:00)
[2017-12-02] MEDS ORDERED: ROCURONIUM INJ 50 MG/5 ML SYRINGE IV PUSH ONE (12:00)
[2017-12-02] MEDS ORDERED: hydrALAZINE HCL 20 MG/ML VIAL IV ONE (12:00)
--- NOTE | 2017-12-02 12:09 | HHI.PR ---
Subjective Remarks Patient reports she did not sleep well last night because she was uncomfortable. Diarrhea resolved. Objective Vitals Vital Signs Date Time Temp Pulse Resp B/P (MAP) Pulse Ox O2 Delivery O2 Flow Rate FiO2 12/02/17 10:18 159/81 (107) 12/02/17 08:27 98.6 77 18 177/76 (109) 99 12/02/17 08:00 Room Air 12/02/17 08:00 80 12/02/17 06:02 74 12/02/17 05:06 79 12/02/17 04:05 70 12/02/17 03:40 99.1 69 16 156/71 (99) 95 12/02/17 03:02 65 12/02/17 02:04 77 12/02/17 01:03 69 12/02/17 00:09 69 12/02/17 00:00 98.0 69 16 156/75 (102) 100 12/01/17 23:08 69 12/01/17 22:01 71 12/01/17 21:00 72 12/01/17 20:45 189/76 (113) 12/01/17 20:40 Room Air 12/01/17 20:40 98.4 88 16 177/78 (111) 99 12/01/17 20:02 79 12/01/17 19:01 85 12/01/17 18:05 98.9 82 18 160/80 (106) 97 12/01/17 13:50 98.0 75 20 148/71 (96) 98 12/01/17 13:37 Room Air 12/01/17 13:37 68 12/01/17 13:03 98.2 72 18 162/84 (110) 97 I/O 12/01/17 12/01/17 12/01/17 12/02/17 12/02/17 12/02/17 07:00 15:00 23:00 07:00 15:00 23:00 Intake Total 100 ml 50 ml 2200 ml 100 ml Output Total 650 ml 200 ml Balance -550 ml 50 ml 2000 ml 100 ml Intake Oral 1200 ml IV Total 100 ml 50 ml 1000 ml 100 ml Output Urine Total 650 ml 200 ml # Voids 3 2 # Bowel Movements 3 0 Result Diagram: 12/02/1771412/02/17714 Objective Remarks GENERAL: No acute distress. Appear frail CARDIOVASCULAR: Regular rate and rhythm without murmurs, gallops, or rubs. RESPIRATORY: Breath sounds equal bilaterally. No accessory muscle use. GASTROINTESTINAL: Abdomen soft, mild diffuse discomfort to palpation. Nondistended. MUSCULOSKELETAL: No cyanosis, or edema. Biliary drain in place BACK: Nontender without obvious deformity. No CVA tenderness. 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 Cultures growing staph aureus, group D enterococcus, and Orro. Currently on Zosyn IV Cholelithiasis Plan for possible laparoscopic cholecystectomy today Appreciate input from general surgery Pain management accordingly Diabetes type 2 Continue Levemir 10 units every 12H Hypokalemia: Replace aggressively. Follow-up BMP Diarrhea: Resolved. Hypertension Lopressor to 75 mg every 12 hours Discharge Planning OR today. Plan to transfer back to [facility] once stable and cleared by surgery Fernandez Way MD Dec 02, 2017 12:09
[2017-12-02] MEDS ORDERED: HEPARIN SODIUM - SQ 10,000 UNITS/ML VIAL ONE (12:23)
[2017-12-02] MEDS ORDERED: BUPIVACAINE/EPINEPHRINE 0.5% PF 30 ML VIAL ONE (12:23)
[2017-12-02] MEDS ORDERED: HEPARIN SODIUM - IV 10,000 UNITS/10 ML VIAL ONE (12:23)
[2017-12-02] MEDS ORDERED: SODIUM CHLORIDE 0.9% 20 ML VIAL ONE (12:27)
[2017-12-02] MEDS ORDERED: ACETAMINOPHEN 1000 MG/100 ML 0 ML IV ONE (12:48)
--- NOTE | 2017-12-02 15:29 | HHI.HCPN ---
Reason for visit a. To assist with evaluation and management of symptoms including: Pain, nausea, constipation b. To assist medical decision maker(s) with: better understanding of current medical conditions; weighing benefits/burdens of medical treatment options; making medical treatment decisions. . Subjective/Interval History Ms. Polo is a 62 year-old female who lives in [place], [place]. She was admitted to [facility] for abdominal pain and nausea with a duration of 1 week. Patient was diagnosed with diabetic ketoacidosis. CT scan and MRCP revealed gallstones and a biliary obstruction as well as a cystic mass in the head of the pancreas. A HIDA scan was also concerning for common bile duct obstruction. The patient was transferred to [facility] for further evaluation and possible ERCP. 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 S/P internal biliary stent placement. Follow-up visit for symptom management and clarification of medical treatment goals. Patient seen and assessed in room 240. Denied complaints at the time of exam. Patient preparing for port placement and laparoscopic cholecystectomy this morning. Pancreaticobiliary adenocarcinoma mass may be resectable. Patient will be transferred back to [facility] when medically stable. She has been indecisive on whether or not she wishes to pursue aggressive treatment options. At this point in time she wishes to return to [place] to be closer to her family and would like to follow-up with an oncologist there outpatient. Patient reported pain has been better managed in recent days. PRN [place] and hydromorphone are available but has not been required in the past 24 hours. She has some ongoing, intermittent nausea; she has received 2 doses ondansetron in the past 24 hours. LBM: 12/01/16. Met with patient's brother and father per patient's request. Update provided on patient's current clinical condition and overall prognosis. Patient was previously given HCS designation form and living will but has not yet completed the documents. She requested that I give her family the "5 Wishes" information which were discussed as well. . Advance Directives Advance Directive Specifics Significant change in goals: Patient remains indecisive regarding the extent to which she wishes to pursue aggressive therapy. At this point in time, medical treatment goals remain aggressive. . Objective Vital Signs Date Time Temp Pulse Resp B/P (MAP) Pulse Ox O2 Delivery O2 Flow Rate FiO2 12/02/17 12:15 98.6 66 18 166/89 (114) 99 12/02/17 10:18 159/81 (107) 12/02/17 08:27 98.6 77 18 177/76 (109) 99 12/02/17 08:00 Room Air 12/02/17 08:00 80 12/02/17 06:02 74 12/02/17 05:06 79 12/02/17 04:05 70 12/02/17 03:40 99.1 69 16 156/71 (99) 95 12/02/17 03:02 65 12/02/17 02:04 77 12/02/17 01:03 69 12/02/17 00:09 69 12/02/17 00:00 98.0 69 16 156/75 (102) 100 12/01/17 23:08 69 12/01/17 22:01 71 12/01/17 21:00 72 12/01/17 20:45 189/76 (113) 12/01/17 20:40 Room Air 12/01/17 20:40 98.4 88 16 177/78 (111) 99 12/01/17 20:02 79 12/01/17 19:01 85 12/01/17 18:05 98.9 82 18 160/80 (106) 97 Intake & Output 12/02/17 12/02/17 07:00 19:00 Intake Total 1100 ml Balance 1100 ml IV Total 1100 ml # Voids 2 # Bowel Movements 0 . Physical Exam CONSTITUTIONAL/GENERAL: This is an adequately nourished patient, in no apparent distress. TUBES/LINES/DRAINS: PIV SKIN: Jaundice. Ecchymoses on upper extremities. Skin temperature appropriate. Not diaphoretic. HEAD: Atraumatic. Normocephalic. EYES: Pupils equal and round and reactive. Extraocular motions intact. + scleral icterus. No injection or drainage. Fundi not examined. ENT: Hearing grossly normal. Nose without bleeding or purulent drainage. Oral mucosa is dry NECK: Trachea midline. Supple, nontender. No palpable thyroid enlargement or nodularity. CARDIOVASCULAR: Regular rate and rhythm without murmurs, gallops, or rubs. No JVD. Peripheral pulses symmetric. RESPIRATORY/CHEST: Symmetric, unlabored respirations. Clear to auscultation. Breath sounds equal bilaterally. No wheezes, rales, or rhonchi. GASTROINTESTINAL: Abdomen is tender to palpation. Bowel sounds active 4 quadrants. GENITOURINARY: Without palpable bladder distension. MUSCULOSKELETAL: Extremities without clubbing, cyanosis, or edema. No obvious deformities no mottling or clubbing. LYMPHATICS: No palpable cervical or supraclavicular adenopathy. NEUROLOGICAL: Awake and alert. Follows commands. Cognitively sharp. Moves all extremities. PSYCHIATRIC: No obvious anxiety/depression. no apparent hallucinations or other psychotic thought process. . Diagnostic Tests Laboratory Laboratory Tests Test 12/01/17 05:00 12/01/17 16:13 12/02/17 07:15 White Blood Count 8.9 TH/MM3 (4.0-11.0) 9.2 TH/MM3 (4.0-11.0) Red Blood Count 3.30 MIL/MM3 (4.00-5.30) 3.33 MIL/MM3 (4.00-5.30) Hemoglobin 9.4 GM/DL (11.6-15.3) 9.5 GM/DL (11.6-15.3) Hematocrit 28.0 % (35.0-46.0) 28.3 % (35.0-46.0) Mean Corpuscular Volume 84.9 FL (80.0-100.0) 85.1 FL (80.0-100.0) Mean Corpuscular Hemoglobin 28.5 PG (27.0-34.0) 28.6 PG (27.0-34.0) Mean Corpuscular Hemoglobin Concent 33.6 % (32.0-36.0) 33.7 % (32.0-36.0) Red Cell Distribution Width 14.6 % (11.6-17.2) 14.5 % (11.6-17.2) Platelet Count 403 TH/MM3 (150-450) 422 TH/MM3 (150-450) Mean Platelet Volume 8.6 FL (7.0-11.0) 8.7 FL (7.0-11.0) Blood Urea Nitrogen 6 MG/DL (7-18) 6 MG/DL (7-18) 5 MG/DL (7-18) Creatinine 0.62 MG/DL (0.50-1.00) 0.49 MG/DL (0.50-1.00) 0.54 MG/DL (0.50-1.00) Random Glucose 137 MG/DL (74-106) 111 MG/DL (74-106) 90 MG/DL (74-106) Total Protein 6.8 GM/DL (6.4-8.2) Albumin 2.1 GM/DL (3.4-5.0) Calcium Level 8.4 MG/DL (8.5-10.1) 8.4 MG/DL (8.5-10.1) 8.4 MG/DL (8.5-10.1) Alkaline Phosphatase 425 U/L (45-117) Aspartate Amino Transf (AST/SGOT) 31 U/L (15-37) Alanine Aminotransferase (ALT/SGPT) 69 U/L (10-53) Total Bilirubin 2.0 MG/DL (0.2-1.0) Direct Bilirubin 1.5 MG/DL (0.0-0.2) Sodium Level 139 MEQ/L (136-145) 139 MEQ/L (136-145) 139 MEQ/L (136-145) Potassium Level 2.7 MEQ/L (3.5-5.1) 3.6 MEQ/L (3.5-5.1) 3.0 MEQ/L (3.5-5.1) Chloride Level 102 MEQ/L (98-107) 104 MEQ/L (98-107) 105 MEQ/L (98-107) Carbon Dioxide Level 28.2 MEQ/L (21.0-32.0) 25.6 MEQ/L (21.0-32.0) 25.0 MEQ/L (21.0-32.0) Anion Gap 9 MEQ/L (5-15) 9 MEQ/L (5-15) 9 MEQ/L (5-15) Estimat Glomerular Filtration Rate 98 ML/MIN (>89) 129 ML/MIN (>89) 115 ML/MIN (>89) Magnesium Level 2.2 MG/DL (1.5-2.5) Indirect Bilirubin 0.5 MG/DL (0.0-0.8) . Result Diagram: 12/02/17 0715 12/02/17 0715 Assessment and Plan Disease Oriented Problem List: (1) Diabetes (2) Cholelithiasis (3) Hypertension (4) Elevated LFTs (5) Pancreatic cancer Symptom Scale: (1) Pain 0-10 Scale: Unable to quantify (2) Nausea 0-10 Scale: Unable to quantify (3) Constipation 0-10 Scale: Unable to quantify Pertinent Non-Medical Issues Psychosocial: Patient moved to [place], [place] when she was around 12 years old. Patient has 1 brother, Edwardo, who lives locally. Her mother is and her father is alive and well, living independently nearby. Patient is ; she has no children. She works at a [employer]. 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 Spiritual: Patient defines herself as "spiritual" Legal: Per [place] statutes, in the absence of written advanced directives healthcare proxy decision making falls to the patient's father Ethical issues impacting care: No known ethical issues impacting care. . Important Contacts Jarett Polo, father: [phone] Edwardo Polo, brother: [phone] . Prognosis Patient is a 62 yo female with newly diagnosed pancreatic adenocarcinoma. General surgery is uncertain if the mass is resectable at this time; patient has not yet decided if she wants to proceed with aggressive interventions. Plan for internal biliary stent placement tomorrow and port placement with cholecystectomy on 12/02/2017. Patient will make a decision whether she wishes to proceed with more complex surgery after Saturday. . Code Status: Full Code Plan * FULL CODE * Decision-making: Patient currently has good insight and judgment related to her medical condition. She understands that per [place] statutes, in the absence of written advanced directives healthcare proxy is decision making will follow to her father. * Patient remains indecisive regarding the extent to which she wishes to pursue aggressive therapy. At this point in time, medical treatment goals remain aggressive. * Met with patient's brother and father per patient's request. Update provided on patient's current clinical condition and overall prognosis. Patient was previously given HCS designation form and living will but has not yet completed the documents. She requested that I give her family the "5 Wishes" information which were discussed as well. Family verbalized uncertainty related to plan of care moving forward. Collaborated with rifle case repairer who states patient will be transferred back to [facility] when she is medically stable, and the wrapper caser at [facility] will coordinate patient's discharge plans and follow-up with outpatient oncologist. * Discussed patient with bedside Chelly Jasso (general surgery ELECTRONICS PROCESSING SUPERVISOR) and Radha Bardales (oncology PA) * Symptom management: = Pain: Multifactoral; contributing factors include invasive lines, tumor burden, cholelithiasis, CBD obstruction, abdominal distention, constipation. Patient reports intermittent abdominal pain that varies in location and characteristic. PRN [place] and IV Dilaudid are available but have not been required in the past 24 hours. = Constipation: Patient is high risk for constipation secondary to low oral intake, impaired mobility, opioid analgesics and tumor burden. LBM: 11/27/2017, soft. Current orders for PRN Milk of magnesia, Senokot, Dulcolax suppository and Lactulose. Educated the patient on factors that may contribute to constipation as well as the goal that the patient will have a BM every 3 days. LBM:12/01/17 = Nausea: Patient reports "waves of nausea." She is unable to identify exacerbating factors. She has orders for PRN Phenergan IM and IV Zofran. Patient has received 2 doses of Zofran in the past 24 hours. * Palliative care will continue to follow this patient throughout her hospitalization to establish trust, assist with symptom management and clarification of medical treatment goals . Attestation To help prompt me to consider important information that might be impacting today's encounter and assessment, information from prior notes written by myself or my colleagues may have been "brought forward" into today's note. My signature on this note, however, is an attestation that I personally performed the exam, history, and/or decision-making noted today, and, unless otherwise indicated, the interactions with patient, family, and staff as well as the review of records all occurred today. I also attest that the listed assessment and stated plan reflect my best clinical judgment today based on the combination of historical information, prior notes, and today's exam/ interactions. When time spent is documented, it refers only to time spent today by the signer, or if indicated, combined time spent today by collaborating physician/nurse practitioner. . Hansa Padilla [facility] Dec 02, 2017 15:29
[2017-12-02] MEDS ORDERED: POTASSIUM CHLOR 20 MEQ PREMIX 100 ML IV ONE (16:00)
--- NOTE | 2017-12-02 16:01 | RADRPT ---
EXAM DATE/TIME: 12/02/2017 13:29 [facility] COMPARISON: No previous studies available for comparison. INDICATIONS : Infusport placement in left chest. MEDICAL HISTORY : Diabetes. SURGICAL HISTORY : Hysterectomy. Biliary stent. ENCOUNTER: Initial ACUITY: 1 day PAIN SCORE: Non-responsive. LOCATION: Left chest FINDINGS: Left chest port catheter in satisfactory position with catheter tip overlying SVC. Endotracheal tube and nasogastric tube are also noted. There is nothing to suggest pneumothorax or other complication. CONCLUSION: Satisfactory port positioning Lionel Alfaro MD on December 02, 2017 at 15:58 Board Certified Radiologist. This report was verified electronically.
[2017-12-02] MEDS ORDERED: ACETAMINOPHEN 1000 MG/100 ML 100 ML IV ONE (16:20)
[2017-12-02] MEDS ORDERED: MIDAZOLAM HCL 2 MG/2 ML VIAL ONE (16:59)
[2017-12-02] MEDS ORDERED: MORPHINE SULFATE 4 MG/ML INJ ONE (17:01)
[2017-12-02] MEDS: HYDROmorphone HCL PF 2 MG/ML VIAL IV PUSH PRN ×2 (17:10→23:17)
--- NOTE | 2017-12-02 17:10 | MP ---
cc: Elijah Jackson MD DATE OF OPERATION: 12/02/2017 PREOPERATIVE DIAGNOSES: 1. Adenocarcinoma of the head of the pancreas, borderline resectable. 2. Biliary obstruction. 3. Acute on chronic cholecystitis and cholelithiasis. POSTOPERATIVE DIAGNOSES: 1. Adenocarcinoma of the head of the pancreas, borderline resectable. 2. Biliary obstruction. 3. Acute on chronic cholecystitis and cholelithiasis. PROCEDURES PERFORMED: 1. Left subclavian vein Infusaport placement. 2. Intraoperative interpretation of fluoroscopic images by MD. 3. Diagnostic staging laparoscopy. 4. Laparoscopic cholecystectomy. ATTENDING SURGEON: Elijah Jackson MD MUCKER COFFERDAM: Staff. ANESTHESIA: General and local anesthetic. ESTIMATED BLOOD LOSS: Less than 25 mL COMPLICATIONS: None. FINDINGS: 1. Tip of the Infusaport in the atriocaval junction on fluoroscopy. 2. Large acute and chronically inflamed gallbladder impacted with gallstones. 3. No evidence of carcinomatosis or metastatic disease. INDICATION FOR PROCEDURE: The patient is a 62-year-old female who was transferred from [facility] with jaundice and concern for biliary obstruction and need for ERCP. The patient underwent further evaluation and was found to have a mass in the head of the pancreas. EUS and biopsy did reveal adenocarcinoma and this was concerning on imaging for encasement of the superior mesenteric vein and portal confluence. This was staged as a borderline resectable tumor. The patient had significant right upper quadrant pain even after resolution of her obstructive jaundice with a PTC and permanent metal stent internalization, still had significant pain in the right upper quadrant and nausea. After discussion with the patient about management including neoadjuvant chemotherapy and radiation for treatment of her pancreatic adenocarcinoma, as well as treatment of her acute medical process with a cholecystectomy due to signs of cholecystitis on imaging and physical exam, patient agreed to undergo the above procedures. DESCRIPTION OF PROCEDURE: The patient was taken to the operating room and placed in the supine position. The patient underwent general endotracheal anesthesia. The patient's abdomen was prepped and draped. The chest wall was prepped and draped as well. The Infusaport was performed first. We anesthetized the area of the left chest wall for the Infusaport with local anesthetic. We accessed the left subclavian vein on the third attempt. We passed the wire without difficulty with ectopy and did confirm on fluoroscopy this to be in the venous system as across midline. We were able to extend this percutaneous stick site into a horizontal incision with a 15 blade scalpel and used the Bovie electrocautery to dissect through subcutaneous tissue and make a subcutaneous pocket. We then used a breakaway dilator introducer to introduce the 8 [place] catheter into the venous system and removed the wire. This was custom measured on fluoroscopy so the tip would lie in the atriocaval junction without any kinking. The was assembled according maintenance and utilities supervisor's recommendations and placed in the subcutaneous pocket without difficulty. We were then able to close the port pocket with 3-0 Monocryl and Dermabond. We were able to access the port. This aspirated blood readily and was flushed with heparinized saline. This was left accessed as anesthesia needed venous access due to the patient being a difficult stick for IVs. Final fluoroscopy revealed the catheter in good position with no kinking of the catheter. We then turned our attention towards the laparoscopic cholecystectomy. The abdomen was entered through an Optiview-type technique just to the right of the umbilicus. Using local anesthetic at the site, we used a 5 mm trocar after incision of the skin to enter the abdomen under direct visualization. We insufflated the abdomen and surveyed the abdomen. There was no evidence of any complication from our entry. We surveyed the abdomen with a 5 mm 38 camera as well. There was some evidence of some very distended thick white to blue-type gallbladder that was consistent with acute and particularly chronic cholecystitis, as it was clearly impacted with stones as well. There is some inflammation of the right upper quadrant by the liver due to the patient's PTC placement. There was no evidence of carcinomatosis or metastatic disease in the liver or throughout the peritoneum. We then placed a 10 mm trocar into the subxiphoid position and two 5 mm ports in the right upper quadrant, all under direct visualization of laparoscope. Local anesthetic was used at all port sites. We were then able to grasp the gallbladder and retract it upward. We did have to decompress the gallbladder with a small cholecystostomy and the suction tableau architect to gain better grasp of the gallbladder, as it was very distended, acutely. We dissected the triangle of Calot using hook electrocautery and the [place] dissector. There was a rather posterior artery, but otherwise, anatomy was normal. We doubly clipped proximal, single clipped distal the cystic duct and divided this with laparoscopic EndoShears. We singly clipped the artery proximal and divided the distal part with the electrocautery. We used electrocautery to take the gallbladder off the gallbladder fossa. There were a few small stones that fell out from her cholecystotomy area from the decompression. We were able to remove the gallbladder with an EndoCatch bag and then used a second EndoCatch bag to remove all stones. These were all inspected and felt to be removed completely. We irrigated the right upper quadrant with suction tableau architect until all suctioned area was clean. There was no evidence of bile leak or bleeding or any complication. All stones were removed. We were then able to, again, remove the gallbladder and the stones with the EndoCatch bag through the subxiphoid port. This was widened to remove this large distended gallbladder. We were then able to close the posterior rectus sheath, followed by the anterior rectus sheath with 0 Vicryl and 0 PDS, respectively. Skin of all incisions was closed with 4-0 Monocryl and Dermabond after all port sites were removed. The patient was, at this point in time, discontinued from anesthesia and taken to the PACU in stable condition. The patient tolerated the procedure well. No apparent complications. I was present and scrubbed for the entire procedure. MD JULIET Morelos/MYLA , 04:37 PM , 05:08 PM
--- NOTE | 2017-12-02 17:17 | RADRPT ---
EXAM DATE/TIME: 12/02/2017 16:50 [facility] COMPARISON: CHEST SINGLE AP, November 18, 2017, 8:35. CHEST SINGLE AP, December 02, 2017, 13:29. INDICATIONS : Evaluate for pneumothorax post infusaport MEDICAL HISTORY : Diabetes mellitus type II. SURGICAL HISTORY : Hysterectomy. Biliary stent ENCOUNTER: Initial ACUITY: 1 day PAIN SCORE: 0/10 LOCATION: chest FINDINGS: A single AP semierect expiratory view of the chest was obtained and demonstrates interval placement o f a left subclavian implantable port catheter. The tip of the catheter is projected over the superior vena cava and there is no pneumothorax. There is mild scarring or atelectasis again noted the left l helena base. The heart size remains at the upper limits of normal. The bony thorax is intact. CONCLUSION: 1. Interval placement of left subclavian implantable port catheter with no pneumothorax. 2. Patchy opacity remains at the left lung base which may indicate atelectasis or scarring. Christoph Carmona MD on December 02, 2017 at 17:14 Board Certified Radiologist. This report was verified electronically.
[2017-12-02] MEDS ORDERED: DO NOT ADM ANY ANTICOAGULANT DRUGS PRN (17:30)
[2017-12-02] MEDS: ACETAMINOPHEN/HYDROcodone 325 MG/5 MG TAB PO PRN (20:55)
[2017-12-03] VITALS (21 sets, daily range): BP systolic 148–162; BP diastolic 66–78; PULSE 62–92; RESP 16–18; TEMP 98.3–98.6; O2SAT 96–98
--- NOTE | 2017-12-03 00:34 | EKG ---
Date Performed: 12/01/2017 Time Performed: 11:36:24 PTAGE: 62 years EKG: Sinus rhythm WITH FREQUENT SUPRAVENTRICULAR PREMATURE COMPLEXES POSSIBLE ANTERIOR MYOCARDIAL INFARCTION , PROBABL Y OLD ABNORMAL RHYTHM ECG PREVIOUS TRACING : 11/18/2017 11.38 DOCTOR: Norma Vo Interpretating Date/Time 12/03/2017 00:19:35
[2017-12-03] MEDS: ACETAMINOPHEN/HYDROcodone 325 MG/5 MG TAB PO PRN ×2 (00:58→09:05)
[2017-12-03] MEDS: CHLORHEXIDINE GLUCONATE 2 % 1 PACK (2 CLOTHS) TOP SCH (03:32)
[2017-12-03 05:46] LABS: HEMATOCRIT 27.6 % (35.0-46.0); MEAN CELL VOLUME 86.3 FL (80.0-100.0); MEAN CORPUSCULAR HEMOGLOBIN 28.3 PG (27.0-34.0); MEAN CORPUSCULAR HGB CONC 32.7 % (32.0-36.0); PLATELET COUNT 493 TH/MM3 (150-450); RED BLOOD COUNT 3.19 MIL/MM3 (4.00-5.30); RED CELL DISTRIBUTION WIDTH 14.9 % (11.6-17.2); WHITE BLOOD COUNT 17.3 TH/MM3 (4.0-11.0)
[2017-12-03 06:18] LABS: BICARBONATE 22.1 MEQ/L (21.0-32.0); CALCIUM 8.3 MG/DL (8.5-10.1); CREATININE 0.57 MG/DL (0.50-1.00); DIRECT BILIRUBIN ADULT 1.3 MG/DL (0.0-0.2); INDIRECT BILIRUBIN 0.5 MG/DL (0.0-0.8); TOTAL BILIRUBIN ADULT 1.8 MG/DL (0.2-1.0); TOTAL PROTEIN 6.5 GM/DL (6.4-8.2)
[2017-12-03] MEDS: POTASSIUM CHLORIDE INJ 30 MEQ in SODIUM CHLOR 0.45% 1000 ML INJ 1,000 ML IV SCH (07:39)
[2017-12-03] MEDS: INSULIN ASPART SUPPLEMENTAL SCALE SQ SCH ×2 (08:00→12:00)
[2017-12-03] MEDS: SODIUM CHLORIDE 0.9% FLUSH 10 ML FLUSH IV FLUSH SCH (09:00)
[2017-12-03] MEDS: FAMOTIDINE 20 MG/2 ML VIAL IV PUSH SCH (09:01)
[2017-12-03] MEDS: guaiFENesin E.R. 600 MG TAB PO SCH (09:05)
[2017-12-03] MEDS: METOPROLOL TARTRATE 25 MG TAB PO SCH (09:05)
[2017-12-03] MEDS: FLUCONAZOLE 200 MG TAB PO SCH (09:06)
[2017-12-03] MEDS: INSULIN DETEMIR 100 UNITS/ML VIAL SQ SCH (09:06)
[2017-12-03] MEDS: HYDROmorphone HCL PF 2 MG/ML VIAL IV PUSH PRN (10:25)
--- NOTE | 2017-12-03 11:30 | HHI.PR ---
Subjective Subjective Notes Up to chair No issues Ready to go home Objective Vitals/I&O Vital Signs Date Time Temp Pulse Resp B/P (MAP) Pulse Ox O2 Delivery O2 Flow Rate FiO2 12/03/17 09:25 98.6 80 18 160/77 (104) 98 12/03/17 07:00 Room Air 12/02/17 17:45 2 11/30/17 11:30 21 Labs Laboratory Tests Test 12/03/17 04:40 White Blood Count 17.3 Red Blood Count 3.19 Hemoglobin 9.0 Hematocrit 27.6 Mean Corpuscular Volume 86.3 Mean Corpuscular Hemoglobin 28.3 Mean Corpuscular Hemoglobin Concent 32.7 Red Cell Distribution Width 14.9 Platelet Count 493 Mean Platelet Volume 9.0 Blood Urea Nitrogen 7 Creatinine 0.57 Random Glucose 169 Total Protein 6.5 Albumin 2.0 Calcium Level 8.3 Alkaline Phosphatase 308 Aspartate Amino Transf (AST/SGOT) 31 Alanine Aminotransferase (ALT/SGPT) 52 Total Bilirubin 1.8 Direct Bilirubin 1.3 Sodium Level 137 Potassium Level 4.3 Chloride Level 104 Carbon Dioxide Level 22.1 Anion Gap 11 Estimat Glomerular Filtration Rate 108 Indirect Bilirubin 0.5 Date/Time Source Procedure Growth Status 11/27/17 09:40 Urine Clean Catch Urine Culture - Final Staphylococcus Aureus Complete 11/28/17 13:42 Abscess Drainage Gram Stain - Final Complete 11/28/17 13:42 Wound Culture - Final Staphylococcus Aureus Group D Enterococcus Roro Albicans Complete Cardiovascular: Regular Lungs: Clear Abdomen: Other (lap sites c/d/i; non distended ), Post-op tenderness Extremities: No edema Narrative Exam LEFT subclavian port accessed A/P Assessment and Plan 62yo female with newly diagnosed pancreatic carcinoma, biliary obstruction, encasing SMV/portal veins (borderline resectable vs locally advanced), stable. -POD1 lap [place]; port placement -1800 ADA diet -Pain control -General Surgery clear for DC today -Follow up with Dr. Jackson in about 10 days [phone] -Patient would like to call later for an appointment Chelly Burks/[place] [facility] [place] Dec 03, 2017 11:30
[2017-12-03] MEDS ORDERED: ACETAMINOPHEN/HYDROcodone 325 MG/10 MG TAB PO PRN (11:45)
--- NOTE | 2017-12-03 13:41 | PD.ONC.PN ---
Subjective Subjective Remarks Afebrile overnight. Patient very excited to be going home soon. No complaints. states she is going to follow up with an oncologist in [place]. Objective Data Date Time Temp Pulse Resp B/P (MAP) Pulse Ox O2 Delivery O2 Flow Rate FiO2 12/03/17 09:25 98.6 80 18 160/77 (104) 98 12/03/17 08:07 70 12/03/17 07:01 80 12/03/17 07:00 Room Air 12/03/17 06:03 68 12/03/17 05:02 67 12/03/17 04:36 98.3 69 16 158/78 (104) 96 12/03/17 03:55 77 12/03/17 03:08 64 12/03/17 02:09 66 12/03/17 01:05 69 12/03/17 00:52 98.6 71 16 148/76 (100) 98 12/03/17 00:04 68 12/02/17 23:21 142/74 (96) 12/02/17 23:02 83 12/02/17 22:07 80 12/02/17 21:06 82 12/02/17 21:04 172/77 (108) 12/02/17 21:02 98.4 75 18 181/77 (111) 98 12/02/17 20:55 Room Air 12/02/17 20:05 79 12/02/17 19:05 83 12/02/17 18:27 97.8 88 18 152/67 (95) 99 12/02/17 17:45 97.6 69 14 147/65 (92) 97 Nasal Cannula 2 12/02/17 17:30 68 15 138/64 (88) 97 Nasal Cannula 2 12/02/17 17:15 72 12 156/63 (94) 97 Nasal Cannula 2 12/02/17 17:00 85 16 147/67 (93) 95 Nasal Cannula 2 12/02/17 16:45 79 15 153/70 (97) 95 Nasal Cannula 2 12/02/17 16:40 97.7 72 14 153/70 (97) 99 Nasal Cannula 3 12/03/17 12/03/17 12/03/17 07:00 15:00 23:00 Intake Total 540 ml 1000 ml Output Total 251 ml Balance 289 ml 1000 ml Result Diagram: 12/03/1743912/03/17439 Laboratory Results Laboratory Tests Test 12/03/17 04:40 White Blood Count 17.3 TH/MM3 Red Blood Count 3.19 MIL/MM3 Hemoglobin 9.0 GM/DL Hematocrit 27.6 % Mean Corpuscular Volume 86.3 FL Mean Corpuscular Hemoglobin 28.3 PG Mean Corpuscular Hemoglobin Concent 32.7 % Red Cell Distribution Width 14.9 % Platelet Count 493 TH/MM3 Mean Platelet Volume 9.0 FL Blood Urea Nitrogen 7 MG/DL Creatinine 0.57 MG/DL Random Glucose 169 MG/DL Total Protein 6.5 GM/DL Albumin 2.0 GM/DL Calcium Level 8.3 MG/DL Alkaline Phosphatase 308 U/L Aspartate Amino Transf (AST/SGOT) 31 U/L Alanine Aminotransferase (ALT/SGPT) 52 U/L Total Bilirubin 1.8 MG/DL Direct Bilirubin 1.3 MG/DL Sodium Level 137 MEQ/L Potassium Level 4.3 MEQ/L Chloride Level 104 MEQ/L Carbon Dioxide Level 22.1 MEQ/L Anion Gap 11 MEQ/L Estimat Glomerular Filtration Rate 108 ML/MIN Indirect Bilirubin 0.5 MG/DL Administered Medications Medications (Trade) Dose Ordered Sig/Ikara Route PRN Reason Start Time Stop Time Status Last Admin Dose Admin Sodium Chloride (NS Flush) 2 ml UNSCH PRN IV FLUSH FLUSH AFTER USING IV ACCESS 11/18/17 03:30 12/02/17 05:02 Sodium Chloride (NS Flush) 2 ml BID IV FLUSH 11/18/17 09:00 12/02/17 21:06 Famotidine (Pepcid Inj) 20 mg Q12HR IV PUSH 11/18/17 09:00 12/03/17 09:01 Albuterol/ Ipratropium (Duoneb Neb) 1 ampule Q4HR NEB PRN INH WHEEZING 11/18/17 03:30 11/30/17 11:30 Miscellaneous Information 1 Q361D XX 11/18/17 03:30 11/18/17 03:30 Chlorhexidine Gluconate (Chlorhexidine 2% Cloth) Taper DAILY@04 TOP 11/18/17 04:00 11/14/18 03:59 11/22/17 04:00 Magnesium Hydroxide (Milk Of Magnesia Liq) 30 ml Q12H PRN PO Mild constipation 11/18/17 03:30 11/30/17 08:31 Sennosides (Senokot) 17.2 mg Q12H PRN PO Moderate constipation 11/18/17 03:30 11/30/17 08:31 Bisacodyl (Dulcolax Supp) 10 mg DAILY PRN RECTAL SEVERE CONSITIPATION 11/18/17 03:30 11/21/17 06:26 Lactulose (Lactulose Liq) 30 ml DAILY PRN PO SEVERE CONSITIPATION 11/18/17 03:30 11/25/17 18:10 Labetalol HCl (Trandate Inj) 10 mg Q4H PRN IV PUSH SBP greater than 160mm Hg 11/18/17 07:00 11/29/17 13:39 Hydralazine HCl (Apresoline Inj) 10 mg Q6H PRN IV PUSH SBP >160 11/18/17 19:00 11/29/17 08:10 Ondansetron HCl (Zofran Inj) 4 mg Q4H PRN IV PUSH NAUSEA OR VOMITING 11/22/17 10:45 12/02/17 03:53 Insulin Detemir (Levemir Inj) 10 units Q12HR SQ 11/23/17 21:00 12/03/17 09:06 Insulin Aspart (NovoLOG SUPPLEMENTAL SCALE) 1 ACHS SLIDING SCALE SQ 11/25/17 21:00 11/30/17 20:50 Sodium Chloride (NS Inj) 10 ml 2XWEEK IRRIGATION 11/26/17 14:00 11/26/17 20:27 Hydromorphone HCl (Dilaudid Pf Inj) 1 mg Q4H PRN IV PUSH SEVERE BREAKTHOUGH PAIN 11/26/17 19:00 12/03/17 10:25 Guaifenesin (Mucinex Er) 600 mg BID PO 11/26/17 21:00 12/03/17 09:05 Prochlorperazine Edisylate (Compazine Inj) 10 mg Q8H PRN IV PUSH nausea 11/28/17 14:00 12/02/17 05:02 Metoprolol Tartrate (Lopressor) 75 mg Q12HR PO 11/29/17 21:00 12/03/17 09:05 Potassium Chloride 30 meq/ Sodium Chloride 1,015 ml @ 42 mls/hr Q24H IV 12/01/17 15:00 12/03/17 07:39 Fluconazole (Diflucan) 400 mg DAILY PO 12/01/17 14:45 12/03/17 09:06 Cefazolin Sodium 1000 mg/Sodium Chloride 100 ml @ 200 mls/hr Q12H IV 12/01/17 15:00 12/03/17 04:10 Objective Remarks GENERAL: Middle aged female, sitting up in bed in [employer]. SKIN: Warm and dry. HEAD: Normocephalic. EYES: No injection or drainage. NECK: Supple, trachea midline. CARDIOVASCULAR: Regular rate and rhythm RESPIRATORY: Breath sounds equal bilaterally. No accessory muscle use. GASTROINTESTINAL: Abdomen soft, non-tender, nondistended. EXTREMITIES: No cyanosis NEUROLOGICAL: awake and alert. normal speech. Assessment/Plan Problem List: (1) Pancreatic cancer ICD Codes: C25.9 - Malignant neoplasm of pancreas, unspecified Plan: --s/p port placement and lap [place] at 12/02 --planning to receive further treatment in [place]. Assessment 62y/o female with newly diagnosed pancreatic adenocarcinoma. h/o Diabetes, Osteoarthritis. Plan 1. oncology clear for discharge 2. follow up with oncology in [place]. Radha Bardales Dec 03, 2017 13:41
[2017-12-03] MEDS ORDERED: SODIUM CHLORIDE 0.9% FLUSH 10 ML FLUSH IV FLUSH PRN (14:45)
--- NOTE | 2017-12-03 15:27 | HHI.HCPN ---
Reason for visit a. To assist with evaluation and management of symptoms including: Pain, nausea, constipation b. To assist medical decision maker(s) with: better understanding of current medical conditions; weighing benefits/burdens of medical treatment options; making medical treatment decisions. . Subjective/Interval History Ms. Polo is a 62 year-old female who lives in [place], [place]. She was admitted to [facility] for abdominal pain and nausea with a duration of 1 week. Patient was diagnosed with diabetic ketoacidosis. CT scan and MRCP revealed gallstones and a biliary obstruction as well as a cystic mass in the head of the pancreas. A HIDA scan was also concerning for common bile duct obstruction. The patient was transferred to [facility] for further evaluation and possible ERCP. 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 S/P internal biliary stent placement. Follow-up visit for symptom management and clarification of medical treatment goals. Patient seen and assessed in room 240. Patient reporting intermittent, sharp abdominal pain rated 8 to 9 out of 10. Status post port placement and laparoscopic cholecystectomy yesterday 12/02/2017. PRN Hartsel and hydromorphone are available. Hartsel dose increased from 5-325mg to 10-325 mg q4 hours PO as needed for pain >5. Nausea and constipation are managed at this point in time. Patient has been cleared by general surgery and oncology for discharge. Patient will follow up with oncology and [place], case management is assisting with discharge planning. . Advance Directives Advance Directive Specifics Significant change in goals: Follow-up with oncology in [place] . Objective Vital Signs Date Time Temp Pulse Resp B/P (MAP) Pulse Ox O2 Delivery O2 Flow Rate FiO2 12/03/17 09:25 98.6 80 18 160/77 (104) 98 12/03/17 08:07 70 12/03/17 07:01 80 12/03/17 07:00 Room Air 12/03/17 06:03 68 12/03/17 05:02 67 12/03/17 04:36 98.3 69 16 158/78 (104) 96 12/03/17 03:55 77 12/03/17 03:08 64 12/03/17 02:09 66 12/03/17 01:05 69 12/03/17 00:52 98.6 71 16 148/76 (100) 98 12/03/17 00:04 68 12/02/17 23:21 142/74 (96) 12/02/17 23:02 83 12/02/17 22:07 80 12/02/17 21:06 82 12/02/17 21:04 172/77 (108) 12/02/17 21:02 98.4 75 18 181/77 (111) 98 12/02/17 20:55 Room Air 12/02/17 20:05 79 12/02/17 19:05 83 12/02/17 18:27 97.8 88 18 152/67 (95) 99 12/02/17 17:45 97.6 69 14 147/65 (92) 97 Nasal Cannula 2 12/02/17 17:30 68 15 138/64 (88) 97 Nasal Cannula 2 12/02/17 17:15 72 12 156/63 (94) 97 Nasal Cannula 2 12/02/17 17:00 85 16 147/67 (93) 95 Nasal Cannula 2 12/02/17 16:45 79 15 153/70 (97) 95 Nasal Cannula 2 12/02/17 16:40 97.7 72 14 153/70 (97) 99 Nasal Cannula 3 Intake & Output 12/03/17 12/03/17 07:00 19:00 Intake Total 645 ml 1000 ml Output Total 251 ml Balance 394 ml 1000 ml Intake Oral 440 ml IV Total 205 ml 1000 ml Output Urine Total 250 ml Stool Total 1 ml # Voids 5 . Physical Exam CONSTITUTIONAL/GENERAL: This is an adequately nourished patient, in no apparent distress. TUBES/LINES/DRAINS: VAD, Hendrickson catheter SKIN: Jaundice. Ecchymoses on upper extremities. Skin temperature appropriate. Not diaphoretic. HEAD: Atraumatic. Normocephalic. EYES: Pupils equal and round and reactive. Extraocular motions intact. No injection or drainage. Fundi not examined. ENT: Hearing grossly normal. Nose without bleeding or purulent drainage. NECK: Trachea midline. Supple, nontender. No palpable thyroid enlargement or nodularity. CARDIOVASCULAR: Regular rate and rhythm without murmurs, gallops, or rubs. No JVD. Peripheral pulses symmetric. RESPIRATORY/CHEST: Symmetric, unlabored respirations. Clear to auscultation. Breath sounds equal bilaterally. No wheezes, rales, or rhonchi. GASTROINTESTINAL: Abdomen is tender to palpation. Bowel sounds active 4 quadrants. GENITOURINARY: Without palpable bladder distension. MUSCULOSKELETAL: Extremities without clubbing, cyanosis, or edema. No obvious deformities no mottling or clubbing. LYMPHATICS: No palpable cervical or supraclavicular adenopathy. NEUROLOGICAL: Awake and alert. Follows commands. Cognitively sharp. Moves all extremities. PSYCHIATRIC: No obvious anxiety/depression. no apparent hallucinations or other psychotic thought process. . Diagnostic Tests Laboratory Laboratory Tests Test 12/01/17 05:00 12/01/17 16:13 12/02/17 07:15 12/03/17 04:40 White Blood Count 8.9 TH/MM3 (4.0-11.0) 9.2 TH/MM3 (4.0-11.0) 17.3 TH/MM3 (4.0-11.0) Red Blood Count 3.30 MIL/MM3 (4.00-5.30) 3.33 MIL/MM3 (4.00-5.30) 3.19 MIL/MM3 (4.00-5.30) Hemoglobin 9.4 GM/DL (11.6-15.3) 9.5 GM/DL (11.6-15.3) 9.0 GM/DL (11.6-15.3) Hematocrit 28.0 % (35.0-46.0) 28.3 % (35.0-46.0) 27.6 % (35.0-46.0) Mean Corpuscular Volume 84.9 FL (80.0-100.0) 85.1 FL (80.0-100.0) 86.3 FL (80.0-100.0) Mean Corpuscular Hemoglobin 28.5 PG (27.0-34.0) 28.6 PG (27.0-34.0) 28.3 PG (27.0-34.0) Mean Corpuscular Hemoglobin Concent 33.6 % (32.0-36.0) 33.7 % (32.0-36.0) 32.7 % (32.0-36.0) Red Cell Distribution Width 14.6 % (11.6-17.2) 14.5 % (11.6-17.2) 14.9 % (11.6-17.2) Platelet Count 403 TH/MM3 (150-450) 422 TH/MM3 (150-450) 493 TH/MM3 (150-450) Mean Platelet Volume 8.6 FL (7.0-11.0) 8.7 FL (7.0-11.0) 9.0 FL (7.0-11.0) Blood Urea Nitrogen 6 MG/DL (7-18) 6 MG/DL (7-18) 5 MG/DL (7-18) 7 MG/DL (7- 18) Creatinine 0.62 MG/DL (0.50-1.00) 0.49 MG/DL (0.50-1.00) 0.54 MG/DL (0.50-1.00) 0.57 MG/DL (0.50-1.00) Random Glucose 137 MG/DL (74-106) 111 MG/DL (74-106) 90 MG/DL (74-106) 169 MG/DL (74-106) Total Protein 6.8 GM/DL (6.4-8.2) 6.5 GM/DL (6.4-8.2) Albumin 2.1 GM/DL (3.4-5.0) 2.0 GM/DL (3.4-5.0) Calcium Level 8.4 MG/DL (8.5-10.1) 8.4 MG/DL (8.5-10.1) 8.4 MG/DL (8.5-10.1) 8.3 MG/DL (8.5-10.1) Alkaline Phosphatase 425 U/L (45-117) 308 U/L (45-117) Aspartate Amino Transf (AST/SGOT) 31 U/L (15-37) 31 U/L (15-37) Alanine Aminotransferase (ALT/SGPT) 69 U/L (10-53) 52 U/L (10-53) Total Bilirubin 2.0 MG/DL (0.2-1.0) 1.8 MG/DL (0.2-1.0) Direct Bilirubin 1.5 MG/DL (0.0-0.2) 1.3 MG/DL (0.0-0.2) Sodium Level 139 MEQ/L (136-145) 139 MEQ/L (136-145) 139 MEQ/L (136-145) 137 MEQ/L (136-145) Potassium Level 2.7 MEQ/L (3.5-5.1) 3.6 MEQ/L (3.5-5.1) 3.0 MEQ/L (3.5-5.1) 4.3 MEQ/L (3.5-5.1) Chloride Level 102 MEQ/L (98-107) 104 MEQ/L (98-107) 105 MEQ/L (98-107) 104 MEQ/L (98-107) Carbon Dioxide Level 28.2 MEQ/L (21.0-32.0) 25.6 MEQ/L (21.0-32.0) 25.0 MEQ/L (21.0-32.0) 22.1 MEQ/L (21.0-32.0) Anion Gap 9 MEQ/L (5-15) 9 MEQ/L (5-15) 9 MEQ/L (5-15) 11 MEQ/L (5-15) Estimat Glomerular Filtration Rate 98 ML/MIN (>89) 129 ML/MIN (>89) 115 ML/MIN (>89) 108 ML/MIN (>89) Magnesium Level 2.2 MG/DL (1.5-2.5) Indirect Bilirubin 0.5 MG/DL (0.0-0.8) 0.5 MG/DL (0.0-0.8) . Result Diagram: 12/03/170 12/03/17 0440 Imaging Last 72 hours Impressions Chest X-Ray 12/02/17 0000 Signed Impressions: Service Date/Time: Saturday, December 02, 2017 16:50 - CONCLUSION: 1. Interval placement of left subclavian implantable port catheter with no pneumothorax. 2. Patchy opacity remains at the left lung base which may indicate atelectasis or scarring. Christoph Carmona MD Chest X-Ray 12/02/17 0000 Signed Impressions: Service Date/Time: Saturday, December 02, 2017 13:29 - CONCLUSION: Satisfactory port positioning Lionel Alfaro MD . Assessment and Plan Disease Oriented Problem List: (1) Diabetes (2) Cholelithiasis (3) Hypertension (4) Elevated LFTs (5) Pancreatic cancer Symptom Scale: (1) Pain 0-10 Scale: 8 (2) Nausea 0-10 Scale: Unable to quantify (3) Constipation 0-10 Scale: Unable to quantify Pertinent Non-Medical Issues Psychosocial: Patient moved to [place], [place] when she was around 12 years old. Patient has 1 brother, Edwardo, who lives locally. Her mother is and her father is alive and well, living independently nearby. Patient is ; she has no children. She works at a [employer]. 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 Spiritual: Patient defines herself as "spiritual" Legal: Per [place] statutes, in the absence of written advanced directives healthcare proxy decision making falls to the patient's father Ethical issues impacting care: No known ethical issues impacting care. . Important Contacts Jarett Polo, father: [phone] Edwardo Polo, brother: [phone] . Prognosis Patient is a 62 yo female with newly diagnosed pancreatic adenocarcinoma. General surgery is uncertain if the mass is resectable at this time; patient has not yet decided if she wants to proceed with aggressive interventions. Plan for internal biliary stent placement tomorrow and port placement with cholecystectomy on 12/02/2017. Patient will make a decision whether she wishes to proceed with more complex surgery after Saturday. . Code Status: Full Code Plan * FULL CODE * Decision-making: Patient currently has good insight and judgment related to her medical condition. She understands that per [place] statutes, in the absence of written advanced directives healthcare proxy is decision making will follow to her father. * Patient plans to follow-up with oncologist in [place], case management assisting with discharge plan. * Discussed patient with bedside nurse, Radha Bardales (oncology PA), case coordinator and Dr. Way * Symptom management: = Pain: Multifactoral; contributing factors include invasive lines, tumor burden, cholelithiasis, CBD obstruction, abdominal distention, constipation. PRN Hartsel and IV Dilaudid are available. Patient reporting intermittent, sharp abdominal pain rated 8 to 9 out of 10. Status post port placement and laparoscopic cholecystectomy yesterday 12/02/2017. PRN Hartsel and hydromorphone are available. Hartsel dose increased from 5-325mg to 10-325 mg q4 hours PO as needed for pain >5. = Constipation: Patient is high risk for constipation secondary to low oral intake, impaired mobility, opioid analgesics and tumor burden. LBM: 11/27/2017, soft. Current orders for PRN Milk of magnesia, Senokot, Dulcolax suppository and Lactulose. Educated the patient on factors that may contribute to constipation as well as the goal that the patient will have a BM every 3 days. = Nausea: Nausea managed at this time. She has orders for PRN Phenergan IM and IV Zofran. * Palliative care will continue to follow this patient throughout her hospitalization to establish trust, assist with symptom management and clarification of medical treatment goals . Attestation To help prompt me to consider important information that might be impacting today's encounter and assessment, information from prior notes written by myself or my colleagues may have been "brought forward" into today's note. My signature on this note, however, is an attestation that I personally performed the exam, history, and/or decision-making noted today, and, unless otherwise indicated, the interactions with patient, family, and staff as well as the review of records all occurred today. I also attest that the listed assessment and stated plan reflect my best clinical judgment today based on the combination of historical information, prior notes, and today's exam/ interactions. When time spent is documented, it refers only to time spent today by the signer, or if indicated, combined time spent today by collaborating physician/nurse practitioner. . Hansa Padilla Dec 03, 2017 15:27
== END 2017-12-03 17:02 | disposition home or self-care (01) | DRG 417 ==
LOC: HIMW 11-18 02:30 → HCIN 11-22 21:35
PROVIDERS: ADMIT Family Medicine; ATTEND Family Medicine
PROC: 0FJB8ZZ Inspection of Hepatobiliary Duct, Via Natural or Artificial Opening Endoscopic (ICD-10-PCS; 2017-11-18)
PROC: BF101ZZ Fluoroscopy of Bile Ducts using Low Osmolar Contrast (ICD-10-PCS; 2017-11-18)
PROC: 0F9930Z Drainage of Common Bile Duct with Drainage Device, Percutaneous Approach (ICD-10-PCS; 2017-11-19)
PROC: BF101ZZ Fluoroscopy of Bile Ducts using Low Osmolar Contrast (ICD-10-PCS; 2017-11-19)
PROC: 0FBD8ZX Excision of Pancreatic Duct, Via Natural or Artificial Opening Endoscopic, Diagnostic (ICD-10-PCS; 2017-11-22)
PROC: 0F793DZ Dilation of Common Bile Duct with Intraluminal Device, Percutaneous Approach (ICD-10-PCS; 2017-11-28)
PROC: BF101ZZ Fluoroscopy of Bile Ducts using Low Osmolar Contrast (ICD-10-PCS; 2017-11-28)
PROC: 02HV33Z Insertion of Infusion Device into Superior Vena Cava, Percutaneous Approach (ICD-10-PCS; 2017-12-02)
PROC: B5181ZA Fluoroscopy of Superior Vena Cava using Low Osmolar Contrast, Guidance (ICD-10-PCS; 2017-12-02)
PROC: 0FT44ZZ Resection of Gallbladder, Percutaneous Endoscopic Approach (ICD-10-PCS; principal; 2017-12-02 13:27)
PROC: 0JH60VZ Insertion of Infusion Pump into Chest Subcutaneous Tissue and Fascia, Open Approach (ICD-10-PCS; 2017-12-02 13:27)
DX: C25.0 Malignant neoplasm of head of pancreas (principal); K83.1 Obstruction of bile duct; K76.0 Fatty (change of) liver, not elsewhere classified; L02.211 Cutaneous abscess of abdominal wall; K80.12 Calculus of gallbladder with acute and chronic cholecystitis without obstruction; I10 Essential (primary) hypertension; E11.9 Type 2 diabetes mellitus without complications; M19.90 Unspecified osteoarthritis, unspecified site; K59.00 Constipation, unspecified; E87.6 Hypokalemia; R19.7 Diarrhea, unspecified; Z79.4 Long term (current) use of insulin; Z87.891 Personal history of nicotine dependence
CPT/HCPCS: 43242; 47538; 47540; 71045; 74160; 76000; 76705; 76937; 80048; 80053; 80074; 80076; 81001; 82103; 82105; 82150; 82390; 82728; 82948; 83036; 83520; 83540; 83550; 83690; 83735; 84100; 84132; 85007; 85025; 85027; 85610; 85730; 86038; 86255; 86301; 86403; 87070; 87086; 87147; 87186; 87205; 87641; 88112; 88173; 88304; 88305; 93005; 94664; 99152; 99153; C1725; C1729; C1751; C1769; C1788; C1876; C1887; C1894; J0131; J0330; J0360; J0690; J0780; J1100; J1170; J1644; J1815; J2250; J2270; J2405; J2543; J2710; J3010; J3475; J3480; J7050; J7120; Q9967